=== PATIENT | female | born 1995 ===

== ENCOUNTER 2017-01-15 23:01 | Emergency (ER) | payer MEDICAID, OTHER ==
[2017-01-15 23:07] VITALS: BP 121/74; PULSE 88; RESP 18; TEMP 98; O2SAT 100
--- NOTE | 2017-01-15 23:45 | ED PDOC ---
HPI: Abdomen Time Seen by Provider: 01/15/17 23:14 Chief Complaint (Nursing): Abdominal Pain Chief Complaint (Provider): Abdominal Pain History Per: Patient History/Exam Limitations: no limitations Onset/Duration Of Symptoms: Days (4x), Worse Since (yesterday) Current Symptoms Are (Timing): Still Present Severity: Moderate Location Of Pain/Discomfort: Suprapubic Quality Of Discomfort: Cramping Associated Symptoms: denies: Fever, Nausea, Vomiting, Diarrhea Additional Complaint(s): 21 year old female with a pertinent medical history of sickle cell anemia presents to the ED with complaints of severe menstrual cramps that started 4x days ago but have worsened since yesterday. She reports that she has severe menstrual cramps on occasion and has taken 250mg ibuprofen today 6x hours prior to arrival (unclear dosage?). She denies having any associated symptoms including a fever, nausea, vomiting, or diarrhea. PMD: Patient does not recall. Abnormal Vaginal Bleeding: No Past Medical History Reviewed: Historical Data, Nursing Documentation Vital Signs: Last Vital Signs Temp 98 F 01/15/17 23:04 Pulse 88 01/15/17 23:04 Resp 18 01/15/17 23:04 BP 121/74 01/15/17 23:04 Pulse Ox 100 01/15/17 23:55 - Medical History PMH: Asthma, Sickle Cell Disease Denies: Anemia, Atrial Fibrillation, Bronchitis, CAD, Cardia Arrhythmia, CHF , COPD, Emphysema, HIV, HTN, Hypercholesterolemia, Mitral Valve Prolapse, Peripheral Edema, Pneumonia, Pulmonary Embolism, Chronic Kidney Disease, Sleep Apnea - Surgical History Surgical History: Cholecystectomy, Tonsillectomy Denies: Pacemaker - Family History Family History: States: Unknown Family Hx - Social History Alcohol: None Drugs: Denies - Home Medications Home Medications: Ambulatory Orders Medication Instructions Recorded Folic Acid 1 mg PO DAILY 04/25/16 Hydroxyurea [Hydrea] 1,500 mg PO DAILY 04/25/16 oxyCODONE/Acetaminophen [Percocet 1 tab PO Q4 PRN #0 tab 04/27/16 5/325 mg Tab] Ketorolac Tromethamine [Toradol] 10 mg PO Q6 #12 tab 01/15/17 - Allergies Allergies/Adverse Reactions: Allergies Allergy/AdvReac Type Severity Reaction Status Date / Time No Known Allergies Allergy Verified 04/24/16 23:11 Review of Systems ROS Statement: Except As Marked, All Systems Reviewed And Found Negative Constitutional: Negative for: Fever Gastrointestinal: Positive for: Abdominal Pain (suprapubic ). Negative for: Nausea, Vomiting, Diarrhea Genitourinary Female: Positive for: Vaginal Bleeding (consistent with menstrual cycle) Physical Exam - Reviewed Nursing Documentation Reviewed: Yes Vital Signs Reviewed: Yes - Physical Exam Appears: Positive for: Well, Non-toxic, No Acute Distress Head Exam: Positive for: ATRAUMATIC, NORMOCEPHALIC Skin: Positive for: Pallor (slight pale skin) Eye Exam: Positive for: Scleral icterus (slight) Neurologic/Psych: Positive for: Alert, Oriented (3x) - ECG O2 Sat by Pulse Oximetry: 100 (RA) Pulse Ox Interpretation: Normal Medical Decision Making Medical Decision Makin:14 Initial impression: 21 year old female with severe menstrual cramps. Initial plan: * upreg * udip * toradol 60mg IM * reevaluation 1145PM: Pt. reports complete resolution of pain after tordaol and wants to go home. Told to f/u w/ [employer] or return for worsening/concerning symptoms. Scribe Attestation: Documented by Garima Rothman, acting as a scribe for Vikram Song MD. Provider Scribe Attestation: All medical record entries made by the Scribe were at my direction and personally dictated by me. I have reviewed the chart and agree that the record accurately reflects my personal performance of the history, physical exam, medical decision making, and the department course for this patient. I have also personally directed, reviewed, and agree with the discharge instructions and disposition. Disposition - Clinical Impression Clinical Impression: Menstrual cramp - Disposition [facility] Disposition: Routine/Home Disposition Time: 23:45 Condition: STABLE Prescriptions: Ketorolac Tromethamine [Toradol] 10 mg PO Q6 #12 tab Instructions: Dysmenorrhea (ED) Print Language: URUGUAYAN
== END 2017-01-16 00:04 | disposition home or self-care (01) ==
LOC: H.ER 23:01
DX: N94.6 Dysmenorrhea, unspecified (principal)

== ENCOUNTER 2017-01-16 11:34 | Emergency (ER) | payer OTHER ==
[2017-01-16 11:39] VITALS: O2SAT 97
[2017-01-16 12:32] LABS: HEMATOCRIT 28.1 % (34.0-47.0); MEAN CELL VOLUME 102.9 fl (81.0-99.0); MEAN CORPUSCULAR HEMOGLOBIN 37.5 pg (27.0-31.0); MEAN CORPUSCULAR HGB CONC 36.4 g/dL (33.0-37.0); PLATELET COUNT 439 K/uL (130-400); RED CELL DISTRIBUTION WIDTH 23.4 % (11.5-14.5); WHITE BLOOD COUNT 17.4 K/uL (4.8-10.8)
[2017-01-16 12:51] LABS: ALB/GLOB RATIO 0.9 (1.0-2.1); ALKALINE PHOSPHATASE 152 U/L (38-126); ALT/SGPT 27 U/L (9-52); AST/SGOT 101 U/L (14-36); BILIRUBIN,TOTAL 6.8 mg/dl (0.2-1.3); BLOOD UREA NITROGEN 8 mg/dl (7-17); CALCIUM 9.6 mg/dL (8.4-10.2); CARBON DIOXIDE 21 mmol/L (22-30); CHLORIDE 104 mmol/L (98-107); GFR AFRICAN-AMERICAN > 60; GLUCOSE,RANDOM 100 mg/dL (65-105); SODIUM 140 mmol/l (132-148); TOTAL PROTEIN 9.6 G/DL (6.3-8.2)
[2017-01-16 12:53] LABS: POTASSIUM 5.4 MMOL/L (3.6-5.0)
[2017-01-16] MEDS ORDERED: Sodium Chloride 0.9% 1,000 ML IV STA (13:22)
[2017-01-16 13:23] LABS: NEUTROPHIL 76 % (42-75); NUCLEATED RED BLOOD CELL 1 % (0-0); TOTAL CELLS COUNTED 100
[2017-01-16 13:24] LABS: GIANT PLATELETS PRESENT; LARGE PLATELETS PRESENT
--- NOTE | 2017-01-16 14:34 | RAD ---
HISTORY: elevated wbc, back pain COMPARISON: 11/22/2016. TECHNIQUE: Chest PA and lateral FINDINGS: LUNGS: The lungs are well inflated and clear. PLEURA: No significant pleural effusion identified. No pneumothorax apparent. CARDIOVASCULAR: Normal. OSSEOUS STRUCTURES: No significant abnormalities. VISUALIZED UPPER ABDOMEN: Normal. OTHER FINDINGS: None. IMPRESSION: No active pulmonary disease.
[2017-01-16 14:41] LABS: RBC URINE 2 /hpf (0-3); URINE BACTERIA OCC (<OCC); URINE BILIRUBIN NEGATIVE (NEGATIVE); URINE BLOOD SMALL (NEGATIVE); URINE COLOR AMBER (YELLOW); URINE GLUCOSE (UA) NEG (Normal); URINE KETONE TRACE mg/dL (NEGATIVE); URINE LEUKOCYTE ESTERASE NEG Leu/uL (Negative); URINE PROTEIN 30 mg/dL (NEGATIVE); WBC URINE 11 /hpf (0-5)
[2017-01-16] MEDS ORDERED: cefTRIAXone (Rocephin) 1 gm Inj ONE (17:58)
--- NOTE | 2017-01-16 18:25 | ED PDOC ---
HPI: Back Time Seen by Provider: 01/16/17 11:39 Chief Complaint (Nursing): Back Pain Chief Complaint (Provider): Low Back Pain History Per: Patient History/Exam Limitations: no limitations Onset/Duration Of Symptoms: Hrs (since this morning) Current Symptoms Are (Timing): Still Present Quality Of Discomfort: Other (similar to previous sickle cell crisis) Severity: Moderate Associated Symptoms: Other (b/l leg pain) Additional Complaint(s): Patric Fernandez is a 21 year old female, with a past medical history inclusive of sickle cell anemia, who presents to the ED on 01/16/17 for the evaluation of moderate lower back and b/l leg pain that she has experienced since this morning ; further described as similar to that felt during previous sickle cell crises. Denies acute injury/trauma as well as numbness/tingling, URI symptoms, nausea, vomiting or diarrhea. Of note, patient had presented to the ED yesterday with complaints of menstrual cramps, for which she had been given Toradol prior to being discharged home. PMD: does not remember Past Medical History Reviewed: Historical Data, Nursing Documentation, Vital Signs Vital Signs: Last Vital Signs Temp 97 F L 01/16/17 11:35 Pulse 120 H 01/16/17 11:35 Resp 18 01/16/17 11:35 BP 101/52 L 01/16/17 11:35 Pulse Ox 97 01/16/17 11:35 - Medical History PMH: Asthma, Sickle Cell Disease Denies: Atrial Fibrillation, Bronchitis, CAD, Cardia Arrhythmia, CHF, COPD, Emphysema, HIV, HTN, Hypercholesterolemia, Mitral Valve Prolapse, Peripheral Edema, Pneumonia, Pulmonary Embolism, Chronic Kidney Disease, Sleep Apnea - Surgical History Surgical History: Cholecystectomy, Tonsillectomy Denies: Pacemaker - Family History Family History: States: Unknown Family Hx - Social History Current smoker - smoking cessation education provided: No Alcohol: None Drugs: Denies - Home Medications Home Medications: Ambulatory Orders Medication Instructions Recorded Folic Acid 1 mg PO DAILY 04/25/16 Hydroxyurea [Hydrea] 1,500 mg PO DAILY 04/25/16 oxyCODONE/Acetaminophen [Percocet 1 tab PO Q4 PRN #0 tab 04/27/16 5/325 mg Tab] Ketorolac Tromethamine [Toradol] 10 mg PO Q6 #12 tab 01/15/17 Cephalexin [Keflex] 500 mg PO TID #21 capsule 01/16/17 - Allergies Allergies/Adverse Reactions: Allergies Allergy/AdvReac Type Severity Reaction Status Date / Time No Known Allergies Allergy Verified 04/24/16 23:11 Review of Systems ROS Statement: Except As Marked, All Systems Reviewed And Found Negative ENT: Negative for: Nose Discharge, Throat Pain Cardiovascular: Negative for: Chest Pain Respiratory: Negative for: Cough, Shortness of Breath Gastrointestinal: Negative for: Nausea, Vomiting, Diarrhea Musculoskeletal: Positive for: Back Pain (low back), Leg Pain (b/l leg) Neurological: Negative for: Weakness, Numbness Physical Exam - Reviewed Nursing Documentation Reviewed: Yes Vital Signs Reviewed: Yes - Physical Exam Appears: Positive for: Non-toxic, No Acute Distress Head Exam: Positive for: ATRAUMATIC, NORMOCEPHALIC Skin: Positive for: Normal Color, Warm, Dry. Negative for: Pallor Eye Exam: Positive for: Normal appearance, PERRL ENT: Positive for: Normal ENT Inspection. Negative for: Pharyngeal Erythema, Tonsillar Exudate, Tonsillar Swelling Neck: Positive for: Normal, Painless ROM, Supple Cardiovascular/Chest: Positive for: Regular Rate, Rhythm. Negative for: Murmur Respiratory: Positive for: Normal Breath Sounds. Negative for: Respiratory Distress Gastrointestinal/Abdominal: Positive for: Normal Exam, Soft. Negative for: Tenderness Back: Positive for: Normal Inspection Extremity: Positive for: Normal ROM (moving all extremities well), Capillary Refill (<2 seconds) Neurologic/Psych: Positive for: Alert, Oriented. Negative for: Motor/Sensory Deficits - Laboratory Results Result Diagrams: 01/16/17 12:28 01/16/17 12:28 - ECG O2 Sat by Pulse Oximetry: 97 (RA) Pulse Ox Interpretation: Normal Medical Decision Making Medical Decision Makin:39 Initial Impression: back pain, leg pain in setting of known history of sickle cell crisis Initial Plan: * CXR * Labs * Reticulocyte Count * Upreg * Udip * IV NS 1000ml at 1000mls/hr * Toradol 30mg IV * Reevaluation 15:38 Patient is complaining of persistent pain despite administration of Toradol, will order Morphine 4mg IV. 16:37 Labs reviewed, hemoglobin/hematocrit and reticulocyte levels are at baseline as compared with previous records, however patient is demonstrating some notable leukocytosis (17.4). Urine dip is indicative of UTI, will order urinalysis and culture as well as administration of Rocephin IVPB. 18:09 Upon provider reevaluation patient reports improvement in pain s/p administration of Morphine. Scribe Attestation: Documented by Lindsey Ruelas, acting as a scribe for Flower Caballero PA-C. Provider Scribe Attestation: All medical record entries made by the Scribe were at my direction and personally dictated by me. I have reviewed the chart and agree that the record accurately reflects my personal performance of the history, physical exam, medical decision making, and the department course for this patient. I have also personally directed, reviewed, and agree with the discharge instructions and disposition. Disposition - Clinical Impression Clinical Impression: Sickle cell anemia, UTI (urinary tract infection) - Patient ED Disposition Is Patient to be Admitted: No Counseled Patient/Family Regarding: Diagnosis, Need For Followup, Rx Given - Disposition Referrals: [facility] [Outside] Disposition: Routine/Home Disposition Time: 18:43 Condition: GOOD Prescriptions: Cephalexin [Keflex] 500 mg PO TID #21 capsule Instructions: Urinary Tract Infection in Women (ED)
[2017-01-16 18:56] VITALS: BP 110/68; PULSE 89; RESP 19; TEMP 98.6
== END 2017-01-16 19:15 | disposition home or self-care (01) ==
LOC: H.ER 11:34
DX: N39.0 Urinary tract infection, site not specified (principal); D72.829 Elevated white blood cell count, unspecified; D57.219 Sickle-cell/Hb-C disease with crisis, unspecified; M79.606 Pain in leg, unspecified

== ENCOUNTER 2017-05-28 21:44 | Inpatient (IN) | payer MEDICAID, OTHER ==
[2017-05-28 22:06] VITALS: BMI 24.7
--- NOTE | 2017-05-28 22:15 | ED PDOC ---
HPI: Chest Pain Chief Complaint (Provider): Chest pain and left leg pain History Per: Patient History/Exam Limitations: no limitations Onset/Duration Of Symptoms: Hrs Current Symptoms Are (Timing): Still Present Severity: Severe Pain Scale Rating Of: 10 Front/Back of Body, Lg (Color): 1 - Pain 2 - Pain Modifying Factors: None <Flower Caballero - Last Filed: 05/28/17 23:24> <Carol Torres - Last Filed: 05/29/17 15:52> Time Seen by Provider: 05/28/17 21:51 Chief Complaint (Nursing): Chest Pain Additional Complaint(s): Pt with history of sickle cell anemia presents with central chest pain, non- radiating and left leg pain. Pt states leg left pain is common for her with the SSA however the chest pain is new. Pt reports no SOB or worsening pain with inspiration. Denies N/V/D. Pt reports taking her oxycodone today and states it did not help the pain. (Flower Caballero) Supervising Attending Note <Flower Caballero - Last Filed: 05/28/17 23:24> - Supervising Attending Note The Documented history was done by the: Physician Digital Operations Analyst The documented physical exam was done by the: Physician Digital Operations Analyst, Attending Physician - Attestation: I have personally seen and examined this patient.: Yes I have fully participated in the care of the patient.: Yes I have reviewed all pertinent clinical information: Yes <Carol Torres - Last Filed: 05/29/17 15:52> - Notes: Notes:: Pt's physician switched to Dr Hendrickson. (Carol Torres) Past Medical History Reviewed: Historical Data, Nursing Documentation, Vital Signs - Medical History PMH: Asthma, Sickle Cell Disease Denies: Anemia, Atrial Fibrillation, Bronchitis, CAD, Cardia Arrhythmia, CHF , COPD, Emphysema, HIV, HTN, Hypercholesterolemia, Mitral Valve Prolapse, Peripheral Edema, Pneumonia, Pulmonary Embolism, Chronic Kidney Disease, Sleep Apnea - Surgical History Surgical History: Cholecystectomy (At age 11), Tonsillectomy Denies: Pacemaker - Family History Family History: States: Unknown Family Hx - Living Arrangements Living Arrangements: With Family - Social History Current smoker - smoking cessation education provided: No Alcohol: None Drugs: Denies <Flower Caballero - Last Filed: 05/28/17 23:24> <BrianCarol J - Last Filed: 05/29/17 15:52> Vital Signs: Last Vital Signs Temp 98.8 F 05/29/17 12:28 Pulse 85 05/29/17 12:28 Resp 20 05/29/17 12:28 BP 110/62 05/29/17 12:28 Pulse Ox 95 05/29/17 12:28 - Home Medications Home Medications: Ambulatory Orders Medication Instructions Recorded Folic Acid 1 mg PO DAILY #30 01/18/17 Hydroxyurea [Hydrea] 1,500 mg PO DAILY #30 01/18/17 Ibuprofen [Motrin Tab] 400 mg PO Q6H PRN #30 tab 01/18/17 oxyCODONE/Acetaminophen [Percocet 1 ea PO Q6 PRN #10 tab 01/18/17 5/325 mg Tab] - Allergies Allergies/Adverse Reactions: Allergies Allergy/AdvReac Type Severity Reaction Status Date / Time No Known Allergies Allergy Verified 05/28/17 22:06 Review of Systems ROS Statement: Except As Marked, All Systems Reviewed And Found Negative Constitutional: Negative for: Fever, Chills Cardiovascular: Positive for: Chest Pain. Negative for: Palpitations Respiratory: Negative for: Cough, Shortness of Breath Musculoskeletal: Positive for: Leg Pain <Flower Caballero - Last Filed: 05/28/17 23:24> Physical Exam - Reviewed Nursing Documentation Reviewed: Yes Vital Signs Reviewed: Yes - Physical Exam Appears: Positive for: Well, Non-toxic, No Acute Distress Head Exam: Positive for: ATRAUMATIC, NORMAL INSPECTION, NORMOCEPHALIC Skin: Positive for: Normal Color, Warm, DRY Eye Exam: Positive for: Normal appearance ENT: Positive for: Normal ENT Inspection Neck: Positive for: Normal, Painless ROM Cardiovascular/Chest: Positive for: Regular Rate, Rhythm. Negative for: Chest Non Tender ((+) central chest tenderness to palpation ) Respiratory: Positive for: Normal Breath Sounds. Negative for: Respiratory Distress Gastrointestinal/Abdominal: Positive for: Normal Exam, Bowel Sounds, Soft Back: Positive for: Normal Inspection Extremity: Positive for: Normal ROM Neurologic/Psych: Positive for: Alert, Oriented <Flower Caballero - Last Filed: 05/28/17 23:24> - Laboratory Results Result Diagrams: 05/28/17 22:46 05/28/17 22:46 - ECG O2 Sat by Pulse Oximetry: 100 <Flower Caballero - Last Filed: 05/28/17 23:24> - Laboratory Results Result Diagrams: 05/29/17 06:00 05/29/17 06:00 <Carol Torres - Last Filed: 05/29/17 15:52> Medical Decision Making <Flower Caballero - Last Filed: 05/28/17 23:24> <Carol Torres - Last Filed: 05/29/17 15:52> Medical Decision Making: Previous labs reviewed. Patient Hb-SS which is consistent with SSD. Case discussed with Dr. Ortiz. (Flower Caballero) Disposition - Patient ED Disposition Is Patient to be Admitted: Yes - Disposition Disposition Time: 23:24 - Pt Status Changed To: Hospital Disposition Of: Observation - Admit Certification Admit to Inpatient:: Telemetry - POA Present On Arrival: None <Flower Caballero - Last Filed: 05/28/17 23:24> <Carol Torres - Last Filed: 05/29/17 15:52> - Clinical Impression Clinical Impression: Sickle cell crisis, Chest pain - Disposition Condition: STABLE
[2017-05-28 22:52] LABS: BASO # 0.1 K/uL (0.0-0.2); BASO % 0.9 % (0.0-2.0); EOS # 0.2 K/uL (0.0-0.7); HEMATOCRIT 26.4 % (34.0-47.0); LYMPH % 19.3 % (20.0-40.0); MEAN CELL VOLUME 110.3 fl (81.0-99.0); MEAN CORPUSCULAR HEMOGLOBIN 39.8 pg (27.0-31.0); MEAN CORPUSCULAR HGB CONC 36.1 g/dL (33.0-37.0); MEAN PLATELET VOLUME 8.5 fl (7.2-11.7); MONO # 1.5 K/uL (0.0-0.8); MONO % 9.8 % (0.0-10.0); NEUT # 10.9 K/uL (1.8-7.0); NRBC % 1.1 % (0.0-0.0); RED CELL DISTRIBUTION WIDTH 19.3 % (11.5-14.5); WHITE BLOOD COUNT 15.8 K/uL (4.8-10.8)
[2017-05-28 22:59] LABS: ALB/GLOB RATIO 1.2 (1.0-2.1); ALKALINE PHOSPHATASE 115 U/L (38-126); ALT/SGPT 57 U/L (9-52); AST/SGOT 105 U/L (14-36); BILIRUBIN,TOTAL 7.4 mg/dl (0.2-1.3); BLOOD UREA NITROGEN 10 mg/dl (7-17); CALCIUM 9.5 mg/dL (8.4-10.2); CARBON DIOXIDE 22 mmol/L (22-30); CHLORIDE 105 mmol/L (98-107); GFR AFRICAN-AMERICAN > 60; GLUCOSE,RANDOM 124 mg/dL (65-105); SODIUM 137 mmol/l (132-148); TOTAL PROTEIN 9.1 G/DL (6.3-8.2)
[2017-05-28 23:12] LABS: POTASSIUM 5.4 MMOL/L (3.6-5.0)
[2017-05-28] MEDS ORDERED: Sodium Chloride 0.9% 1,000 ML IV STA (23:25)
[2017-05-29] MEDS: Sodium Chloride 0.9% 1,000 ML IV SCH ×4 (00:05→19:03)
[2017-05-29] MEDS ORDERED: Pneumococcal 23-Valent Vaccine IM ONE (06:15)
[2017-05-29 08:21] LABS: HEMATOCRIT 24.9 % (34.0-47.0); MEAN CELL VOLUME 111.5 fl (81.0-99.0); MEAN CORPUSCULAR HGB CONC 35.9 g/dL (33.0-37.0); RED CELL DISTRIBUTION WIDTH 18.6 % (11.5-14.5); WHITE BLOOD COUNT 17.4 K/uL (4.8-10.8)
[2017-05-29 08:26] LABS: BLOOD UREA NITROGEN 5 mg/dl (7-17); CALCIUM 9.2 mg/dL (8.4-10.2); CARBON DIOXIDE 25 mmol/L (22-30); CHLORIDE 102 mmol/L (98-107); GFR AFRICAN-AMERICAN > 60; GLUCOSE,RANDOM 104 mg/dL (65-105); POTASSIUM 4.8 MMOL/L (3.6-5.0); SODIUM 136 mmol/l (132-148)
[2017-05-29] MEDS: Enoxaparin 40 mg Syringe SC SCH (09:32)
--- NOTE | 2017-05-29 10:06 | RAD ---
HISTORY: chest pain COMPARISON: Comparison made with prior study 01/17/2017 TECHNIQUE: Chest PA and lateral FINDINGS: LUNGS: No active pulmonary disease. PLEURA: No significant pleural effusion identified. No pneumothorax apparent. CARDIOVASCULAR: Normal. OSSEOUS STRUCTURES: No significant abnormalities. VISUALIZED UPPER ABDOMEN: Normal. Metallic surgical clips the right parasagittal mid abdomen OTHER FINDINGS: None. IMPRESSION: No active disease.
--- NOTE | 2017-05-29 11:28 | CARD ---
APPROVED REPORT EKG Measurement Heart [id number] ID [id number] <Conclusion> Normal sinus rhythm with sinus arrhythmia Normal ECG
--- NOTE | 2017-05-29 12:01 | CP.PCM.HP ---
History of Present Illness - History of Present Illness History of Present Illness: This is a 21 y/o female admitted for sickle cell crisis. She claims that she started having pain on the left knee and posterior fossa of the left knee and has recurrent chest pain. She follows up with a pillow agent in [place]. She claims that she has been compliant with her medications. Today patient complains of pruritus on all parts of her body. She received Morphine and dilaudid. She takes oxycodone at home for pain. Present on Admission - Present on Admission Any Indicators Present on Admission: No History of DVT/PE: No History of Uncontrolled Diabetes: No Urinary Catheter: No Decubitus Ulcer Present: No Review of Systems - Musculoskeletal Musculoskeletal: Arthralgias, Myalgias Past Patient History - Past Medical History & Family History Past Medical History?: Yes - Past Social History Smoking Status: Never Smoked - CARDIAC Hx Cardiac Disorders: No Hx Atrial Fibrillation: No Hx Cardia Arrhythmia: No Hx Congestive Heart Failure: No Hx Hypercholesterolemia: No Hx Hypertension: No Hx Mitral Valve Prolapse: No Hx Pacemaker: No Hx Peripheral Edema: No - PULMONARY Hx Asthma: Yes Hx Bronchitis: No Hx Chronic Obstructive Pulmonary Disease (COPD): No Hx Emphysema: No Hx Pneumonia: No Hx Pulmonary Embolism: No Hx Sleep Apnea: No - NEUROLOGICAL Hx Neurological Disorder: No - HEENT Hx HEENT Problems: No - RENAL Hx Chronic Kidney Disease: No - ENDOCRINE/METABOLIC Hx Endocrine Disorders: No - HEMATOLOGICAL/ONCOLOGICAL Hx AIDS: No Hx Anemia: No Hx Human Immunodeficiency Virus (HIV): No Hx Sickle Cell Disease: Yes - INTEGUMENTARY Hx Dermatological Problems: No - MUSCULOSKELETAL/RHEUMATOLOGICAL Hx Musculoskeletal Disorders: No Hx Falls: No - GASTROINTESTINAL Hx Gastrointestinal Disorders: No - GENITOURINARY/GYNECOLOGICAL Hx Genitourinary Disorders: No - PSYCHIATRIC Hx Psychophysiologic Disorder: No Hx Substance Use: No - SURGICAL HISTORY Hx Cholecystectomy: Yes (At age 11) Hx Tonsillectomy: Yes - ANESTHESIA Hx Anesthesia: Yes Hx Anesthesia Reactions: No Hx Malignant Hyperthermia: No Has any member of the family had a problem w/ anesthesia?: No Meds Allergies/Adverse Reactions: Allergies Allergy/AdvReac Type Severity Reaction Status Date / Time No Known Allergies Allergy Verified 05/28/17 22:06 Physical Exam - Head Exam Head Exam: NORMAL INSPECTION - Eye Exam Eye Exam: Normal appearance - ENT Exam ENT Exam: Mucous Membranes Moist - Respiratory Exam Respiratory Exam: Clear to Auscultation Bilateral - Cardiovascular Exam Cardiovascular Exam: REGULAR RHYTHM - GI/Abdominal Exam GI & Abdominal Exam: Normal Bowel Sounds - Extremities Exam Extremities exam: Positive for: joint swelling - Neurological Exam Neurological exam: CN II-XII Intact, Oriented x3 - Psychiatric Exam Psychiatric exam: Normal Mood Results - Vital Signs Recent Vital Signs: Last Vital Signs Temp 97.7 F 05/29/17 10:27 Pulse 78 05/29/17 10:27 Resp 18 05/29/17 10:27 BP 104/60 05/29/17 10:27 Pulse Ox 95 05/29/17 10:27 - Labs Result Diagrams: 05/29/17 06:00 05/29/17 06:00 Labs: Laboratory Results - last 24 hr 05/29/17 05/29/17 05/29/17 00:44 06:00 06:00 WBC 17.4 H RBC 2.23 L Hgb 8.9 L Hct 24.9 L MCV 111.5 H MCH 40.0 H MCHC 35.9 RDW 18.6 H Plt Count 308 Sodium 136 Potassium 4.8 Chloride 102 Carbon Dioxide 25 Anion Gap 14 BUN 5 L Creatinine 0.3 L Est GFR ( Amer) > 60 Est GFR (Non-Af Amer) > 60 Random Glucose 104 Calcium 9.2 Troponin I Free T4 1.16 05/29/17 06:00 WBC RBC Hgb Hct MCV MCH MCHC RDW Plt Count Sodium Potassium Chloride Carbon Dioxide Anion Gap BUN Creatinine Est GFR ( Amer) Est GFR (Non-Af Amer) Random Glucose Calcium Troponin I < 0.0120 Free T4 Assessment & Plan (1) Sickle cell crisis Status: Acute (2) Knee pain Status: Acute (3) Chest pain Status: Acute (4) Leucocytosis Status: Acute (5) Abnormal liver enzymes Status: Acute - Assessment and Plan (Free Text) Plan: start hydration pain meds solumedrol benadryl DC Dilaudid or morphine percocet for pain. cbc cmp in am.
[2017-05-29] MEDS ORDERED: Oxycodone/Acetaminophen 5/325 mg Tab PO PRN (12:17)
[2017-05-29] MEDS ORDERED: DiphenhydrAMINE 50 mg/ml Inj IVP ONE (12:30)
[2017-05-29] MEDS ORDERED: methylPREDNISolone 40 MG in Sodium Chloride 0.9% 50 ML IVPB ONE (13:00)
[2017-05-29] MEDS: Oxycodone/Acetaminophen 5/325 mg Tab PO PRN ×2 (16:30→23:57)
[2017-05-30] MEDS: Oxycodone/Acetaminophen 5/325 mg Tab PO PRN ×2 (04:11→08:11)
[2017-05-30] MEDS: Sodium Chloride 0.9% 1,000 ML IV SCH ×3 (04:12→16:24)
[2017-05-30 06:49] LABS: ALB/GLOB RATIO 1.1 (1.0-2.1); ALKALINE PHOSPHATASE 106 U/L (38-126); ALT/SGPT 59 U/L (9-52); AST/SGOT 69 U/L (14-36); BILIRUBIN,TOTAL 7.5 mg/dl (0.2-1.3); BLOOD UREA NITROGEN 7 mg/dl (7-17); CALCIUM 9.4 mg/dL (8.4-10.2); CARBON DIOXIDE 24 mmol/L (22-30); CHLORIDE 107 mmol/L (98-107); GFR AFRICAN-AMERICAN > 60; GLUCOSE,RANDOM 108 mg/dL (65-105); POTASSIUM 4.7 MMOL/L (3.6-5.0); SODIUM 141 mmol/l (132-148); TOTAL PROTEIN 8.3 G/DL (6.3-8.2)
[2017-05-30 06:55] LABS: MEAN CELL VOLUME 109.6 fl (81.0-99.0); MEAN CORPUSCULAR HEMOGLOBIN 41.5 pg (27.0-31.0); MEAN CORPUSCULAR HGB CONC 37.9 g/dL (33.0-37.0); RED CELL DISTRIBUTION WIDTH 20.3 % (11.5-14.5); WHITE BLOOD COUNT 13.3 K/uL (4.8-10.8)
[2017-05-30] MEDS: Enoxaparin 40 mg Syringe SC SCH (08:13)
--- NOTE | 2017-05-30 10:56 | CP.PCM.PN ---
Subjective - Date & Time of Evaluation Date of Evaluation: 05/30/17 Time of Evaluation: 10:53 - Subjective Subjective: Noted decrease in Hgb but improvement of liver enzymes. Still with a lot of pain on the left knee area. Not responding to 10 mg Percocet Has no fever Has no chest pain On IV an oral hydration. Objective - Vital Signs/Intake and Output Vital Signs (last 24 hours): Temp Pulse Resp BP Pulse Ox 98.4 F 74 18 120/75 95 05/30/17 08:57 05/30/17 08:57 05/30/17 08:57 05/30/17 08:57 05/30/17 08:57 Intake and Output: 05/30/17 05/30/17 06:59 18:59 Intake Total 1650 Balance 1650 - Medications Medications: Current Medications Acetaminophen (Tylenol 325mg Tab) 650 mg PO Q6 PRN PRN Reason: Fever >100.4 F Enoxaparin Sodium (Lovenox) 40 mg SC DAILY [facility] PRN Reason: Protocol Last Admin: 05/30/17 08:13 Dose: 40 mg Folic Acid (Folic Acid) 1 mg PO DAILY [facility] Last Admin: 05/30/17 08:13 Dose: 1 mg Hydroxyurea (Hydrea) 1,500 mg PO DAILY [facility] Last Admin: 05/30/17 08:13 Dose: 1,500 mg Sodium Chloride (Sodium Chloride 0.9%) 1,000 mls @ 150 mls/hr IV .Q6H40M [facility] Stop: 05/30/17 12:21 Last Admin: 05/30/17 08:18 Dose: 150 mls/hr Ibuprofen (Motrin Tab) 600 mg PO TID PRN PRN Reason: Pain, Mild (1-3) Last Admin: 05/29/17 16:00 Dose: 600 mg Oxycodone/Acetaminophen (Percocet 5/325 Mg Tab) 1 tab PO Q4 PRN PRN Reason: Pain, moderate (4-7) Stop: 06/01/17 12:18 Last Admin: 05/29/17 12:42 Dose: 1 tab Oxycodone/Acetaminophen (Percocet 5/325 Mg Tab) 2 tab PO Q4 PRN PRN Reason: Pain, severe (8-10) Stop: 06/01/17 16:23 Last Admin: 05/30/17 08:11 Dose: 2 tab - Labs Labs: 05/30/17 06:05 05/30/17 06:05 - Head Exam Head Exam: NORMAL INSPECTION - Eye Exam Eye Exam: Normal appearance - ENT Exam ENT Exam: Mucous Membranes Moist - Respiratory Exam Respiratory Exam: Clear to Ausculation Bilateral - Cardiovascular Exam Cardiovascular Exam: REGULAR RHYTHM - GI/Abdominal Exam GI & Abdominal Exam: Normal Bowel Sounds - Neurological Exam Neurological Exam: Awake, Oriented x3 - Psychiatric Exam Psychiatric exam: Normal Mood Assessment and Plan (1) Sickle cell crisis Status: Acute (2) Knee pain Status: Acute (3) Chest pain Status: Acute (4) Leucocytosis Status: Acute (5) Abnormal liver enzymes Status: Acute - Assessment and Plan (Free Text) Plan: Continue hydration IV fluids Dilaudid Hmatology eval repeat labs in am Pain mgt arterial venous US of the left lower ext/ knee.
--- NOTE | 2017-05-30 14:46 | RAD ---
PROCEDURE: Radiographs of the bilateral Tibiae and Fibulae. HISTORY: PAIN LEFT LEG COMPARISON: None available. TECHNIQUE: Frontal and lateral views of the right and left tibia/ fibula performed FINDINGS: BONES: RIGHT TIBIA: No fracture or destructive lesion. LEFT TIBIA: No fracture or destructive lesion. JOINT SPACES: RIGHT TIBIA: Normal. LEFT TIBIA: Normal. SOFT TISSUES: RIGHT TIBIA: Normal. LEFT TIBIA: Normal. OTHER FINDINGS: None. IMPRESSION: Unremarkable radiographs of the bilateral tibia and fibula.
--- NOTE | 2017-05-30 15:41 | US ---
HISTORY: LEFT LEG PAIN . PRIORS: None. FINDINGS: 2-D, color and duplex Doppler analysis of the lower extremity venous circulation using routine protocol from the femoral veins through the popliteal veins. Venous compressibility: Normal. Flow and augmentation patterns: Normal. Visualized veins upper third of calf: Normal. Hope cyst: None. IMPRESSION: No sonographic or Doppler evidence for DVT in left lower extremity.
[2017-05-31] MEDS: Sodium Chloride 0.9% 1,000 ML IV SCH ×3 (00:21→13:54)
[2017-05-31] MEDS: Enoxaparin 40 mg Syringe SC SCH (09:05)
--- NOTE | 2017-05-31 11:18 | CP.PCM.PN ---
Subjective - Date & Time of Evaluation Date of Evaluation: 05/31/17 Time of Evaluation: 09:15 - Subjective Subjective: Patient seen and examined with attending. Tmax 100.5, HR 90-100s Patient endorses better pain control with current medications, however still has chest and knee pain. She is sitting upright in bed, family is bedside. Awaiting recommendations from Heme/Onc. Objective - Vital Signs/Intake and Output Vital Signs (last 24 hours): Temp Pulse Resp BP Pulse Ox 99.1 F 96 H 18 132/85 95 05/31/17 08:01 05/31/17 08:01 05/31/17 08:01 05/31/17 08:01 05/31/17 08:01 Intake and Output: 05/31/17 05/31/17 06:59 18:59 Intake Total 1800 Balance 1800 - Medications Medications: Current Medications Acetaminophen (Tylenol 325mg Tab) 650 mg PO Q6 PRN PRN Reason: Fever >100.4 F Enoxaparin Sodium (Lovenox) 40 mg SC DAILY [facility] PRN Reason: Protocol Last Admin: 05/31/17 09:05 Dose: 40 mg Folic Acid (Folic Acid) 1 mg PO DAILY [facility] Last Admin: 05/31/17 09:03 Dose: 1 mg Hydromorphone HCl (Dilaudid) 2 mg IVP Q4 PRN PRN Reason: Pain, severe (8-10) Last Admin: 05/31/17 09:00 Dose: 2 mg Hydroxyurea (Hydrea) 1,500 mg PO DAILY [facility] Last Admin: 05/31/17 09:03 Dose: 1,500 mg Sodium Chloride (Sodium Chloride 0.9%) 1,000 mls @ 150 mls/hr IV .Q6H40M [facility] Stop: 05/31/17 16:17 Last Admin: 05/31/17 09:05 Dose: 150 mls/hr Ibuprofen (Motrin Tab) 600 mg PO TID PRN PRN Reason: Pain, Mild (1-3) Last Admin: 05/29/17 16:00 Dose: 600 mg Oxycodone/Acetaminophen (Percocet 5/325 Mg Tab) 1 tab PO Q4 PRN PRN Reason: Pain, moderate (4-7) Stop: 06/01/17 12:18 Last Admin: 05/29/17 12:42 Dose: 1 tab Oxycodone/Acetaminophen (Percocet 5/325 Mg Tab) 2 tab PO Q4 PRN PRN Reason: Pain, severe (8-10) Stop: 06/01/17 16:23 Last Admin: 05/30/17 08:11 Dose: 2 tab - Labs Labs: 05/30/17 06:05 05/30/17 06:05 - Constitutional Appears: Other (appears uncomfortable, not in distress) - Head Exam Head Exam: NORMAL INSPECTION - Eye Exam Eye Exam: Normal appearance - ENT Exam ENT Exam: Mucous Membranes Moist - Respiratory Exam Respiratory Exam: Clear to Ausculation Bilateral, NORMAL BREATHING PATTERN. absent: Rales, Wheezes, Respiratory Distress - Cardiovascular Exam Cardiovascular Exam: REGULAR RHYTHM, +S1, +S2. absent: Murmur - GI/Abdominal Exam GI & Abdominal Exam: Soft, Normal Bowel Sounds. absent: Distended, Tenderness - Neurological Exam Neurological Exam: Alert, Awake, CN II-XII Intact, Oriented x3 - Psychiatric Exam Psychiatric exam: Normal Affect, Normal Mood - Skin Skin Exam: Dry, Intact, Pallor, Warm Assessment and Plan (1) Sickle cell crisis Assessment & Plan: 21 year old female admitted for Sickle cell crisis, Tmax 100.5 this AM. HR: 90- 100s, leukocytosis trending down. anemia worsening likely secondary to IV hydration. Monitor for fever, tachycardia likely secondary to anemia and/or pain pain improved, c/w current pain control regimen heme/onc to evaluate patient IVF c/w hydroxyurea/folic acid Status: Acute (2) Chest pain Assessment & Plan: resolving Status: Acute (3) Knee pain Assessment & Plan: resolving Status: Acute (4) Leucocytosis Assessment & Plan: improving, trending down. tmax 100.5, monitor vs closely Status: Acute (5) DVT prophylaxis Assessment & Plan: lovenox Status: Acute (6) Abnormal liver enzymes Status: Acute
--- NOTE | 2017-05-31 12:37 | US ---
PROCEDURE: Duplex ultrasound of the left lower extremity arteries. HISTORY: PAIN COMPARISON: None available. TECHNIQUE: Grayscale and duplex Doppler evaluation of the left common femoral, superficial femoral, popliteal, posterior tibial and dorsalis pedis arteries was performed.. FINDINGS: COMMON FEMORAL ARTERY: Patent. Maximal flow velocity of 139 cm/s. No significant stenosis with triphasic spectral waveform evident. SUPERFICIAL FEMORAL ARTERY:Patent. Maximal flow velocity of 121 cm/s. No significant stenosis with triphasic spectral waveform evident. POPLITEAL ARTERY:Patent. Maximal flow velocity of 74 cm/s. No significant stenosis with triphasic spectral waveform evident. POSTERIOR TIBIAL ARTERY: Patent. Maximal flow velocity of 84 cm/s. No significant stenosis with triphasic spectral waveform evident. DORSALIS PEDIS ARTERY: Patent. Maximal flow velocity of 52 cm/s. No significant stenosis with triphasic spectral waveform evident. OTHER FINDINGS: None. IMPRESSION: Normal Duplex Doppler of the left lower extremity arteries.
--- NOTE | 2017-05-31 13:12 | CP.PCM.CON ---
History of Present Illness - History of Present Illness History of Present Illness: 21 year old female with a history of sickle cell anemia, admitted with sickle cell pain crisis. She reports to increasing pain involving her lower extremities and back despite oral pain medication. She feels stress and the weather exacerbated her sickle cell pain. She denies shortness of breath but does have pain around her ribs. She denies fevers and chills. Past medical history: Sickle cell anemia Past surgical history: Cholecystectomy Family history: Parents have the trait. Social history: Denies tobacco, alcohol, and illicit drug use. Allergies: NKA Review of systems: All remaining review of systems including HEENT, cardiovascular, respiratory, gastrointestinal, genitourinary, musculoskeletal, dermatologic, neurologic, and psychiatric are negative unless mentioned in the HPI. Past Patient History - Past Medical History & Family History Past Medical History?: Yes - Past Social History Smoking Status: Never Smoked - CARDIAC Hx Cardiac Disorders: No Hx Atrial Fibrillation: No Hx Cardia Arrhythmia: No Hx Congestive Heart Failure: No Hx Hypercholesterolemia: No Hx Hypertension: No Hx Mitral Valve Prolapse: No Hx Pacemaker: No Hx Peripheral Edema: No - PULMONARY Hx Asthma: Yes Hx Bronchitis: No Hx Chronic Obstructive Pulmonary Disease (COPD): No Hx Emphysema: No Hx Pneumonia: No Hx Pulmonary Embolism: No Hx Sleep Apnea: No - NEUROLOGICAL Hx Neurological Disorder: No - HEENT Hx HEENT Problems: No - RENAL Hx Chronic Kidney Disease: No - ENDOCRINE/METABOLIC Hx Endocrine Disorders: No - HEMATOLOGICAL/ONCOLOGICAL Hx AIDS: No Hx Anemia: No Hx Human Immunodeficiency Virus (HIV): No Hx Sickle Cell Disease: Yes - INTEGUMENTARY Hx Dermatological Problems: No - MUSCULOSKELETAL/RHEUMATOLOGICAL Hx Musculoskeletal Disorders: No Hx Falls: No - GASTROINTESTINAL Hx Gastrointestinal Disorders: No - GENITOURINARY/GYNECOLOGICAL Hx Genitourinary Disorders: No - PSYCHIATRIC Hx Psychophysiologic Disorder: No Hx Substance Use: No - SURGICAL HISTORY Hx Cholecystectomy: Yes (At age 11) Hx Tonsillectomy: Yes - ANESTHESIA Hx Anesthesia: Yes Hx Anesthesia Reactions: No Hx Malignant Hyperthermia: No Has any member of the family had a problem w/ anesthesia?: No Meds Allergies/Adverse Reactions: Allergies Allergy/AdvReac Type Severity Reaction Status Date / Time No Known Allergies Allergy Verified 05/28/17 22:06 - Medications Medications: Current Medications Acetaminophen (Tylenol 325mg Tab) 650 mg PO Q6 PRN PRN Reason: Fever >100.4 F Enoxaparin Sodium (Lovenox) 40 mg SC DAILY [facility] PRN Reason: Protocol Last Admin: 05/31/17 09:05 Dose: 40 mg Folic Acid (Folic Acid) 1 mg PO DAILY [facility] Last Admin: 05/31/17 09:03 Dose: 1 mg Hydromorphone HCl (Dilaudid) 2 mg IVP Q4 PRN PRN Reason: Pain, severe (8-10) Last Admin: 05/31/17 13:05 Dose: 2 mg Hydroxyurea (Hydrea) 1,500 mg PO DAILY [facility] Last Admin: 05/31/17 09:03 Dose: 1,500 mg Sodium Chloride (Sodium Chloride 0.9%) 1,000 mls @ 150 mls/hr IV .Q6H40M [facility] Stop: 05/31/17 16:17 Last Admin: 05/31/17 09:05 Dose: 150 mls/hr Ibuprofen (Motrin Tab) 600 mg PO TID PRN PRN Reason: Pain, Mild (1-3) Last Admin: 05/29/17 16:00 Dose: 600 mg Oxycodone/Acetaminophen (Percocet 5/325 Mg Tab) 1 tab PO Q4 PRN PRN Reason: Pain, moderate (4-7) Stop: 06/01/17 12:18 Last Admin: 05/29/17 12:42 Dose: 1 tab Oxycodone/Acetaminophen (Percocet 5/325 Mg Tab) 2 tab PO Q4 PRN PRN Reason: Pain, severe (8-10) Stop: 06/01/17 16:23 Last Admin: 05/30/17 08:11 Dose: 2 tab Physical Exam - Head Exam Head Exam: ATRAUMATIC - Eye Exam Eye Exam: Normal appearance - ENT Exam ENT Exam: Mucous Membranes Dry - Respiratory Exam Respiratory Exam: NORMAL BREATHING PATTERN - Cardiovascular Exam Cardiovascular Exam: +S1, +S2 - GI/Abdominal Exam GI & Abdominal Exam: Normal Bowel Sounds - Extremities Exam Extremities exam: Positive for: normal inspection - Neurological Exam Neurological exam: Oriented x3 - Psychiatric Exam Psychiatric exam: Normal Affect, Normal Mood - Skin Skin Exam: Warm Results - Vital Signs Recent Vital Signs: Last Vital Signs Temp 98.8 F 05/31/17 12:04 Pulse 112 H 05/31/17 12:04 Resp 18 05/31/17 12:04 BP 115/77 05/31/17 12:04 Pulse Ox 93 L 05/31/17 12:04 - Labs Result Diagrams: 05/30/17 06:05 05/30/17 06:05 Assessment & Plan (1) Sickle cell pain crisis Assessment and Plan: Iv fluids, pain meds, folic acid, 02 via NC Status: Acute (2) Sickle cell anemia Assessment and Plan: folic acid and hydroxyurea Thank you for this interesting consult. Status: Acute
[2017-06-01 09:08] LABS: HEMATOCRIT 21.8 % (34.0-47.0); MEAN CELL VOLUME 110.1 fl (81.0-99.0); MEAN CORPUSCULAR HEMOGLOBIN 40.6 pg (27.0-31.0); MEAN CORPUSCULAR HGB CONC 36.8 g/dL (33.0-37.0); RED CELL DISTRIBUTION WIDTH 20.9 % (11.5-14.5); WHITE BLOOD COUNT 15.1 K/uL (4.8-10.8)
[2017-06-01 09:12] LABS: ALKALINE PHOSPHATASE 117 U/L (38-126); ALT/SGPT 45 U/L (9-52); AST/SGOT 50 U/L (14-36); BILIRUBIN,TOTAL 5.7 mg/dl (0.2-1.3); BLOOD UREA NITROGEN 5 mg/dl (7-17); CALCIUM 9.1 mg/dL (8.4-10.2); CARBON DIOXIDE 26 mmol/L (22-30); CHLORIDE 102 mmol/L (98-107); GFR AFRICAN-AMERICAN > 60; GLUCOSE,RANDOM 116 mg/dL (65-105); POTASSIUM 3.9 MMOL/L (3.6-5.0); SODIUM 136 mmol/l (132-148); TOTAL PROTEIN 7.5 G/DL (6.3-8.2)
[2017-06-01] MEDS: Enoxaparin 40 mg Syringe SC SCH (09:45)
[2017-06-01] MEDS: Sodium Chloride 0.9% 1,000 ML IV SCH (09:46)
--- NOTE | 2017-06-01 10:27 | CP.PCM.PN ---
Subjective - Date & Time of Evaluation Date of Evaluation: 06/01/17 Time of Evaluation: 12:41 - Subjective Subjective: Patient seen and examined with attending. Patient remains tachycardic: HR 100-110s. Her Hg is 8.0,trending down likely dilution 2' to IVF. Will transfuse 2 units and continue with IV hydration. Her last transfusion was in October 2016, no issues at that time. Patients pain is mostly controlled. No other complaints offered. Objective - Vital Signs/Intake and Output Vital Signs (last 24 hours): Temp Pulse Resp BP Pulse Ox 98.8 F 109 H 20 123/80 99 06/01/17 08:38 06/01/17 09:00 06/01/17 08:38 06/01/17 08:38 06/01/17 08:38 - Medications Medications: Current Medications Acetaminophen (Tylenol 325mg Tab) 650 mg PO Q6 PRN PRN Reason: Fever >100.4 F Enoxaparin Sodium (Lovenox) 40 mg SC DAILY [facility] PRN Reason: Protocol Last Admin: 06/01/17 09:45 Dose: 40 mg Folic Acid (Folic Acid) 1 mg PO DAILY [facility] Last Admin: 06/01/17 09:43 Dose: 1 mg Hydromorphone HCl (Dilaudid) 2 mg IVP Q4 PRN PRN Reason: Pain, severe (8-10) Last Admin: 06/01/17 06:07 Dose: 2 mg Hydroxyurea (Hydrea) 1,500 mg PO DAILY [facility] Last Admin: 06/01/17 09:43 Dose: 1,500 mg Sodium Chloride (Sodium Chloride 0.9%) 1,000 mls @ 150 mls/hr IV .Q6H40M [facility] Stop: 06/02/17 05:44 Last Admin: 06/01/17 09:46 Dose: 150 mls/hr Ibuprofen (Motrin Tab) 600 mg PO TID PRN PRN Reason: Pain, Mild (1-3) Last Admin: 05/29/17 16:00 Dose: 600 mg Oxycodone/Acetaminophen (Percocet 5/325 Mg Tab) 1 tab PO Q4 PRN PRN Reason: Pain, moderate (4-7) Stop: 06/01/17 12:18 Last Admin: 05/29/17 12:42 Dose: 1 tab Oxycodone/Acetaminophen (Percocet 5/325 Mg Tab) 2 tab PO Q4 PRN PRN Reason: Pain, severe (8-10) Stop: 06/01/17 16:23 Last Admin: 05/30/17 08:11 Dose: 2 tab - Labs Labs: 06/01/17 08:45 06/01/17 08:45 - Constitutional Appears: Other (uncomfortable due to pain) - Head Exam Head Exam: ATRAUMATIC, NORMAL INSPECTION, NORMOCEPHALIC - Respiratory Exam Respiratory Exam: Clear to Ausculation Bilateral, NORMAL BREATHING PATTERN. absent: Rales, Wheezes - Cardiovascular Exam Cardiovascular Exam: Tachycardia, REGULAR RHYTHM, +S1, +S2. absent: Murmur - GI/Abdominal Exam GI & Abdominal Exam: Soft, Normal Bowel Sounds. absent: Tenderness - Extremities Exam Extremities Exam: absent: Pedal Edema - Neurological Exam Neurological Exam: Alert, Awake, CN II-XII Intact, Oriented x3 - Psychiatric Exam Psychiatric exam: Normal Affect, Normal Mood - Skin Skin Exam: Pallor Assessment and Plan (1) Sickle cell crisis Assessment & Plan: 21 year old female admitted for Sickle cell crisis, Tmax 100.5 this AM. HR: 90- 100s, leukocytosis persists,.hg trending down likely secondary to IV hydration, however patient is tachycardic. Tachycardia likely multifactorial, 2' to pain and anemia fobt pain improved, c/w current pain control regimen heme/onc recommendations appreciated. c/w IVF, hydroxyurea/folic acid Transfuse 2 units transaminitis resolving on lovenox for DVT ppx Status: Acute (2) Chest pain Status: Acute (3) Knee pain Status: Acute (4) Leucocytosis Status: Acute (5) DVT prophylaxis Status: Acute (6) Abnormal liver enzymes Status: Acute
[2017-06-01 19:07] VITALS: RESP 20
[2017-06-02] MEDS: Sodium Chloride 0.9% 1,000 ML IV SCH ×2 (01:46→01:47)
--- NOTE | 2017-06-02 02:50 | CP.PCM.PN ---
Subjective - Date & Time of Evaluation Date of Evaluation: 06/01/17 Time of Evaluation: 12:00 - Subjective Subjective: Has pain, improving. Objective - Vital Signs/Intake and Output Vital Signs (last 24 hours): Temp Pulse Resp BP Pulse Ox 98 F 83 20 117/75 94 L 06/02/17 00:00 06/02/17 00:00 06/02/17 00:00 06/02/17 00:00 06/02/17 00:00 Intake and Output: 06/01/17 06/02/17 18:59 06:59 Intake Total 1570 Balance 1570 - Medications Medications: Current Medications Acetaminophen (Tylenol 325mg Tab) 650 mg PO Q6 PRN PRN Reason: Fever >100.4 F Enoxaparin Sodium (Lovenox) 40 mg SC DAILY [facility] PRN Reason: Protocol Last Admin: 06/01/17 09:45 Dose: 40 mg Folic Acid (Folic Acid) 1 mg PO DAILY [facility] Last Admin: 06/01/17 09:43 Dose: 1 mg Hydromorphone HCl (Dilaudid) 2 mg IVP Q4 PRN PRN Reason: Pain, severe (8-10) Last Admin: 06/01/17 14:25 Dose: 2 mg Hydroxyurea (Hydrea) 1,500 mg PO DAILY [facility] Last Admin: 06/01/17 09:43 Dose: 1,500 mg Sodium Chloride (Sodium Chloride 0.9%) 1,000 mls @ 150 mls/hr IV .Q6H40M [facility] Stop: 06/02/17 05:44 Last Admin: 06/02/17 01:47 Dose: 150 mls/hr Ibuprofen (Motrin Tab) 600 mg PO TID PRN PRN Reason: Pain, Mild (1-3) Last Admin: 06/02/17 01:48 Dose: 600 mg - Labs Labs: 06/01/17 08:45 06/01/17 08:45 - Head Exam Head Exam: ATRAUMATIC - Eye Exam Eye Exam: Normal appearance - ENT Exam ENT Exam: Mucous Membranes Dry - Respiratory Exam Respiratory Exam: NORMAL BREATHING PATTERN - Cardiovascular Exam Cardiovascular Exam: +S1, +S2 - GI/Abdominal Exam GI & Abdominal Exam: Normal Bowel Sounds - Extremities Exam Extremities Exam: Normal Inspection Assessment and Plan (1) Sickle cell pain crisis Assessment & Plan: IV fluids, folic acid, pain meds, 02 via MD Status: Acute (2) Sickle cell anemia Assessment & Plan: folic acid and hydroxyurea Status: Acute
[2017-06-02 08:49] VITALS: O2SAT 97
[2017-06-02] MEDS ORDERED: Oxycodone/Acetaminophen 5/325 mg Tab PO PRN (09:03)
[2017-06-02] MEDS ORDERED: Sodium Chloride 0.9% 1,000 ML IV SCH (09:15)
[2017-06-02] MEDS: Enoxaparin 40 mg Syringe SC SCH (09:16)
[2017-06-02 09:45] LABS: HEMATOCRIT 30.1 % (34.0-47.0); MEAN CORPUSCULAR HEMOGLOBIN 36.4 pg (27.0-31.0); MEAN CORPUSCULAR HGB CONC 35.2 g/dL (33.0-37.0); RED CELL DISTRIBUTION WIDTH 25.5 % (11.5-14.5); WHITE BLOOD COUNT 9.7 K/uL (4.8-10.8)
--- NOTE | 2017-06-02 09:45 | CP.PCM.PN ---
Subjective - Date & Time of Evaluation Date of Evaluation: 06/02/17 Time of Evaluation: 09:30 - Subjective Subjective: Feeling better post transfusion Objective - Vital Signs/Intake and Output Vital Signs (last 24 hours): Temp Pulse Resp BP Pulse Ox 97.6 F 68 20 112/71 97 06/02/17 08:48 06/02/17 08:48 06/02/17 08:48 06/02/17 08:48 06/02/17 08:48 - Medications Medications: Current Medications Acetaminophen (Tylenol 325mg Tab) 650 mg PO Q6 PRN PRN Reason: Fever >100.4 F Docusate Sodium (Colace) 100 mg PO DAILY [facility] PRN Reason: constipation Enoxaparin Sodium (Lovenox) 40 mg SC DAILY [facility] PRN Reason: Protocol Last Admin: 06/02/17 09:16 Dose: 40 mg Folic Acid (Folic Acid) 1 mg PO DAILY [facility] Last Admin: 06/02/17 09:14 Dose: 1 mg Hydromorphone HCl (Dilaudid) 2 mg IVP Q4 PRN PRN Reason: Pain, severe (8-10) Last Admin: 06/01/17 14:25 Dose: 2 mg Hydroxyurea (Hydrea) 1,500 mg PO DAILY [facility] Last Admin: 06/02/17 09:14 Dose: 1,500 mg Sodium Chloride (Sodium Chloride 0.9%) 1,000 mls @ 150 mls/hr IV .Q6H40M [facility] Stop: 06/03/17 09:03 Ibuprofen (Motrin Tab) 600 mg PO TID PRN PRN Reason: Pain, Mild (1-3) Last Admin: 06/02/17 01:48 Dose: 600 mg Lactulose (Enulose) 10 gm PO DAILY PRN PRN Reason: Constipation Oxycodone/Acetaminophen (Percocet 5/325 Mg Tab) 1 tab PO Q4 PRN PRN Reason: Pain, moderate (4-7) Stop: 06/05/17 09:04 - Labs Labs: 06/01/17 08:45 06/01/17 08:45 - Head Exam Head Exam: ATRAUMATIC - Eye Exam Eye Exam: Normal appearance - ENT Exam ENT Exam: Mucous Membranes Dry - Respiratory Exam Respiratory Exam: NORMAL BREATHING PATTERN - Cardiovascular Exam Cardiovascular Exam: +S1, +S2 - GI/Abdominal Exam GI & Abdominal Exam: Normal Bowel Sounds - Extremities Exam Extremities Exam: Normal Inspection Assessment and Plan (1) Sickle cell pain crisis Assessment & Plan: IV fluids, pain meds, folic acid, 02 via NC s/p PRBC transfusion Status: Acute (2) Sickle cell anemia Assessment & Plan: folic acid and hydrea Status: Acute
[2017-06-02 09:50] LABS: ALKALINE PHOSPHATASE 136 U/L (38-126); ALT/SGPT 50 U/L (9-52); AST/SGOT 50 U/L (14-36); BILIRUBIN,TOTAL 5.8 mg/dl (0.2-1.3); BLOOD UREA NITROGEN 8 mg/dl (7-17); CALCIUM 9.2 mg/dL (8.4-10.2); CARBON DIOXIDE 25 mmol/L (22-30); CHLORIDE 107 mmol/L (98-107); GFR AFRICAN-AMERICAN > 60; GLUCOSE,RANDOM 95 mg/dL (65-105); POTASSIUM 4.4 MMOL/L (3.6-5.0); SODIUM 140 mmol/l (132-148)
--- NOTE | 2017-06-02 11:12 | CP.PCM.DIS ---
Provider - Provider Date of Admission: 05/29/17 12:20 Attending physician: Jaquan Hendrickson MD Consults: Dr. Lucas: hematology/oncology Dr. Israel : pain management Time Spent in preparation of Discharge (in minutes): 35 Diagnosis - Discharge Diagnosis (1) Sickle cell crisis Status: Acute Comment: s/p transfusion with 2 units PRBCs. hg now 10.6. continue with hydroxyurea and folic acid. pain control with percocet PRN. (2) Chest pain Status: Resolved (3) Knee pain Status: Resolved (4) Leucocytosis Status: Acute (5) Abnormal liver enzymes Status: Acute Comment: stable, improving Hospital Course - Lab Results Lab Results: Most Recent Lab Values WBC 15.1 K/uL (4.8-10.8) H 06/01/17 08:45 RBC 1.98 Mil/uL (3.80-5.20) L 06/01/17 08:45 Hgb 8.0 g/dL (12.0-16.0) L 06/01/17 08:45 Hct 21.8 % (34.0-47.0) L 06/01/17 08:45 MCV 110.1 fl (81.0-99.0) H 06/01/17 08:45 MCH 40.6 pg (27.0-31.0) H 06/01/17 08:45 MCHC 36.8 g/dL (33.0-37.0) 06/01/17 08:45 RDW 20.9 % (11.5-14.5) H 06/01/17 08:45 Plt Count 348 K/uL (130-400) 06/01/17 08:45 MPV 8.5 fl (7.2-11.7) 05/28/17 22:46 Neut % (Auto) 69.0 % (50.0-75.0) 05/28/17 22:46 Lymph % (Auto) 19.3 % (20.0-40.0) L 05/28/17 22:46 [place] % (Auto) 9.8 % (0.0-10.0) 05/28/17 22:46 Eos % (Auto) 1.0 % (0.0-4.0) 05/28/17 22:46 Baso % (Auto) 0.9 % (0.0-2.0) 05/28/17 22:46 Neut # 10.9 K/uL (1.8-7.0) H 05/28/17 22:46 Lymph # 3.0 K/uL (1.0-4.3) 05/28/17 22:46 [place] # 1.5 K/uL (0.0-0.8) H 05/28/17 22:46 Eos # 0.2 K/uL (0.0-0.7) 05/28/17 22:46 Baso # 0.1 K/uL (0.0-0.2) 05/28/17 22:46 Retic Count 7.3 % (0.5-1.5) H D 05/28/17 22:46 Sodium 140 mmol/l (132-148) 06/02/17 08:45 Potassium 4.4 MMOL/L (3.6-5.0) 06/02/17 08:45 Chloride 107 mmol/L (98-107) 06/02/17 08:45 Carbon Dioxide 25 mmol/L (22-30) 06/02/17 08:45 Anion Gap 13 (10-20) 06/02/17 08:45 BUN 8 mg/dl (7-17) 06/02/17 08:45 Creatinine 0.4 mg/dL (0.7-1.2) L 06/02/17 08:45 Est GFR ( Amer) > 60 06/02/17 08:45 Est GFR (Non-Af Amer) > 60 06/02/17 08:45 Random Glucose 95 mg/dL (65-105) 06/02/17 08:45 Calcium 9.2 mg/dL (8.4-10.2) 06/02/17 08:45 Total Bilirubin 5.8 mg/dl (0.2-1.3) H 06/02/17 08:45 AST 50 U/L (14-36) H 06/02/17 08:45 ALT 50 U/L (9-52) 06/02/17 08:45 Alkaline Phosphatase 136 U/L (38-126) H 06/02/17 08:45 Troponin I < 0.0120 ng/mL (0.00-0.120) 05/29/17 14:30 Total Protein 8.0 G/DL (6.3-8.2) 06/02/17 08:45 Albumin 4.0 g/dL (3.5-5.0) 06/02/17 08:45 Globulin 4.0 gm/dL (2.2-3.9) H 06/02/17 08:45 Albumin/Globulin Ratio 1.0 (1.0-2.1) 06/02/17 08:45 Free T4 1.16 ng/dL (0.78-2.19) 05/29/17 00:44 Blood Type O POSITIVE 06/01/17 12:00 Antibody Screen Negative 06/01/17 12:00 Crossmatch See Detail 06/01/17 12:00 BBK History Checked Patient has bt 06/01/17 12:00 - Hospital Course Hospital Course: 21 year old female with hx of sickle cell disease presented with chest and knee pain. She was admitted for acute management of sickle cell crisis.She is s/p transfusion 2 units PRBCs. No longer has pain and feels better. No longer tachycardic. She will continue with hydroxyurea and folic acid. - Date & Time of H&P Date of H&P: 05/29/17 Time of H&P: 11:58 Discharge Exam - Head Exam Head Exam: ATRAUMATIC - Eye Exam Eye Exam: EOMI, Normal appearance, PERRL - Respiratory Exam Respiratory Exam: Clear to PA & Lateral - Cardiovascular Exam Cardiovascular Exam: REGULAR RHYTHM, +S1, +S2 - GI/Abdominal Exam GI & Abdominal Exam: Normal Bowel Sounds, Soft, Unremarkable. absent: Distended , Guarding, Tenderness - Rectal Exam Rectal Exam: Deferred - Neurological Exam Neurological exam: Alert, CN II-XII Intact, Normal Gait, Oriented x3 - Psychiatric Exam Psychiatric exam: Normal Affect, Normal Mood - Skin Skin Exam: Dry, Intact Discharge Plan - Discharge Medications Prescriptions: oxyCODONE/Acetaminophen [Percocet 5/325 mg Tab] 1 ea PO Q6 PRN #10 tab PRN Reason: Pain, Severe (8-10) - Follow Up Plan Condition: STABLE Disposition: HOME/ ROUTINE Patient education suggested?: Yes Instructions: Sickle Cell Crisis (DC) Additional Instructions: patient cleared for discharge to home today by and cont. current meds pt. will f/u with and outpatient Referrals: Robert Lucas MD [Staff Provider] - Jaquan Hendrickson MD [Staff Provider] -
[2017-06-02 11:16] LABS: MEAN CELL VOLUME 103.4 fl (81.0-99.0)
[2017-06-02 12:23] VITALS: BP 113/73; PULSE 76; TEMP 98.2
== END 2017-06-02 14:42 | disposition home or self-care (01) | DRG 395 ==
LOC: H.ER 21:44 → H.ERHOLD 23:27 → H.TEL 05-29 00:47 → OBSVTOIN 05-29 12:20
PROVIDERS: ADMIT Family Medicine; ATTEND Family Medicine
PROC: 30233N1 Transfusion of Nonautologous Red Blood Cells into Peripheral Vein, Percutaneous Approach (ICD-10-PCS; principal; 2017-06-01)
DX: D57.00 Hb-SS disease with crisis, unspecified (principal); D72.829 Elevated white blood cell count, unspecified; J45.909 Unspecified asthma, uncomplicated; R94.5 Abnormal results of liver function studies; L29.9 Pruritus, unspecified; Z90.49 Acquired absence of other specified parts of digestive tract; M25.569 Pain in unspecified knee; M79.605 Pain in left leg; R07.9 Chest pain, unspecified; R74.8 Abnormal levels of other serum enzymes

== ENCOUNTER 2017-08-17 11:10 | Emergency (ER) | payer MEDICAID, OTHER ==
[2017-08-17 11:19] VITALS: BMI 25.7
[2017-08-17] MEDS ORDERED: Albuterol-Ipratrop 3 mg / 0.5 (3 ml) UD INH STA (11:41)
[2017-08-17] MEDS ORDERED: Sodium Chloride 0.9% 1,000 ML IV STA ×2 (12:03)
[2017-08-17] MEDS ORDERED: Morphine 4 MG/ML VIAL ONE (13:03)
[2017-08-17] MEDS ORDERED: Morphine 4 MG/ML VIAL IV STA (13:06)
--- NOTE | 2017-08-17 13:21 | ED PDOC ---
HPI: General Adult Time Seen by Provider: 08/17/17 11:38 Chief Complaint (Nursing): Abdominal Pain Chief Complaint (Provider): Back Pain/Weakness History Per: Patient History/Exam Limitations: no limitations Onset/Duration Of Symptoms: Days (x3) Current Symptoms Are (Timing): Still Present Additional Complaint(s): Patric Fernandez is a 22 year old female with a history of asthma and sickle cell disease that presents to the ED with a chief complaint of back pain and generalized weakness that she has been experiencing for the past 3 days. Patient reports the pain is similar to her previous sickle pain. She denies any fever, chills, or vomiting. Of Note: Old charts reviewed, patient found to have been admitted in May 2017, required transfusion. Against Medical Advice - AMA Patient Left Against Medical Advice: The patient declines admission to the hospital and wishes to leave the Emergency Department. This action is against my medical advice. This decision was made with informed refusal. The patient was told that admission to the hospital is necessary. Explanation of the reasons why were discussed. The risks of leaving were explained to the patient and include, but are not limited to, worsening of known or currently unknown conditions, permanent disability and from undiagnosed or untreated conditions. The patient has the capacity to make this informed decision and understands my explanation of the current medical problem and risks of leaving. The patient voluntarily accepts these risks and signed an AMA form documenting our conversation. The patient was given the opportunity to ask questions and reconsider. The patient was encouraged to return to the Emergency Department at any time for further care. Past Medical History Reviewed: Historical Data, Nursing Documentation, Vital Signs Vital Signs: Last Vital Signs Temp 98.7 F 08/17/17 18:09 Pulse 108 H 08/17/17 18:09 Resp 18 08/17/17 18:09 BP 112/70 08/17/17 18:09 Pulse Ox 96 08/17/17 18:09 - Medical History PMH: Asthma, Sickle Cell Disease Denies: Anemia, Atrial Fibrillation, Bronchitis, CAD, Cardia Arrhythmia, CHF , COPD, Emphysema, HIV, HTN, Hypercholesterolemia, Mitral Valve Prolapse, Peripheral Edema, Pneumonia, Pulmonary Embolism, Chronic Kidney Disease, Sleep Apnea - Surgical History Surgical History: Cholecystectomy (At age 11), Tonsillectomy Denies: Pacemaker - Family History Family History: States: Unknown Family Hx - Home Medications Home Medications: Ambulatory Orders Medication Instructions Recorded Folic Acid 1 mg PO DAILY #30 01/18/17 Hydroxyurea [Hydrea] 1,500 mg PO DAILY #30 01/18/17 Ibuprofen [Motrin Tab] 400 mg PO Q6H PRN #30 tab 01/18/17 oxyCODONE/Acetaminophen [Percocet 1 ea PO BID #10 tab 06/02/17 5/325 mg Tab] oxyCODONE/Acetaminophen [Percocet 1 ea PO QID PRN #10 tab 08/17/17 5/325 mg Tab] - Allergies Allergies/Adverse Reactions: Allergies Allergy/AdvReac Type Severity Reaction Status Date / Time No Known Allergies Allergy Verified 05/28/17 22:06 Review of Systems Constitutional: Positive for: Weakness Musculoskeletal: Positive for: Back Pain Physical Exam - Reviewed Nursing Documentation Reviewed: Yes Vital Signs Reviewed: Yes - Physical Exam Appears: Positive for: Non-toxic, No Acute Distress Head Exam: Positive for: ATRAUMATIC, NORMOCEPHALIC Skin: Positive for: Normal Color, Warm Eye Exam: Positive for: EOMI, PERRL, Scleral icterus. Negative for: Normal appearance Cardiovascular/Chest: Positive for: Regular Rate, Rhythm. Negative for: Murmur Respiratory: Positive for: Normal Breath Sounds. Negative for: Wheezing Gastrointestinal/Abdominal: Positive for: Normal Exam, Soft. Negative for: Tenderness Back: Positive for: Other (lumbar TTP). Negative for: Normal Inspection Extremity: Positive for: Normal ROM. Negative for: Deformity, Swelling Neurologic/Psych: Positive for: Alert, Oriented. Negative for: Motor/Sensory Deficits - Laboratory Results Result Diagrams: 08/17/17 14:13 08/17/17 14:13 - ECG O2 Sat by Pulse Oximetry: 96 (RA) Pulse Ox Interpretation: Normal Medical Decision Making Medical Decision Making: Impression: Sickle Cell Disease Plan: * Chest X-Ray * EKG * CMP * CBC * Type and Screen * Troponin I * Reticulocyte Count * Urinalysis * Toradol 15 mg IV * Morphine 2 mg IV * NaCl 1000 mLs at 1000 mLs/hr * Reevaluation labs reviewed Hgb improved since prior visit but retic count was elevated Patient recd 2L NS and analgesia w improvement Given elev retic count, concern for acute sickle crisis Admission for further IVF and r/o infection was recommended but patient refused , said she wanted to go home. Explained risks and benefits, was AAOx3 and signed AMA. Scribe Attestation: Documented by Pat Freitas, acting as a scribe for Bear Nicolas III, DO. Provider Scribe Attestation: All medical record entries made by the Scribe were at my direction and personally dictated by me. I have reviewed the chart and agree that the record accurately reflects my personal performance of the history, physical exam, medical decision making, and the department course for this patient. I have also personally directed, reviewed, and agree with the discharge instructions and disposition Disposition - Clinical Impression Clinical Impression: Sickle cell crisis - Patient ED Disposition Is Patient to be Admitted: No Counseled Patient/Family Regarding: Studies Performed, Diagnosis, Need For Followup, Rx Given - Disposition Referrals: Alethea Gallagher MD [Staff Provider] - Disposition: Against Medical Advice Disposition Time: 17:30 Condition: STABLE Additional Instructions: Return to ER for any worsening symptoms. You left hospital against medical advice, please return at any time for completion of treatment. Prescriptions: oxyCODONE/Acetaminophen [Percocet 5/325 mg Tab] 1 ea PO QID PRN #10 tab PRN Reason: Pain, Severe (8-10) Instructions: Sickle Cell Crisis (ED), Against Medical Advice (ED) Forms: [employer] (Yoruba)
[2017-08-17 14:30] LABS: RBC URINE 1 /hpf (0-3); URINE BACTERIA RARE (<OCC); URINE BILIRUBIN NEGATIVE (NEGATIVE); URINE BLOOD NEGATIVE (NEGATIVE); URINE COLOR YELLOW (YELLOW); URINE GLUCOSE (UA) NEG (Normal); URINE KETONE NEGATIVE (NEGATIVE); URINE LEUKOCYTE ESTERASE NEG Leu/uL (Negative); URINE PROTEIN NEGATIVE (NEGATIVE); WBC URINE 1 /hpf (0-5)
[2017-08-17 14:33] LABS: BASO # 0.1 K/uL (0.0-0.2); BASO % 1.3 % (0.0-2.0); EOS # 0.1 K/uL (0.0-0.7); HEMATOCRIT 27.2 % (34.0-47.0); LYMPH # 2.8 K/uL (1.0-4.3); LYMPH % 25.9 % (20.0-40.0); MEAN CORPUSCULAR HEMOGLOBIN 38.8 pg (27.0-31.0); MEAN CORPUSCULAR HGB CONC 36.6 g/dL (33.0-37.0); MEAN PLATELET VOLUME 8.3 fl (7.2-11.7); MONO # 1.2 K/uL (0.0-0.8); MONO % 10.9 % (0.0-10.0); NEUT # 6.6 K/uL (1.8-7.0); NEUT % 60.9 % (50.0-75.0); NRBC % 6.7 % (0.0-0.0); RED CELL DISTRIBUTION WIDTH 26.7 % (11.5-14.5); WHITE BLOOD COUNT 10.8 K/uL (4.8-10.8)
[2017-08-17 14:43] LABS: ALKALINE PHOSPHATASE 105 U/L (38-126); ALT/SGPT 59 U/L (9-52); AST/SGOT 61 U/L (14-36); BILIRUBIN,TOTAL 5.2 mg/dl (0.2-1.3); BLOOD UREA NITROGEN 8 mg/dl (7-17); CALCIUM 9.3 mg/dL (8.4-10.2); CARBON DIOXIDE 25 mmol/L (22-30); CHLORIDE 106 mmol/L (98-107); GFR AFRICAN-AMERICAN > 60; GLUCOSE,RANDOM 87 mg/dL (65-105); POTASSIUM 4.2 MMOL/L (3.6-5.0); SODIUM 141 mmol/l (132-148); TOTAL PROTEIN 8.5 G/DL (6.3-8.2)
[2017-08-17 14:52] LABS: ALB/GLOB RATIO 1.1 (1.0-2.1)
[2017-08-17 15:07] VITALS: RESP 18
[2017-08-17 18:10] VITALS: BP 112/70; PULSE 108; TEMP 98.7; O2SAT 96
--- NOTE | 2017-08-18 11:01 | CARD ---
APPROVED REPORT EKG Measurement Heart [id number] <Conclusion> Normal sinus rhythm Voltage criteria for left ventricular hypertrophy Abnormal ECG
== END 2017-08-17 18:14 | disposition left against medical advice (07) ==
LOC: H.ER 11:10
DX: D57.219 Sickle-cell/Hb-C disease with crisis, unspecified (principal); J45.909 Unspecified asthma, uncomplicated
CPT/HCPCS: 80053; 81003; 81025; 84484; 85025; 85044; 93005; 96374; 99284; J1885; J2270; J7040

== ENCOUNTER 2017-08-21 16:37 | Inpatient (IN) | payer SELFPAY ==
[2017-08-21 16:37] VITALS: BMI 25.7
[2017-08-21] MEDS ORDERED: Sodium Chloride 0.9% 1,000 ML IV STA ×2 (17:45→19:25)
[2017-08-21] MEDS ORDERED: Iohexol 240 (50 ml) PO ONE (17:45)
[2017-08-21] MEDS ORDERED: Morphine 4 MG/ML VIAL IVP STA (17:45)
[2017-08-21 18:39] LABS: VENOUS BLOOD GAS BASE EXCESS 2.2 mmol/L (0.0-2.0); VENOUS BLOOD GAS PCO2 43 mmHg (40-60); VENOUS BLOOD PH 7.41 (7.32-7.43)
[2017-08-21] MEDS ORDERED: Morphine 4 MG/ML VIAL ONE (18:39)
[2017-08-21] MEDS ORDERED: Iohexol 240 (50 ml) ONE (18:39)
[2017-08-21 18:52] LABS: BASO # 0.1 K/uL (0.0-0.2); EOS # 0.1 K/uL (0.0-0.7); EOS % 0.8 % (0.0-4.0); HEMATOCRIT 25.7 % (34.0-47.0); LYMPH % 31.2 % (20.0-40.0); MEAN CELL VOLUME 106.4 fl (81.0-99.0); MEAN CORPUSCULAR HEMOGLOBIN 38.9 pg (27.0-31.0); MEAN CORPUSCULAR HGB CONC 36.6 g/dL (33.0-37.0); MEAN PLATELET VOLUME 7.9 fl (7.2-11.7); MONO # 1.5 K/uL (0.0-0.8); MONO % 11.4 % (0.0-10.0); NEUT # 7.1 K/uL (1.8-7.0); NEUT % 55.6 % (50.0-75.0); NRBC % 0.7 % (0.0-0.0); PLATELET COUNT 536 K/uL (130-400); RED CELL DISTRIBUTION WIDTH 23.6 % (11.5-14.5); WHITE BLOOD COUNT 12.8 K/uL (4.8-10.8)
--- NOTE | 2017-08-21 18:55 | ED PDOC ---
HPI: General Adult Time Seen by Provider: 08/21/17 16:53 Chief Complaint (Nursing): Shortness Of Breath History Per: Patient Additional Complaint(s): Pt. states for the past 2 days she's had LUQ abdominal pain which is non- radiating. States today she developed fever. Of note, pt. was seen in ED on Tuesday as she was having back pain and was told she required admission as she was going through a sickle cell crisis but pt. signed out AMA. States that pain resolved. Denies chest pain, cough, congestion, N/V/D, sore throat, trauma , hematuria, dysuria. Past Medical History Reviewed: Historical Data, Nursing Documentation, Vital Signs Vital Signs: Last Vital Signs Temp 99.3 F 08/21/17 20:10 Pulse 120 H 08/21/17 16:48 Resp 16 08/21/17 17:00 BP 135/72 08/21/17 16:48 Pulse Ox 99 08/21/17 19:01 - Medical History PMH: Asthma, Sickle Cell Disease Denies: Anemia, Atrial Fibrillation, Bronchitis, CAD, Cardia Arrhythmia, CHF , COPD, Emphysema, HIV, HTN, Hypercholesterolemia, Mitral Valve Prolapse, Peripheral Edema, Pneumonia, Pulmonary Embolism, Chronic Kidney Disease, Sleep Apnea - Surgical History Surgical History: Cholecystectomy (At age 11), Tonsillectomy Denies: Pacemaker - Family History Family History: States: Unknown Family Hx - Home Medications Home Medications: Ambulatory Orders Medication Instructions Recorded Folic Acid 1 mg PO DAILY #30 01/18/17 Hydroxyurea [Hydrea] 1,500 mg PO DAILY #30 01/18/17 Ibuprofen [Motrin Tab] 400 mg PO Q6H PRN #30 tab 01/18/17 oxyCODONE/Acetaminophen [Percocet 1 ea PO BID #10 tab 06/02/17 5/325 mg Tab] oxyCODONE/Acetaminophen [Percocet 1 ea PO QID PRN #10 tab 08/17/17 5/325 mg Tab] - Allergies Allergies/Adverse Reactions: Allergies Allergy/AdvReac Type Severity Reaction Status Date / Time No Known Allergies Allergy Verified 05/28/17 22:06 Review of Systems ROS Statement: Except As Marked, All Systems Reviewed And Found Negative Constitutional: Positive for: Fever Gastrointestinal: Positive for: Abdominal Pain Physical Exam - Reviewed Nursing Documentation Reviewed: Yes Vital Signs Reviewed: Yes - Physical Exam Appears: Positive for: Well, Non-toxic, No Acute Distress Head Exam: Positive for: ATRAUMATIC, NORMAL INSPECTION, NORMOCEPHALIC Skin: Positive for: Normal Color, Warm. Negative for: Rash Eye Exam: Positive for: EOMI, Normal appearance, PERRL ENT: Positive for: Normal ENT Inspection Neck: Positive for: Normal, Painless ROM Cardiovascular/Chest: Positive for: Regular Rate, Rhythm Respiratory: Positive for: CNT, Normal Breath Sounds Gastrointestinal/Abdominal: Positive for: Normal Exam, Bowel Sounds, Soft. Negative for: Tenderness, Organomegaly Back: Positive for: Normal Inspection Extremity: Positive for: Normal ROM Neurologic/Psych: Positive for: Alert, Oriented. Negative for: Aphasia, Facial Droop - Laboratory Results Result Diagrams: 08/21/17 18:40 08/21/17 18:40 - ECG O2 Sat by Pulse Oximetry: 99 - Progress ED Course And Treament: Labs ordered. CT abd/pelvis w/ PO and IV contrast ordered. Morphine 4mg IV, zofran 4mg IV ordered. IV NS bolus x 1 ordered. Disposition - Clinical Impression Clinical Impression: Fever, Sickle cell anemia with pain, Abdominal pain - Patient ED Disposition Is Patient to be Admitted: Transfer of Care (Signed out to Huan COX pending final disposition and CT results.) - Disposition Disposition Time: 20:00 Condition: STABLE Forms: [employer] (Latvian)
[2017-08-21 19:01] LABS: PARTIAL THROMBOPLASTIN TIME 29.7 Seconds (25.6-37.1); SODIUM 140 mmol/l (132-148)
[2017-08-21 19:02] LABS: RBC URINE 2 /hpf (0-3); URINE BACTERIA FEW (<OCC); URINE BILIRUBIN NEGATIVE (NEGATIVE); URINE BLOOD NEGATIVE (NEGATIVE); URINE COLOR YELLOW (YELLOW); URINE GLUCOSE (UA) NEG (Normal); URINE KETONE NEGATIVE (NEGATIVE); URINE LEUKOCYTE ESTERASE NEG Leu/uL (Negative); URINE PROTEIN 100 mg/dL (NEGATIVE); WBC URINE 3 /hpf (0-5)
[2017-08-21 19:02] LABS: ALKALINE PHOSPHATASE 167 U/L (38-126); ALT/SGPT 93 U/L (9-52); AST/SGOT 90 U/L (14-36); BILIRUBIN,TOTAL 4.9 mg/dl (0.2-1.3); BLOOD UREA NITROGEN 6 mg/dl (7-17); CALCIUM 9.5 mg/dL (8.4-10.2); CARBON DIOXIDE 27 mmol/L (22-30); CHLORIDE 102 mmol/L (98-107); GFR AFRICAN-AMERICAN > 60; GLUCOSE,RANDOM 103 mg/dL (65-105); TOTAL PROTEIN 9.3 G/DL (6.3-8.2)
[2017-08-21 19:05] LABS: POTASSIUM 4.6 MMOL/L (3.6-5.0)
[2017-08-21 19:50] LABS: EOSINOPHIL 2 % (0-7); NEUTROPHIL 52 % (42-75); NUCLEATED RED BLOOD CELL 1 % (0-0); TOTAL CELLS COUNTED 100
[2017-08-21 20:03] LABS: GIANT PLATELETS PRESENT; LARGE PLATELETS PRESENT; SPHEROCYTES SLIGHT
--- NOTE | 2017-08-21 21:05 | ED PDOC ---
- Laboratory Results Result Diagrams: 08/21/17 18:40 08/21/17 18:40 - ECG O2 Sat by Pulse Oximetry: 99 Medical Decision Making Medical Decision Making: Case endorsed to caption writer from KENNY Lees [place] [address] scan review and re-eval WBC 12.4 Hgb 9.4 Retic 9.1 Lactate 0[address] IMPRESSION: 1. Mild bibasilar peripheral airspace disease. DDX: Atelectasis/scarring, pneumonia, or infarcts. 2. Incidental/non-acute findings are described above. Case discussed with hospitalist, Dr. Ortiz, who presented to see and evaluate Pt at bedside. Arrangements made for admission Disposition - Clinical Impression Clinical Impression: Fever, Sickle cell anemia with pain, Abdominal pain - POA Present On Arrival: None - Disposition Disposition: Admitted as In-Patient Disposition Time: 00:18 Condition: STABLE Forms: [employer] (S[place])
[2017-08-21] MEDS ORDERED: Iohexol 300 100 ML IJ ONE (21:29)
[2017-08-21] MEDS ORDERED: Sodium Chloride 0.9% 50 ML IV ONE (21:29)
--- NOTE | 2017-08-21 22:28 | CT ---
EXAM: CT Abdomen and Pelvis With Intravenous Contrast CLINICAL HISTORY: 22 years old, female; Pain; Abdominal pain; Localized; Left; Prior surgery; Surgery type: Cholecystectomy around 12 yrs in [place]; Patient HX: HX pneumonia; Additional info: Luq pain, fever, HX of sickle cell TECHNIQUE: Axial computed tomography images of the abdomen and pelvis with intravenous contrast. All CT scans at this facility use one or more dose reduction techniques, viz.: automated exposure control; ma/kV adjustment per patient size (including targeted exams where dose is matched to indication; i.e. head); or iterative reconstruction technique. Coronal and sagittal reformatted images were created and reviewed. CONTRAST: 80 mL of OMNIPAQUE administered intravenously. COMPARISON: No relevant prior studies available. FINDINGS: Lower thorax: Mild cardiomegaly. Trace LEFT pleural effusion. Mild patchy peripheral airspace disease within lung bases. ABDOMEN: Liver: Unremarkable. No mass. Gallbladder and bile ducts: Cholecystectomy. No ductal dilation. Pancreas: No ductal dilation. No mass. Spleen: Diminutive, calcified spleen. Adrenals: No mass. Kidneys and ureters: No mass. No hydronephrosis. Stomach and bowel: No definite mural thickening. No obstruction. Appendix: No definite findings to suggest acute appendicitis. PELVIS: Bladder: Unremarkable. Reproductive: Unremarkable as visualized. ABDOMEN and PELVIS: Intraperitoneal space: No significant fluid collection. No free air. Bones/joints: Mild patchy sclerosis of lumbar vertebral bodies. No acute fracture. Soft tissues: Unremarkable. Vasculature: Unremarkable. No aneurysm. Lymph nodes: No pathologically enlarged lymph nodes. IMPRESSION: 1. Mild bibasilar peripheral airspace disease. DDX: Atelectasis/scarring, pneumonia, or infarcts. 2. Incidental/non-acute findings are described above.
[2017-08-22] MEDS ORDERED: Morphine 4 MG/ML VIAL IVP PRN (00:20)
[2017-08-22] MEDS ORDERED: Azithromycin 500 MG in Sodium Chloride 0.9% 250 ML IVPB STA (00:22)
[2017-08-22] MEDS ORDERED: Albuterol-Ipratrop 3 mg / 0.5 (3 ml) UD INH PRN (00:23)
[2017-08-22] MEDS ORDERED: cefTRIAXone IV 1 gm in Dextros 50 ML IVPB ONE (00:48)
[2017-08-22] MEDS ORDERED: Morphine 4 MG/ML VIAL ONE (00:56)
[2017-08-22] MEDS ORDERED: cefTRIAXone IV 1 gm in Dextros 50 ML IVPB STA (01:00)
[2017-08-22] MEDS: Sodium Chloride 0.9% 1,000 ML IV SCH ×2 (01:06→10:35)
--- NOTE | 2017-08-22 01:09 | CP.PCM.HP ---
History of Present Illness - History of Present Illness History of Present Illness: CC: SS crisis HPI: This is a 22 y/o female with SSA who has worsening LUQ abd, L rib pain for the past two days. She also developed a fever > 100. She was here with back pain Tuesday and was to be admitted, but left AMA. The back pain has since resolved, now it is only the LUQ and L rib pain. Denies cough, n/v/d. No other complaints as of now. Nothing makes her current symptoms better or worse. ROS: 14 systems reviewed, negative other than HPI MHx: SSA SHx: GB Allergies: NKDA Medications: As per med rec Family Hx: DM2 runs in family, no other relevant findings Social Hx: Lives with family, no tobacco, no EtOH Present on Admission - Present on Admission Any Indicators Present on Admission: No Past Patient History - Past Medical History & Family History Past Medical History?: Yes - Past Social History Smoking Status: Never Smoked - CARDIAC Hx Atrial Fibrillation: No Hx Cardia Arrhythmia: No Hx Congestive Heart Failure: No Hx Hypercholesterolemia: No Hx Hypertension: No Hx Mitral Valve Prolapse: No Hx Pacemaker: No Hx Peripheral Edema: No - PULMONARY Hx Asthma: Yes Hx Bronchitis: No Hx Chronic Obstructive Pulmonary Disease (COPD): No Hx Emphysema: No Hx Pneumonia: No Hx Pulmonary Embolism: No Hx Sleep Apnea: No - NEUROLOGICAL Hx Neurological Disorder: No - HEENT Hx HEENT Problems: No - RENAL Hx Chronic Kidney Disease: No - ENDOCRINE/METABOLIC Hx Endocrine Disorders: No - HEMATOLOGICAL/ONCOLOGICAL Hx Anemia: No Hx Human Immunodeficiency Virus (HIV): No Hx Sickle Cell Disease: Yes - INTEGUMENTARY Hx Dermatological Problems: No - MUSCULOSKELETAL/RHEUMATOLOGICAL Hx Musculoskeletal Disorders: No Hx Falls: No - GASTROINTESTINAL Hx Gastrointestinal Disorders: No - GENITOURINARY/GYNECOLOGICAL Hx Genitourinary Disorders: No - PSYCHIATRIC Hx Psychophysiologic Disorder: No Hx Substance Use: No - SURGICAL HISTORY Hx Cholecystectomy: Yes (At age 11) Hx Tonsillectomy: Yes - ANESTHESIA Hx Anesthesia: Yes Hx Anesthesia Reactions: No Hx Malignant Hyperthermia: No Meds Allergies/Adverse Reactions: Allergies Allergy/AdvReac Type Severity Reaction Status Date / Time No Known Allergies Allergy Verified 05/28/17 22:06 Physical Exam - Constitutional Appears: No Acute Distress - Head Exam Head Exam: ATRAUMATIC, NORMOCEPHALIC - Eye Exam Eye Exam: EOMI, PERRL - ENT Exam ENT Exam: Mucous Membranes Moist - Neck Exam Neck exam: Positive for: Full Rom - Respiratory Exam Respiratory Exam: Clear to Auscultation Bilateral, NORMAL BREATHING PATTERN - Cardiovascular Exam Cardiovascular Exam: REGULAR RHYTHM, +S1, +S2 - GI/Abdominal Exam GI & Abdominal Exam: Normal Bowel Sounds, Soft - Neurological Exam Neurological exam: Alert, CN II-XII Intact, Oriented x3 - Psychiatric Exam Psychiatric exam: Normal Affect, Normal Mood - Skin Skin Exam: Dry, Warm Results - Vital Signs Recent Vital Signs: Last Vital Signs Temp 98.3 F 08/22/17 00:52 Pulse 95 H 08/22/17 00:52 Resp 16 08/22/17 00:52 BP 100/53 L 08/22/17 00:52 Pulse Ox 94 L 08/22/17 00:52 - Labs Result Diagrams: 08/21/17 18:40 08/21/17 18:40 Labs: Laboratory Results - last 24 hr 08/21/17 08/21/17 08/21/17 18:34 18:40 18:40 WBC 12.8 H RBC 2.41 L Hgb 9.4 L Hct 25.7 L MCV 106.4 H MCH 38.9 H MCHC 36.6 RDW 23.6 H Plt Count 536 H MPV 7.9 Neut % (Auto) 55.6 Lymph % (Auto) 31.2 [place] % (Auto) 11.4 H Eos % (Auto) 0.8 Baso % (Auto) 1.0 Neut # 7.1 H Lymph # 4.0 [place] # 1.5 H Eos # 0.1 Baso # 0.1 Neutrophils % (Manual) 52 Band Neutrophils % 1 Lymphocytes % (Manual) 42 Monocytes % (Manual) 3 Eosinophils % (Manual) 2 Nucleated RBC % 1 H Platelet Estimate Slightly increased H Large Platelets Present Giant Platelets Present Hypochromasia (manual) Slight Poikilocytosis (manual Moderate Anisocytosis (manual) Moderate Microcytosis (manual) Slight Macrocytosis (manual) Slight Spherocytes Slight Sickle Cells Slight Target Cells Slight Ovalocytes Moderate Retic Count PT INR APTT pO2 44 VBG pH 7.41 VBG pCO2 43 VBG HCO3 26.2 VBG Total CO2 28.6 H VBG O2 Sat (Calc) 77.6 H VBG Base Excess 2.2 H VBG Potassium 4.8 Sodium 137.0 140 Chloride 104.0 102 Glucose 102 Lactate 0.9 FiO2 21.0 Potassium 4.6 Carbon Dioxide 27 Anion Gap 16 BUN 6 L Creatinine 0.4 L Est GFR ( Amer) > 60 Est GFR (Non-Af Amer) > 60 Random Glucose 103 Calcium 9.5 Total Bilirubin 4.9 H AST 90 H D ALT 93 H D Alkaline Phosphatase 167 H D Total Protein 9.3 H Albumin 4.8 Globulin 4.6 H Albumin/Globulin Ratio 1.0 Venous Blood Potassium 4.8 Urine Color Urine Clarity Urine pH Ur Specific [place] Urine Protein Urine Glucose (UA) Urine Ketones Urine Blood Urine Nitrate Urine Bilirubin Urine Urobilinogen Ur Leukocyte Esterase Urine RBC (Auto) Urine Microscopic WBC Ur Squamous Epith Cells Urine Bacteria 08/21/17 08/21/17 08/21/17 18:40 18:44 19:00 WBC RBC Hgb Hct MCV MCH MCHC RDW Plt Count MPV Neut % (Auto) Lymph % (Auto) [place] % (Auto) Eos % (Auto) Baso % (Auto) Neut # Lymph # [place] # Eos # Baso # Neutrophils % (Manual) Band Neutrophils % Lymphocytes % (Manual) Monocytes % (Manual) Eosinophils % (Manual) Nucleated RBC % Platelet Estimate Large Platelets Giant Platelets Hypochromasia (manual) Poikilocytosis (manual Anisocytosis (manual) Microcytosis (manual) Macrocytosis (manual) Spherocytes Sickle Cells Target Cells Ovalocytes Retic Count 9.1 H PT 13.6 H INR 1.2 APTT 29.7 pO2 VBG pH VBG pCO2 VBG HCO3 VBG Total CO2 VBG O2 Sat (Calc) VBG Base Excess VBG Potassium Sodium Chloride Glucose Lactate FiO2 Potassium Carbon Dioxide Anion Gap BUN Creatinine Est GFR ( Amer) Est GFR (Non-Af Amer) Random Glucose Calcium Total Bilirubin AST ALT Alkaline Phosphatase Total Protein Albumin Globulin Albumin/Globulin Ratio Venous Blood Potassium Urine Color Yellow Urine Clarity Slighty-cloudy Urine pH 7.0 Ur Specific [place] 1.012 Urine Protein 100 Urine Glucose (UA) Neg Urine Ketones Negative Urine Blood Negative Urine Nitrate Negative Urine Bilirubin Negative Urine Urobilinogen 4.0 H Ur Leukocyte Esterase Neg Urine RBC (Auto) 2 Urine Microscopic WBC 3 Ur Squamous Epith Cells 6 H Urine Bacteria Few H - Imaging and Cardiology CT scan - abdomen Status: Image reviewed by me (CT IMPRESSION:), Report reviewed by me Assessment & Plan (1) Sickle cell crisis Assessment and Plan: 22 y/o female with SSC also with fever and ? of airspace disease. -Admit to med surg -Pain control with morphine as per scale -NS 150 cc/hr -Will start coverage with Ceft/Azith IV for ?airspace disease to avoid progression to acute chest -Tylenol for fever -SQ Lovenox for DVT PPx Status: Acute (2) CAP (community acquired pneumonia) Status: Acute (3) Fever Status: Acute (4) DVT prophylaxis Status: Acute
[2017-08-22 06:41] LABS: HEMATOCRIT 23.1 % (34.0-47.0); MEAN CELL VOLUME 109.6 fl (81.0-99.0); MEAN CORPUSCULAR HEMOGLOBIN 38.5 pg (27.0-31.0); MEAN CORPUSCULAR HGB CONC 35.1 g/dL (33.0-37.0); MEAN PLATELET VOLUME 7.7 fl (7.2-11.7); RED CELL DISTRIBUTION WIDTH 23.2 % (11.5-14.5); WHITE BLOOD COUNT 11.3 K/uL (4.8-10.8)
--- NOTE | 2017-08-22 07:06 | CARD ---
APPROVED REPORT EKG Measurement Heart [id number] <Conclusion> Sinus tachycardia Possible Left atrial enlargement Borderline ECG
[2017-08-22 07:29] LABS: BLOOD UREA NITROGEN 4 mg/dl (7-17); CARBON DIOXIDE 24 mmol/L (22-30); CHLORIDE 108 mmol/L (98-107); GFR AFRICAN-AMERICAN > 60; GLUCOSE,RANDOM 100 mg/dL (65-105); POTASSIUM 4.4 MMOL/L (3.6-5.0); SODIUM 140 mmol/l (132-148)
[2017-08-22] MEDS ORDERED: Influenza Vaccine 18yr & older 0.5 ML/45 MCG SYR IM ONE (09:00)
[2017-08-22] MEDS: Enoxaparin 40 mg Syringe SC SCH (10:28)
[2017-08-22] MEDS: Azithromycin 500 MG in Sodium Chloride 0.9% 250 ML IVPB SCH (11:51)
[2017-08-23 00:28] VITALS: RESP 20
[2017-08-23 06:28] LABS: MEAN CORPUSCULAR HEMOGLOBIN 39.3 pg (27.0-31.0); MEAN CORPUSCULAR HGB CONC 36.1 g/dL (33.0-37.0); RED CELL DISTRIBUTION WIDTH 24.9 % (11.5-14.5); WHITE BLOOD COUNT 10.1 K/uL (4.8-10.8)
[2017-08-23 06:45] LABS: BLOOD UREA NITROGEN 6 mg/dl (7-17); CALCIUM 8.9 mg/dL (8.4-10.2); CARBON DIOXIDE 27 mmol/L (22-30); CHLORIDE 105 mmol/L (98-107); GFR AFRICAN-AMERICAN > 60; GLUCOSE,RANDOM 104 mg/dL (65-105); POTASSIUM 4.3 MMOL/L (3.6-5.0); SODIUM 139 mmol/l (132-148)
[2017-08-23 08:02] VITALS: BP 94/56; PULSE 69; TEMP 98.1; O2SAT 97
[2017-08-23] MEDS: Azithromycin 500 MG in Sodium Chloride 0.9% 250 ML IVPB SCH (09:57)
[2017-08-23] MEDS: Enoxaparin 40 mg Syringe SC SCH (09:57)
--- NOTE | 2017-08-23 11:52 | CP.PCM.DIS ---
Provider - Provider Date of Admission: 08/22/17 00:25 Attending physician: Timur Ortiz MD Primary care physician: None Time Spent in preparation of Discharge (in minutes): 15 Hospital Course - Lab Results Lab Results: Micro Results 08/21/17 18:50 Blood-Venous Blood Culture - Preliminary NO GROWTH AFTER 24 HOURS 08/21/17 18:52 Blood-Venous Blood Culture - Preliminary NO GROWTH AFTER 24 HOURS Most Recent Lab Values WBC 10.1 K/uL (4.8-10.8) 08/23/17 05:55 RBC 2.11 Mil/uL (3.80-5.20) L 08/23/17 05:55 Hgb 8.3 g/dL (12.0-16.0) L 08/23/17 05:55 Hct 23.0 % (34.0-47.0) L 08/23/17 05:55 MCV 109.0 fl (81.0-99.0) H 08/23/17 05:55 MCH 39.3 pg (27.0-31.0) H 08/23/17 05:55 MCHC 36.1 g/dL (33.0-37.0) 08/23/17 05:55 RDW 24.9 % (11.5-14.5) H 08/23/17 05:55 Plt Count 490 K/uL (130-400) H 08/23/17 05:55 MPV 7.7 fl (7.2-11.7) 08/22/17 06:05 Neut % (Auto) 55.6 % (50.0-75.0) 08/21/17 18:40 Lymph % (Auto) 31.2 % (20.0-40.0) 08/21/17 18:40 [place] % (Auto) 11.4 % (0.0-10.0) H 08/21/17 18:40 Eos % (Auto) 0.8 % (0.0-4.0) 08/21/17 18:40 Baso % (Auto) 1.0 % (0.0-2.0) 08/21/17 18:40 Neut # 7.1 K/uL (1.8-7.0) H 08/21/17 18:40 Lymph # 4.0 K/uL (1.0-4.3) 08/21/17 18:40 [place] # 1.5 K/uL (0.0-0.8) H 08/21/17 18:40 Eos # 0.1 K/uL (0.0-0.7) 08/21/17 18:40 Baso # 0.1 K/uL (0.0-0.2) 08/21/17 18:40 Neutrophils % (Manual) 52 % (42-75) 08/21/17 18:40 Band Neutrophils % 1 % (0-2) 08/21/17 18:40 Lymphocytes % (Manual) 42 % (20-50) 08/21/17 18:40 Monocytes % (Manual) 3 % (0-10) 08/21/17 18:40 Eosinophils % (Manual) 2 % (0-7) 08/21/17 18:40 Nucleated RBC % 1 % (0-0) H 08/21/17 18:40 Platelet Estimate Slightly increased (NORMAL) H 08/21/17 18:40 Large Platelets Present 08/21/17 18:40 Giant Platelets Present 08/21/17 18:40 Hypochromasia (manual) Slight 08/21/17 18:40 Poikilocytosis (manual Moderate 08/21/17 18:40 Anisocytosis (manual) Moderate 08/21/17 18:40 Microcytosis (manual) Slight 08/21/17 18:40 Macrocytosis (manual) Slight 08/21/17 18:40 Spherocytes Slight 08/21/17 18:40 Sickle Cells Slight 08/21/17 18:40 Target Cells Slight 08/21/17 18:40 Ovalocytes Moderate 08/21/17 18:40 Retic Count 9.1 % (0.5-1.5) H 08/21/17 19:00 PT 13.6 Seconds (9.8-13.1) H 08/21/17 18:40 INR 1.2 (0.9-1.2) 08/21/17 18:40 APTT 29.7 Seconds (25.6-37.1) 08/21/17 18:40 pO2 44 mm/Hg (30-55) 08/21/17 18:34 VBG pH 7.41 (7.32-7.43) 08/21/17 18:34 VBG pCO2 43 mmHg (40-60) 08/21/17 18:34 VBG HCO3 26.2 mmol/L 08/21/17 18:34 VBG Total CO2 28.6 mmol/L (22-28) H 08/21/17 18:34 VBG O2 Sat (Calc) 77.6 % (40-65) H 08/21/17 18:34 VBG Base Excess 2.2 mmol/L (0.0-2.0) H 08/21/17 18:34 VBG Potassium 4.8 mmol/L (3.6-5.2) 08/21/17 18:34 Sodium 137.0 mmol/L (132-148) 08/21/17 18:34 Chloride 104.0 mmol/L (98-107) 08/21/17 18:34 Glucose 102 mg/dL (65-105) 08/21/17 18:34 Lactate 0.9 mmol/L (0.7-2.1) 08/21/17 18:34 FiO2 21.0 % 08/21/17 18:34 Sodium 139 mmol/l (132-148) 08/23/17 05:55 Potassium 4.3 MMOL/L (3.6-5.0) 08/23/17 05:55 Chloride 105 mmol/L (98-107) 08/23/17 05:55 Carbon Dioxide 27 mmol/L (22-30) 08/23/17 05:55 Anion Gap 11 (10-20) 08/23/17 05:55 BUN 6 mg/dl (7-17) L 08/23/17 05:55 Creatinine 0.4 mg/dl (0.7-1.2) L 08/23/17 05:55 Est GFR ( Amer) > 60 08/23/17 05:55 Est GFR (Non-Af Amer) > 60 08/23/17 05:55 Random Glucose 104 mg/dL (65-105) 08/23/17 05:55 Calcium 8.9 mg/dL (8.4-10.2) 08/23/17 05:55 Total Bilirubin 4.9 mg/dl (0.2-1.3) H 08/21/17 18:40 AST 90 U/L (14-36) H D 08/21/17 18:40 ALT 93 U/L (9-52) H D 08/21/17 18:40 Alkaline Phosphatase 167 U/L (38-126) H D 08/21/17 18:40 Total Protein 9.3 G/DL (6.3-8.2) H 08/21/17 18:40 Albumin 4.8 g/dL (3.5-5.0) 08/21/17 18:40 Globulin 4.6 gm/dL (2.2-3.9) H 08/21/17 18:40 Albumin/Globulin Ratio 1.0 (1.0-2.1) 08/21/17 18:40 Venous Blood Potassium 4.8 mmol/L (3.6-5.2) 08/21/17 18:34 Urine Color Yellow (YELLOW) 08/21/17 18:44 Urine Clarity Slighty-cloudy (Clear) 08/21/17 18:44 Urine pH 7.0 (5.0-8.0) 08/21/17 18:44 Ur Specific [place] 1.012 (1.003-1.030) 08/21/17 18:44 Urine Protein 100 mg/dL (NEGATIVE) 08/21/17 18:44 Urine Glucose (UA) Neg mg/dL (Normal) 08/21/17 18:44 Urine Ketones Negative mg/dL (NEGATIVE) 08/21/17 18:44 Urine Blood Negative (NEGATIVE) 08/21/17 18:44 Urine Nitrate Negative (NEGATIVE) 08/21/17 18:44 Urine Bilirubin Negative (NEGATIVE) 08/21/17 18:44 Urine Urobilinogen 4.0 mg/dL (0.2-1.0) H 08/21/17 18:44 Ur Leukocyte Esterase Neg [place]/uL (Negative) 08/21/17 18:44 Urine RBC (Auto) 2 /hpf (0-3) 08/21/17 18:44 Urine Microscopic WBC 3 /hpf (0-5) 08/21/17 18:44 Ur Squamous Epith Cells 6 /hpf (0-5) H 08/21/17 18:44 Urine Bacteria Few (<OCC) H 08/21/17 18:44 - Hospital Course Hospital Course: 22 y/o female with SSA presented with worsening LUQ abd, L rib pain for the past two days. She also developed a fever 101 WBc was 12 K . She was here with back pain Tuesday and was to be admitted, but left AMA. The back pain has since resolved, now it is only the LUQ and L rib pain. Denies cough, n/v/d. No other complaints as of now. Nothing makes her current symptoms better or worse. Ct chest showed bilateral atelectasis vs infiltrate. 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 absent: Rales, Rhonchi, Wheezes, Respiratory Distress - Cardiovascular Exam Cardiovascular Exam: REGULAR RHYTHM, RRR, +S1, +S2. absent: JVD - GI/Abdominal Exam GI & Abdominal Exam: Normal Bowel Sounds, Soft. absent: Distended, Guarding, Rebound, Tenderness - Rectal Exam Rectal Exam: Deferred - Extremities Exam Extremities exam: normal capillary refill, normal inspection, pedal pulses present - Back Exam Back exam: NORMAL INSPECTION - Neurological Exam Neurological exam: Alert, CN II-XII Intact, Oriented x3, Reflexes Normal - Psychiatric Exam Psychiatric exam: Normal Affect, Normal Mood - Skin Skin Exam: Dry, Intact, Normal Color, Warm Discharge Plan - Discharge Medications Prescriptions: Levofloxacin [Levaquin] 500 mg PO DAILY #7 tablet oxyCODONE/Acetaminophen [Percocet 5/325 mg Tab] 1 tab PO Q6 PRN #20 tab PRN Reason: Pain, Severe (8-10) - Follow Up Plan Condition: STABLE Disposition: HOME/ ROUTINE Patient education suggested?: Yes Instructions: Sickle Cell Crisis (DC), Community Acquired Pneumonia (DC) Additional Instructions: [facility] [place] el 29 august a las 1:00pm llegar 20 minutos temprano y llevar los papeles de [facility] care con usted. Referrals: [facility] [place] [Outside]
== END 2017-08-23 13:24 | disposition home or self-care (01) | DRG 574 ==
LOC: H.ER 16:37 → H.ERHOLD 08-22 00:25 → H.MEDSURG1 08-22 02:19
PROVIDERS: ADMIT Internal Medicine; ATTEND Internal Medicine
DX: D57.00 Hb-SS disease with crisis, unspecified (principal); J18.9 Pneumonia, unspecified organism; J45.909 Unspecified asthma, uncomplicated; R50.81 Fever presenting with conditions classified elsewhere; Z83.3 Family history of diabetes mellitus; Z90.49 Acquired absence of other specified parts of digestive tract; M54.9 Dorsalgia, unspecified

== ENCOUNTER 2017-11-26 02:25 | Inpatient (IN) | payer MEDICAID ==
[2017-11-26 02:46] VITALS: BMI 25.6
[2017-11-26] MEDS ORDERED: Sodium Chloride 0.9% 1,000 ML IV STA (02:46)
[2017-11-26 03:33] LABS: CALCIUM 9.2 mg/dL (8.4-10.2); GFR AFRICAN-AMERICAN > 60; GFR NON-AFRICAN AMERICAN > 60
--- NOTE | 2017-11-26 03:34 | ED PDOC ---
HPI: SOB/CHF/COPD Time Seen by Provider: 11/26/17 02:39 Chief Complaint (Nursing): Shortness Of Breath Chief Complaint (Provider): Shortness Of Breath History Per: Patient History/Exam Limitations: no limitations Onset/Duration Of Symptoms: Hrs (x3 hours) Additional Complaint(s): 22 y/o female with past medical history of sickle cell and asthma presents to the ED with lower back pain that began around 11pm, 11/25/17. Patient reports that it is typical for her to get pain in lower back and shortness of breath when she has sickle cell crisis. Reports that she is unresponsive to Motrin and Oxycodone. Denies chest pain, fever, cough or any further medical complaints. Past Medical History Reviewed: Historical Data, Nursing Documentation, Vital Signs Vital Signs: Last Vital Signs Temp 98.9 F 11/26/17 02:45 Pulse 83 11/26/17 02:45 Resp 18 11/26/17 03:00 BP 115/62 11/26/17 02:45 Pulse Ox 96 11/26/17 03:39 - Medical History PMH: Asthma, Sickle Cell Disease Denies: Anemia, Atrial Fibrillation, Bronchitis, CAD, Cardia Arrhythmia, CHF , COPD, Emphysema, HIV, HTN, Hypercholesterolemia, Mitral Valve Prolapse, Peripheral Edema, Pneumonia, Pulmonary Embolism, Chronic Kidney Disease, Sleep Apnea - Surgical History Surgical History: Cholecystectomy (At age 11), Tonsillectomy Denies: Pacemaker - Family History Family History: States: Unknown Family Hx - Social History Current smoker - smoking cessation education provided: No Alcohol: None Drugs: Denies - Home Medications Home Medications: Ambulatory Orders Medication Instructions Recorded RX: Folic Acid 1 mg PO DAILY #30 01/18/17 RX: Hydroxyurea [Hydrea] 1,500 mg PO DAILY #30 01/18/17 RX: Ibuprofen [Motrin Tab] 400 mg PO Q6H PRN #30 tab 01/18/17 Levofloxacin [Levaquin] 500 mg PO DAILY #7 tablet 08/23/17 oxyCODONE/Acetaminophen [Percocet 1 tab PO Q6 PRN #20 tab 08/23/17 5/325 mg Tab] - Allergies Allergies/Adverse Reactions: Allergies Allergy/AdvReac Type Severity Reaction Status Date / Time No Known Allergies Allergy Verified 05/28/17 22:06 Review of Systems ROS Statement: Except As Marked, All Systems Reviewed And Found Negative (As per HPI, otherwise negative) Constitutional: Negative for: Fever Cardiovascular: Negative for: Chest Pain Respiratory: Positive for: Shortness of Breath. Negative for: Cough Musculoskeletal: Positive for: Back Pain (Lower back pain) Physical Exam - Reviewed Nursing Documentation Reviewed: Yes Vital Signs Reviewed: Yes - Physical Exam Appears: Positive for: Uncomfortable Head Exam: Positive for: ATRAUMATIC, NORMAL INSPECTION, NORMOCEPHALIC Skin: Positive for: Normal Color, Warm, Dry Eye Exam: Positive for: EOMI, PERRL, Scleral icterus ENT: Positive for: Normal ENT Inspection Neck: Positive for: Normal, Painless ROM, Supple Cardiovascular/Chest: Positive for: Regular Rate, Rhythm. Negative for: Murmur Respiratory: Positive for: Normal Breath Sounds. Negative for: Accessory Muscle Use Gastrointestinal/Abdominal: Positive for: Normal Exam, Bowel Sounds, Soft Back: Positive for: Vertebral Tenderness (Paravertebral tenderness), Other ( Midline tenderness) Extremity: Positive for: Normal ROM. Negative for: Deformity Neurologic/Psych: Positive for: Alert, Oriented (x3) - Laboratory Results Result Diagrams: 11/26/17 03:17 11/26/17 03:17 - ECG O2 Sat by Pulse Oximetry: 96 (RA) Pulse Ox Interpretation: Normal Medical Decision Making Medical Decision Making: Time: 02:46 Initial Impression: Sickle cell pain crisis Plan: BMP CBC w/ differntial Reticulocyte count Toradol 15mg IVP Morphine 2mg IVP Sodium chloride 1L IVP O2 via nasal cannula Reevaluation 530 Patient is starting to improve, however patient has significant leukocytosis and reticulocyte count. Pt. afebrile without cough/fevers, not suspicious for acute chest syndrome at this time. CXR read as negative for consolidation. Will place in OBS given retic/leukocytosis for repeat lab draw and monitoring. Will do ABG to assess for lactic acidosis. Case discussed with FP resident carton catcher. Scribe Attestation: Documented by John Dimas acting as a scribe for Vikram Song MD. Scribe Attestation: All medical record entries made by the Scribe were at my direction and personally dictated by me. I have reviewed the chart and agree that the record accurately reflects my personal performance of the history, physical exam, medical decision making, and the department course for this patient. I have also personally directed, reviewed, and agree with the discharge instructions and disposition. Disposition - Clinical Impression Clinical Impression: Sickle cell crisis - Patient ED Disposition Is Patient to be Admitted: Yes - Disposition Disposition Time: 05:52 Condition: IMPROVED Forms: [facility] (Gambian)
[2017-11-26 03:46] LABS: BLOOD UREA NITROGEN 13 mg/dl (7-17)
[2017-11-26 03:49] LABS: BASO # 0.1 K/uL (0.0-0.2); BASO % 0.7 % (0.0-2.0); EOS # 0.2 K/uL (0.0-0.7); EOS % 1.4 % (0.0-4.0); HEMOGLOBIN 9.2 g/dL (12.0-16.0); LYMPH % 23.9 % (20.0-40.0); MEAN CELL VOLUME 104.2 fl (81.0-99.0); MEAN CORPUSCULAR HEMOGLOBIN 37.6 pg (27.0-31.0); MEAN CORPUSCULAR HGB CONC 36.1 g/dL (33.0-37.0); MEAN PLATELET VOLUME 8.2 fl (7.2-11.7); MONO # 1.3 K/uL (0.0-0.8); MONO % 7.8 % (0.0-10.0); NEUT % 66.2 % (50.0-75.0); NRBC % 2.3 % (0.0-0.0); RBC 2.43 Mil/uL (3.80-5.20); RED CELL DISTRIBUTION WIDTH 20.4 % (11.5-14.5); WHITE BLOOD COUNT 16.6 K/uL (4.8-10.8)
--- NOTE | 2017-11-26 05:26 | RAD ---
EXAM: XR Chest, 1 View CLINICAL HISTORY: 22 years old, female; Signs and symptoms; Other: Sickle cell; Additional info: HX of sickle cell, SOB TECHNIQUE: Frontal view of the chest. COMPARISON: CR - CHEST TWO VIEWS (PA/LAT) 2017-05-28 22:13 FINDINGS: Limitations: Radiographic technique - mild. Lungs: No consolidation. Increased density lung bases, likely related to overlying soft tissues. Pleural space: No pleural effusion. No pneumothorax. Heart: Mild cardiomegaly. Mediastinum: Unremarkable. Bones/joints: No acute fracture. IMPRESSION: 1. Mild cardiomegaly. 2. Incidental/non-acute findings are described above.
[2017-11-26 06:32] LABS: ABG ALLEN TEST YES; ARTERIAL BLOOD GAS HCO3 24.3 mmol/L (21-28); ARTERIAL BLOOD GAS O2 SAT 99.3 % (95-98); ARTERIAL BLOOD GAS PCO2 37 mm/Hg (35-45); ARTERIAL BLOOD GAS PH 7.41 (7.35-7.45); ARTERIAL BLOOD GAS PO2 120 mm/Hg (80-100); ARTERIAL BLOOD GAS TCO2 24.6 mmol/L (22-28)
[2017-11-26] MEDS ORDERED: Oxycodone/Acetaminophen 5/325 mg Tab PO PRN (07:44)
[2017-11-26] MEDS: Sodium Chloride 0.9% 1,000 ML IV SCH ×3 (08:21→22:23)
--- NOTE | 2017-11-26 08:48 | CP.PCM.HP ---
History of Present Illness - History of Present Illness History of Present Illness: CC: Chest Pain with known Sickle Cell Disease 22F p/w acute onset of chest pain 9/10 that she is unable to qualify "just feels like last time" that started lastnight and began developing worsening shortness of breath. Currently she her pain is 0/10 and she denies SOB. This even was preceded by poor PO intake, medication lapse for 3 weeks, but importantly she denies any prodrome of infection to include ear/throat pain/ sinus congestion/cough/sick contacts, N/V, diarrhea, dysuria, fevers, chills, or pain at any other site to include abdomen/joints/visual changes/headaches. PMH: Sickle Cell Disease PSH: Cholecystectomy SHx: Denies smoking, alcohol, or drugs ALL: NKDA LMP: 11/01/2017 ED COURSE CBC, Retic Count, BMP, ABG, Troponin CXR, EKG Pain Meds, Oxygen, 1L bolus NS Present on Admission - Present on Admission Any Indicators Present on Admission: No Review of Systems - Cardiovascular Cardiovascular: Chest Pain Past Patient History - Past Medical History & Family History Past Medical History?: Yes - Past Social History Alcohol: None Drugs: Denies - CARDIAC Hx Atrial Fibrillation: No Hx Cardia Arrhythmia: No Hx Congestive Heart Failure: No Hx Hypercholesterolemia: No Hx Hypertension: No Hx Mitral Valve Prolapse: No Hx Pacemaker: No Hx Peripheral Edema: No - PULMONARY Hx Respiratory Disorders: Yes (asthma) - NEUROLOGICAL Hx Neurological Disorder: No - HEENT Hx HEENT Problems: No - RENAL Hx Chronic Kidney Disease: No - ENDOCRINE/METABOLIC Hx Endocrine Disorders: No - HEMATOLOGICAL/ONCOLOGICAL Hx Blood Disorders: Yes (sickle cell) - INTEGUMENTARY Hx Dermatological Problems: No - MUSCULOSKELETAL/RHEUMATOLOGICAL Hx Falls: No - GASTROINTESTINAL Hx Gastrointestinal Disorders: No - GENITOURINARY/GYNECOLOGICAL Hx Genitourinary Disorders: No - PSYCHIATRIC Hx Psychophysiologic Disorder: No Hx Substance Use: No - SURGICAL HISTORY Hx Cholecystectomy: Yes (At age 11) Hx Tonsillectomy: Yes - ANESTHESIA Hx Anesthesia: Yes Hx Anesthesia Reactions: No Hx Malignant Hyperthermia: No Meds Allergies/Adverse Reactions: Allergies Allergy/AdvReac Type Severity Reaction Status Date / Time No Known Allergies Allergy Verified 05/28/17 22:06 Physical Exam - Constitutional Appears: Non-toxic, No Acute Distress - Head Exam Head Exam: ATRAUMATIC, NORMAL INSPECTION - Eye Exam Eye Exam: EOMI, PERRL, Scleral icterus - ENT Exam ENT Exam: Mucous Membranes Dry - Neck Exam Neck exam: Positive for: Full Rom, Normal Inspection - Respiratory Exam Respiratory Exam: Clear to Auscultation Bilateral, NORMAL BREATHING PATTERN ( BUT SpO2: 92-93% on RA) - Cardiovascular Exam Cardiovascular Exam: REGULAR RHYTHM, +S1, +S2 - GI/Abdominal Exam GI & Abdominal Exam: Normal Bowel Sounds, Soft (non-tender) - Extremities Exam Extremities exam: Positive for: full ROM, normal inspection, pedal pulses present - Neurological Exam Neurological exam: Oriented x3 - Psychiatric Exam Psychiatric exam: Normal Affect, Normal Mood - Skin Skin Exam: Dry, Normal Color (could not appreciate jaundice), Warm Results - Vital Signs Recent Vital Signs: Last Vital Signs Temp 36.5 C 11/26/17 08:22 Pulse 81 11/26/17 08:22 Resp 16 11/26/17 08:22 BP 110/63 11/26/17 08:22 Pulse Ox 100 11/26/17 06:12 - Labs Result Diagrams: 11/26/17 12:04 11/26/17 12:04 Labs: Laboratory Results - last 24 hr 11/26/17 11/26/17 11/26/17 03:17 03:17 03:17 WBC 16.6 H D RBC 2.43 L Hgb 9.2 L Hct 25.3 L MCV 104.2 H D MCH 37.6 H MCHC 36.1 RDW 20.4 H Plt Count 389 D MPV 8.2 Neut % (Auto) 66.2 Lymph % (Auto) 23.9 [place] % (Auto) 7.8 Eos % (Auto) 1.4 Baso % (Auto) 0.7 Neut # (Auto) 11.0 H Lymph # (Auto) 4.0 [place] # (Auto) 1.3 H Eos # (Auto) 0.2 Baso # (Auto) 0.1 Retic Count 15.6 H D pCO2 pO2 HCO3 ABG pH ABG Total CO2 ABG O2 Saturation ABG Base Excess Giacomo Test ABG Potassium A-a O2 Difference Glucose Lactate Vent Mode FiO2 Sodium 140 Potassium 3.8 Chloride 105 Carbon Dioxide 19 L Anion Gap 20 BUN 13 Creatinine 0.4 L Est GFR ( Amer) > 60 Est GFR (Non-Af Amer) > 60 Random Glucose 138 H Calcium 9.2 Arterial Blood Potassium 11/26/17 06:25 WBC RBC Hgb Hct MCV MCH MCHC RDW Plt Count MPV Neut % (Auto) Lymph % (Auto) [place] % (Auto) Eos % (Auto) Baso % (Auto) Neut # (Auto) Lymph # (Auto) [place] # (Auto) Eos # (Auto) Baso # (Auto) Retic Count pCO2 37 pO2 120 H HCO3 24.3 ABG pH 7.41 ABG Total CO2 24.6 ABG O2 Saturation 99.3 H ABG Base Excess -0.8 Giacomo Test Yes ABG Potassium 4.1 A-a O2 Difference 33.0 Glucose 113 H Lactate 0.7 Vent Mode 2lnc FiO2 28.0 Sodium 137.0 Potassium Chloride 112.0 H Carbon Dioxide Anion Gap BUN Creatinine Est GFR ( Amer) Est GFR (Non-Af Amer) Random Glucose Calcium Arterial Blood Potassium 4.1 Assessment & Plan - Assessment and Plan (Free Text) Assessment: 22F p/w acute Sickle Cell crisis with acute chest syndrome. At time of evaluation no transfusion or antibiotics needed. Leukocytosis thought to be secondary to hemoconcentration (hgb 9.5). Plan: - Influenza, UA, UCx, CBC w/ smear, CMP, haptoglobin - IVF @ 150cc/hr - Pain regimen (min, mod, severe) - DVT prophyalxis, 40mg Lovenox - Folic Acid, Hydroxyurea - 2LNC - Heme/Onc Consult (Dr Lucas)
[2017-11-26 08:50] VITALS: RESP 18
[2017-11-26 09:03] LABS: SQUAMOUS EPITHIAL 2 /hpf (0-5); URINE BACTERIA RARE (<OCC); URINE BILIRUBIN NEGATIVE (NEGATIVE); URINE BLOOD NEGATIVE (NEGATIVE); URINE CLARITY CLEAR (Clear); URINE COLOR YELLOW (YELLOW); URINE GLUCOSE (UA) NEG (Normal); URINE LEUKOCYTE ESTERASE NEG Leu/uL (Negative); URINE NITRATE NEGATIVE (NEGATIVE); URINE PROTEIN NEGATIVE (NEGATIVE)
[2017-11-26 12:29] LABS: BASO # 0.1 K/uL (0.0-0.2); BASO % 0.9 % (0.0-2.0); EOS # 0.1 K/uL (0.0-0.7); EOS % 0.8 % (0.0-4.0); HEMOGLOBIN 8.6 g/dL (12.0-16.0); LYMPH # 4.5 K/uL (1.0-4.3); LYMPH % 29.6 % (20.0-40.0); MEAN CELL VOLUME 103.4 fl (81.0-99.0); MEAN CORPUSCULAR HEMOGLOBIN 36.7 pg (27.0-31.0); MEAN CORPUSCULAR HGB CONC 35.5 g/dL (33.0-37.0); MEAN PLATELET VOLUME 8.3 fl (7.2-11.7); MONO # 1.7 K/uL (0.0-0.8); MONO % 11.3 % (0.0-10.0); NEUT # 8.8 K/uL (1.8-7.0); NEUT % 57.4 % (50.0-75.0); NRBC % 2.2 % (0.0-0.0); PLATELET COUNT 414 K/uL (130-400); RBC 2.35 Mil/uL (3.80-5.20); RED CELL DISTRIBUTION WIDTH 20.1 % (11.5-14.5); WHITE BLOOD COUNT 15.4 K/uL (4.8-10.8)
[2017-11-26 12:58] LABS: ALBUMIN 4.2 g/dL (3.5-5.0); ALT/SGPT 76 U/L (9-52); AST/SGOT 77 U/L (14-36); BLOOD UREA NITROGEN 7 mg/dl (7-17); CALCIUM 9.2 mg/dL (8.4-10.2); GFR AFRICAN-AMERICAN > 60; GFR NON-AFRICAN AMERICAN > 60
[2017-11-26 15:03] LABS: BANDS 1 % (0-2); EOSINOPHIL 3 % (0-7); LYMPHOCYTE 34 % (20-50); MONOCYTE 12 % (0-10); NEUTROPHIL 50 % (42-75); NUCLEATED RED BLOOD CELL 2 % (0-0); TOTAL CELLS COUNTED 100
[2017-11-26 15:04] LABS: ANISOCYTOSIS MODERATE; PLATELET ESTIMATE SLIGHTLY INCREASED (NORMAL)
[2017-11-26 15:05] LABS: HYPOCHROMIC MODERATE; OVALOCYTES SLIGHT; POIKILOCYTOSIS MODERATE; POLYCHROMIC SLIGHT; TARGET CELLS SLIGHT
[2017-11-26 15:06] LABS: SCHISTOCYTES SLIGHT; SICKLE CELLS MODERATE; TEARDROP CELLS SLIGHT
--- NOTE | 2017-11-26 19:00 | CP.PCM.CON ---
History of Present Illness - History of Present Illness History of Present Illness: 22 year old female with a history of sickle cell anemia, admitted with sickle cell pain crisis. She reports to increasing pain involving her lower extremities and back despite oral pain medication. She feels stress and the weather exacerbated her sickle cell pain. She denies shortness of breath but does have pain around her ribs. She denies fevers and chills. Past medical history: Sickle cell anemia Past surgical history: Cholecystectomy Family history: Parents have the trait. Social history: Denies tobacco, alcohol, and illicit drug use. Allergies: NKA Review of systems: All remaining review of systems including HEENT, cardiovascular, respiratory, gastrointestinal, genitourinary, musculoskeletal, dermatologic, neurologic, and psychiatric are negative unless mentioned in the HPI. Past Patient History - Past Medical History & Family History Past Medical History?: Yes - Past Social History Smoking Status: Never Smoked - CARDIAC Hx Cardiac Disorders: No Hx Atrial Fibrillation: No Hx Cardia Arrhythmia: No Hx Congestive Heart Failure: No Hx Hypercholesterolemia: No Hx Hypertension: No Hx Mitral Valve Prolapse: No Hx Pacemaker: No Hx Peripheral Edema: No - PULMONARY Hx Respiratory Disorders: Yes Hx Asthma: Yes - NEUROLOGICAL Hx Neurological Disorder: No - HEENT Hx HEENT Problems: No - RENAL Hx Chronic Kidney Disease: No - ENDOCRINE/METABOLIC Hx Endocrine Disorders: No - HEMATOLOGICAL/ONCOLOGICAL Hx Blood Disorders: Yes Hx Sickle Cell Disease: Yes - INTEGUMENTARY Hx Dermatological Problems: No - MUSCULOSKELETAL/RHEUMATOLOGICAL Hx Falls: No - GASTROINTESTINAL Hx Gastrointestinal Disorders: No - GENITOURINARY/GYNECOLOGICAL Hx Genitourinary Disorders: No - PSYCHIATRIC Hx Substance Use: No - SURGICAL HISTORY Hx Surgeries: Yes Hx Cholecystectomy: Yes (At age 11) Hx Tonsillectomy: Yes - ANESTHESIA Hx Anesthesia: Yes Hx Anesthesia Reactions: No Hx Malignant Hyperthermia: No Meds Allergies/Adverse Reactions: Allergies Allergy/AdvReac Type Severity Reaction Status Date / Time No Known Allergies Allergy Verified 05/28/17 22:06 - Medications Medications: Current Medications Acetaminophen (Tylenol 325mg Tab) 650 mg PO Q6 [facility] Last Admin: 11/26/17 16:17 Dose: Not Given Enoxaparin Sodium (Lovenox) 40 mg SC HS [facility] PRN Reason: Protocol Folic Acid (Folic Acid) 1 mg PO DAILY [facility] Last Admin: 11/26/17 09:45 Dose: 1 mg Hydromorphone HCl (Dilaudid) 0.5 mg IVP Q6 PRN PRN Reason: Pain, severe (8-10) Hydroxyurea (Hydrea) 1,500 mg PO DAILY [facility] Last Admin: 11/26/17 16:17 Dose: 1,500 mg Sodium Chloride (Sodium Chloride 0.9%) 1,000 mls @ 150 mls/hr IV .Q6H40M [facility] Last Admin: 11/26/17 15:10 Dose: 150 mls/hr Oxycodone/Acetaminophen (Percocet 5/325 Mg Tab) 1 tab PO Q4 PRN PRN Reason: Pain, moderate (4-7) Stop: 11/29/17 07:45 Last Admin: 11/26/17 12:22 Dose: 1 tab Physical Exam - Head Exam Head Exam: ATRAUMATIC - Eye Exam Eye Exam: Normal appearance - ENT Exam ENT Exam: Mucous Membranes Dry - Respiratory Exam Respiratory Exam: NORMAL BREATHING PATTERN - Cardiovascular Exam Cardiovascular Exam: +S1, +S2 - GI/Abdominal Exam GI & Abdominal Exam: Normal Bowel Sounds - Extremities Exam Extremities exam: Positive for: normal inspection - Neurological Exam Neurological exam: Oriented x3 - Psychiatric Exam Psychiatric exam: Normal Affect, Normal Mood - Skin Skin Exam: Warm Results - Vital Signs Recent Vital Signs: Last Vital Signs Temp 98.1 F 11/26/17 15:59 Pulse 82 11/26/17 15:59 Resp 18 11/26/17 15:59 BP 90/53 L 11/26/17 15:59 Pulse Ox 98 11/26/17 15:59 - Labs Result Diagrams: 11/26/17 12:04 11/26/17 12:04 Labs: Laboratory Results - last 24 hr 11/26/17 11/26/17 11/26/17 03:17 03:17 03:17 WBC 16.6 H D RBC 2.43 L Hgb 9.2 L Hct 25.3 L MCV 104.2 H D MCH 37.6 H MCHC 36.1 RDW 20.4 H Plt Count 389 D MPV 8.2 Neut % (Auto) 66.2 Lymph % (Auto) 23.9 Long % (Auto) 7.8 Eos % (Auto) 1.4 Baso % (Auto) 0.7 Neut # (Auto) 11.0 H Lymph # (Auto) 4.0 Long # (Auto) 1.3 H Eos # (Auto) 0.2 Baso # (Auto) 0.1 Neutrophils % (Manual) Band Neutrophils % Lymphocytes % (Manual) Monocytes % (Manual) Eosinophils % (Manual) Nucleated RBC % Platelet Estimate Polychromasia Hypochromasia (manual) Poikilocytosis (manual Basophilic Stippling Anisocytosis (manual) Macrocytosis (manual) Sickle Cells Target Cells Tear Drop Cells Ovalocytes Schistocytes Retic Count 15.6 H D pCO2 pO2 HCO3 ABG pH ABG Total CO2 ABG O2 Saturation ABG Base Excess Giacomo Test ABG Potassium A-a O2 Difference Glucose Lactate Vent Mode FiO2 Sodium 140 Potassium 3.8 Chloride 105 Carbon Dioxide 19 L Anion Gap 20 BUN 13 Creatinine 0.4 L Est GFR ( Amer) > 60 Est GFR (Non-Af Amer) > 60 Random Glucose 138 H Calcium 9.2 Total Bilirubin AST ALT Alkaline Phosphatase Total Protein Albumin Globulin Albumin/Globulin Ratio Arterial Blood Potassium Urine Color Urine Clarity Urine pH Ur Specific [place] Urine Protein Urine Glucose (UA) Urine Ketones Urine Blood Urine Nitrate Urine Bilirubin Urine Urobilinogen Ur Leukocyte Esterase Urine RBC (Auto) Urine Microscopic WBC Ur Squamous Epith Cells Urine Bacteria Influenza Typ A,B (EIA) 11/26/17 11/26/17 11/26/17 06:25 08:30 08:30 WBC RBC Hgb Hct MCV MCH MCHC RDW Plt Count MPV Neut % (Auto) Lymph % (Auto) Long % (Auto) Eos % (Auto) Baso % (Auto) Neut # (Auto) Lymph # (Auto) Long # (Auto) Eos # (Auto) Baso # (Auto) Neutrophils % (Manual) Band Neutrophils % Lymphocytes % (Manual) Monocytes % (Manual) Eosinophils % (Manual) Nucleated RBC % Platelet Estimate Polychromasia Hypochromasia (manual) Poikilocytosis (manual Basophilic Stippling Anisocytosis (manual) Macrocytosis (manual) Sickle Cells Target Cells Tear Drop Cells Ovalocytes Schistocytes Retic Count pCO2 37 pO2 120 H HCO3 24.3 ABG pH 7.41 ABG Total CO2 24.6 ABG O2 Saturation 99.3 H ABG Base Excess -0.8 Giacomo Test Yes ABG Potassium 4.1 A-a O2 Difference 33.0 Glucose 113 H Lactate 0.7 Vent Mode 2lnc FiO2 28.0 Sodium 137.0 Potassium Chloride 112.0 H Carbon Dioxide Anion Gap BUN Creatinine Est GFR ( Amer) Est GFR (Non-Af Amer) Random Glucose Calcium Total Bilirubin AST ALT Alkaline Phosphatase Total Protein Albumin Globulin Albumin/Globulin Ratio Arterial Blood Potassium 4.1 Urine Color Yellow Urine Clarity Clear Urine pH 6.0 Ur Specific [place] 1.009 Urine Protein Negative Urine Glucose (UA) Neg Urine Ketones Negative Urine Blood Negative Urine Nitrate Negative Urine Bilirubin Negative Urine Urobilinogen 2.0 H Ur Leukocyte Esterase Neg Urine RBC (Auto) 1 Urine Microscopic WBC 2 Ur Squamous Epith Cells 2 Urine Bacteria Rare Influenza Typ A,B (EIA) Negative for flu a/b 11/26/17 11/26/17 12:04 12:04 WBC 15.4 H RBC 2.35 L Hgb 8.6 L Hct 24.3 L MCV 103.4 H MCH 36.7 H MCHC 35.5 RDW 20.1 H Plt Count 414 H MPV 8.3 Neut % (Auto) 57.4 Lymph % (Auto) 29.6 Long % (Auto) 11.3 H Eos % (Auto) 0.8 Baso % (Auto) 0.9 Neut # (Auto) 8.8 H Lymph # (Auto) 4.5 H Long # (Auto) 1.7 H Eos # (Auto) 0.1 Baso # (Auto) 0.1 Neutrophils % (Manual) 50 Band Neutrophils % 1 Lymphocytes % (Manual) 34 Monocytes % (Manual) 12 H Eosinophils % (Manual) 3 Nucleated RBC % 2 H Platelet Estimate Slightly increased H Polychromasia Slight Hypochromasia (manual) Moderate Poikilocytosis (manual Moderate Basophilic Stippling Slight Anisocytosis (manual) Moderate Macrocytosis (manual) Moderate Sickle Cells Moderate Target Cells Slight Tear Drop Cells Slight Ovalocytes Slight Schistocytes Slight Retic Count pCO2 pO2 HCO3 ABG pH ABG Total CO2 ABG O2 Saturation ABG Base Excess Giacomo Test ABG Potassium A-a O2 Difference Glucose Lactate Vent Mode FiO2 Sodium 143 Potassium 4.3 Chloride 108 H Carbon Dioxide 21 L Anion Gap 18 BUN 7 Creatinine 0.3 L Est GFR ( Amer) > 60 Est GFR (Non-Af Amer) > 60 Random Glucose 101 Calcium 9.2 Total Bilirubin 5.5 H AST 77 H ALT 76 H Alkaline Phosphatase 97 Total Protein 8.3 H Albumin 4.2 Globulin 4.1 H Albumin/Globulin Ratio 1.0 Arterial Blood Potassium Urine Color Urine Clarity Urine pH Ur Specific [place] Urine Protein Urine Glucose (UA) Urine Ketones Urine Blood Urine Nitrate Urine Bilirubin Urine Urobilinogen Ur Leukocyte Esterase Urine RBC (Auto) Urine Microscopic WBC Ur Squamous Epith Cells Urine Bacteria Influenza Typ A,B (EIA) Assessment & Plan (1) Sickle cell pain crisis Assessment and Plan: IV fluids, pain meds, folic acid, 02 via NC no current indication for transfusion support Status: Acute (2) Leucocytosis Assessment and Plan: likely reactive to sickle cell Status: Acute (3) Sickle cell anemia Assessment and Plan: folic acid and hydrea Thank you for this interesting consult. Status: Acute
[2017-11-26] MEDS ORDERED: Enoxaparin 40 mg Syringe SC SCH (22:00)
[2017-11-27] MEDS: Sodium Chloride 0.9% 1,000 ML IV SCH ×3 (06:52→11:42)
[2017-11-27 08:13] VITALS: O2SAT 94
[2017-11-27 08:42] LABS: BASO # 0.2 K/uL (0.0-0.2); BASO % 1.6 % (0.0-2.0); EOS # 0.3 K/uL (0.0-0.7); EOS % 3.3 % (0.0-4.0); HEMOGLOBIN 8.9 g/dL (12.0-16.0); LYMPH # 4.4 K/uL (1.0-4.3); LYMPH % 46.2 % (20.0-40.0); MEAN CELL VOLUME 102.2 fl (81.0-99.0); MEAN CORPUSCULAR HEMOGLOBIN 38.7 pg (27.0-31.0); MEAN CORPUSCULAR HGB CONC 37.8 g/dL (33.0-37.0); MEAN PLATELET VOLUME 8.4 fl (7.2-11.7); MONO % 10.9 % (0.0-10.0); NEUT # 3.6 K/uL (1.8-7.0); NRBC % 4.5 % (0.0-0.0); RBC 2.3 Mil/uL (3.80-5.20); RED CELL DISTRIBUTION WIDTH 21.2 % (11.5-14.5); WHITE BLOOD COUNT 9.5 K/uL (4.8-10.8)
--- NOTE | 2017-11-27 09:21 | CP.PCM.PN ---
Subjective - Date & Time of Evaluation Date of Evaluation: 11/27/17 Time of Evaluation: 07:15 - Subjective Subjective: 22F Objective - Vital Signs/Intake and Output Vital Signs (last 24 hours): Temp Pulse Resp BP Pulse Ox 36.6 C 81 18 103/62 94 L 11/27/17 08:12 11/27/17 08:12 11/27/17 08:12 11/27/17 08:12 11/27/17 08:12 - Medications Medications: Current Medications Acetaminophen (Tylenol 325mg Tab) 650 mg PO Q6 [facility] Last Admin: 11/27/17 04:00 Dose: Not Given Enoxaparin Sodium (Lovenox) 40 mg SC HS [facility] PRN Reason: Protocol Last Admin: 11/26/17 23:05 Dose: 40 mg Folic Acid (Folic Acid) 1 mg PO DAILY [facility] Last Admin: 11/27/17 08:38 Dose: 1 mg Hydromorphone HCl (Dilaudid) 0.5 mg IVP Q6 PRN PRN Reason: Pain, severe (8-10) Hydroxyurea (Hydrea) 1,500 mg PO DAILY [facility] Last Admin: 11/27/17 08:38 Dose: 1,500 mg Sodium Chloride (Sodium Chloride 0.9%) 1,000 mls @ 150 mls/hr IV .Q6H40M [facility] Last Admin: 11/27/17 06:52 Dose: 150 mls/hr Oxycodone/Acetaminophen (Percocet 5/325 Mg Tab) 1 tab PO Q4 PRN PRN Reason: Pain, moderate (4-7) Stop: 11/29/17 07:45 Last Admin: 11/26/17 12:22 Dose: 1 tab - Labs Labs: 11/27/17 07:58 11/26/17 12:04
[2017-11-27 09:34] LABS: ALT/SGPT 58 U/L (9-52); AST/SGOT 63 U/L (14-36); BLOOD UREA NITROGEN 6 mg/dl (7-17); GFR AFRICAN-AMERICAN > 60; GFR NON-AFRICAN AMERICAN > 60
--- NOTE | 2017-11-27 14:47 | CP.PCM.DIS ---
Provider - Provider Date of Admission: 11/27/17 09:19 Attending physician: Cally Mcclain MD Time Spent in preparation of Discharge (in minutes): 45 Diagnosis - Discharge Diagnosis (1) Sickle-cell crisis with associated acute chest syndrome Status: Acute Comment: Acute crisis multifactorial to include no medication, poor hydration, and stress. All labs improving, patient is pain free. Dr Lucas agree with current treatment. Patient requires application to apply for financial assistance from [employer]. ?Doesn't qualify for Medicaid? Hospital Course - Lab Results Lab Results: Micro Results 11/26/17 08:30 Urine Urine Culture - Final No Growth (<1,000 CFU/ML) Most Recent Lab Values WBC 9.5 K/uL (4.8-10.8) 11/27/17 07:58 RBC 2.30 Mil/uL (3.80-5.20) L 11/27/17 07:58 Hgb 8.9 g/dL (12.0-16.0) L 11/27/17 07:58 Hct 23.5 % (34.0-47.0) L 11/27/17 07:58 MCV 102.2 fl (81.0-99.0) H 11/27/17 07:58 MCH 38.7 pg (27.0-31.0) H 11/27/17 07:58 MCHC 37.8 g/dL (33.0-37.0) H 11/27/17 07:58 RDW 21.2 % (11.5-14.5) H 11/27/17 07:58 Plt Count 434 K/uL (130-400) H 11/27/17 07:58 MPV 8.4 fl (7.2-11.7) 11/27/17 07:58 Neut % (Auto) 38.0 % (50.0-75.0) L 11/27/17 07:58 Lymph % (Auto) 46.2 % (20.0-40.0) H 11/27/17 07:58 [place] % (Auto) 10.9 % (0.0-10.0) H 11/27/17 07:58 Eos % (Auto) 3.3 % (0.0-4.0) 11/27/17 07:58 Baso % (Auto) 1.6 % (0.0-2.0) 11/27/17 07:58 Neut # (Auto) 3.6 K/uL (1.8-7.0) 11/27/17 07:58 Lymph # (Auto) 4.4 K/uL (1.0-4.3) H 11/27/17 07:58 [place] # (Auto) 1.0 K/uL (0.0-0.8) H 11/27/17 07:58 Eos # (Auto) 0.3 K/uL (0.0-0.7) 11/27/17 07:58 Baso # (Auto) 0.2 K/uL (0.0-0.2) 11/27/17 07:58 Neutrophils % (Manual) 50 % (42-75) 11/26/17 12:04 Band Neutrophils % 1 % (0-2) 11/26/17 12:04 Lymphocytes % (Manual) 34 % (20-50) 11/26/17 12:04 Monocytes % (Manual) 12 % (0-10) H 11/26/17 12:04 Eosinophils % (Manual) 3 % (0-7) 11/26/17 12:04 Nucleated RBC % 2 % (0-0) H 11/26/17 12:04 Platelet Estimate Slightly increased (NORMAL) H 11/26/17 12:04 Polychromasia Slight 11/26/17 12:04 Hypochromasia (manual) Moderate 11/26/17 12:04 Poikilocytosis (manual Moderate 11/26/17 12:04 Basophilic Stippling Slight 11/26/17 12:04 Anisocytosis (manual) Moderate 11/26/17 12:04 Macrocytosis (manual) Moderate 11/26/17 12:04 Sickle Cells Moderate 11/26/17 12:04 Target Cells Slight 11/26/17 12:04 Tear Drop Cells Slight 11/26/17 12:04 Ovalocytes Slight 11/26/17 12:04 Schistocytes Slight 11/26/17 12:04 Retic Count 14.1 % (0.5-1.5) H 11/27/17 07:58 pCO2 37 mm/Hg (35-45) 11/26/17 06:25 pO2 120 mm/Hg (80-100) H 11/26/17 06:25 HCO3 24.3 mmol/L (21-28) 11/26/17 06:25 ABG pH 7.41 (7.35-7.45) 11/26/17 06:25 ABG Total CO2 24.6 mmol/L (22-28) 11/26/17 06:25 ABG O2 Saturation 99.3 % (95-98) H 11/26/17 06:25 ABG Base Excess -0.8 mmol/L (-2.0-3.0) 11/26/17 06:25 Giacomo Test Yes 11/26/17 06:25 ABG Potassium 4.1 mmol/L (3.6-5.2) 11/26/17 06:25 A-a O2 Difference 33.0 mm/Hg 11/26/17 06:25 Sodium 137.0 mmol/L (132-148) 11/26/17 06:25 Chloride 112.0 mmol/L (98-107) H 11/26/17 06:25 Glucose 113 mg/dL (65-105) H 11/26/17 06:25 Lactate 0.7 mmol/L (0.7-2.1) 11/26/17 06:25 Vent Mode 2lnc 11/26/17 06:25 FiO2 28.0 % 11/26/17 06:25 Sodium 143 mmol/l (132-148) 11/27/17 07:58 Potassium 4.7 MMOL/L (3.6-5.0) 11/27/17 07:58 Chloride 109 mmol/L (98-107) H 11/27/17 07:58 Carbon Dioxide 21 mmol/L (22-30) L 11/27/17 07:58 Anion Gap 18 (10-20) 11/27/17 07:58 BUN 6 mg/dl (7-17) L 11/27/17 07:58 Creatinine 0.4 mg/dl (0.7-1.2) L 11/27/17 07:58 Est GFR ( Amer) > 60 11/27/17 07:58 Est GFR (Non-Af Amer) > 60 11/27/17 07:58 Random Glucose 110 mg/dL (65-105) H 11/27/17 07:58 Calcium 9.0 mg/dL (8.4-10.2) 11/27/17 07:58 Total Bilirubin 5.0 mg/dl (0.2-1.3) H 11/27/17 07:58 AST 63 U/L (14-36) H 11/27/17 07:58 ALT 58 U/L (9-52) H D 11/27/17 07:58 Alkaline Phosphatase 92 U/L (38-126) 11/27/17 07:58 Total Protein 7.9 G/DL (6.3-8.2) 11/27/17 07:58 Albumin 4.0 g/dL (3.5-5.0) 11/27/17 07:58 Globulin 3.9 gm/dL (2.2-3.9) 11/27/17 07:58 Albumin/Globulin Ratio 1.0 (1.0-2.1) 11/27/17 07:58 Arterial Blood Potassium 4.1 mmol/L (3.6-5.2) 11/26/17 06:25 Urine Color Yellow (YELLOW) 11/26/17 08:30 Urine Clarity Clear (Clear) 11/26/17 08:30 Urine pH 6.0 (5.0-8.0) 11/26/17 08:30 Ur Specific [place] 1.009 (1.003-1.030) 11/26/17 08:30 Urine Protein Negative mg/dL (NEGATIVE) 11/26/17 08:30 Urine Glucose (UA) Neg mg/dL (Normal) 11/26/17 08:30 Urine Ketones Negative mg/dL (NEGATIVE) 11/26/17 08:30 Urine Blood Negative (NEGATIVE) 11/26/17 08:30 Urine Nitrate Negative (NEGATIVE) 11/26/17 08:30 Urine Bilirubin Negative (NEGATIVE) 11/26/17 08:30 Urine Urobilinogen 2.0 mg/dL (0.2-1.0) H 11/26/17 08:30 Ur Leukocyte Esterase Neg [place]/uL (Negative) 11/26/17 08:30 Urine RBC (Auto) 1 /hpf (0-3) 11/26/17 08:30 Urine Microscopic WBC 2 /hpf (0-5) 11/26/17 08:30 Ur Squamous Epith Cells 2 /hpf (0-5) 11/26/17 08:30 Urine Bacteria Rare (<OCC) 11/26/17 08:30 Influenza Typ A,B (EIA) Negative for flu a/b (NEGATIVE) 11/26/17 08:30 - Hospital Course Hospital Course: Patient seen and examined at bedside with attending. Pt denies any pain and is tolerating PO. All labs improving, reports having medication at home, SW provided Medicaid applications. She is stable for discharge to home with close follow up. Consultants Dr Lucas No medications changed as pt has medications at home new scripts were not provided. Discharge Exam - Head Exam Head Exam: ATRAUMATIC, NORMAL INSPECTION - Eye Exam Eye Exam: EOMI, PERRL, Scleral icterus - Neck Exam Neck exam: Normal Inspection - Respiratory Exam Respiratory Exam: Clear to PA & Lateral, NORMAL BREATHING PATTERN, UNREMARKABLE - Cardiovascular Exam Cardiovascular Exam: REGULAR RHYTHM, +S1, +S2 - GI/Abdominal Exam GI & Abdominal Exam: Normal Bowel Sounds, Soft - Extremities Exam Extremities exam: normal capillary refill, normal inspection, pedal pulses present - Neurological Exam Neurological exam: Alert, Normal Gait, Oriented x3 - Psychiatric Exam Psychiatric exam: Normal Affect, Normal Mood - Skin Skin Exam: Dry, Warm Discharge Plan - Discharge Medications Prescriptions: Folic Acid 1 mg PO DAILY #30 tab Hydroxyurea [Hydrea] 1,500 mg PO DAILY 30 Days cap - Follow Up Plan Condition: IMPROVED Disposition: HOME/ ROUTINE Instructions: Sickle Cell Disease (DC) Referrals: [facility] [Outside] - 1 Week (Central Scheduling will call with appointment.) Robert Lucas MD [Staff Provider] - 4 Weeks
[2017-11-27 16:00] VITALS: BP 106/69; PULSE 69; TEMP 98.3
--- NOTE | 2017-11-28 12:22 | CARD ---
APPROVED REPORT EKG Measurement Heart [id number] <Conclusion> Normal sinus rhythm Moderate voltage criteria for LVH, may be normal variant Junctional ST depression, probably normal Borderline ECG
== END 2017-11-27 17:30 | disposition home or self-care (01) | DRG 812 ==
LOC: H.ER 02:25 → H.ERHOLD 05:47 → H.MEDSURG1 08:44 → OBSVTOIN 11-27 09:19
PROVIDERS: ADMIT Family Medicine; ATTEND Family Medicine
DX: D57.01 Hb-SS disease with acute chest syndrome (principal); D72.828 Other elevated white blood cell count; Z90.49 Acquired absence of other specified parts of digestive tract

== ENCOUNTER 2018-01-06 04:43 | Observation (INO) | payer MEDICAID, OTHER ==
[2018-01-06 04:43] VITALS: BMI 25.6
[2018-01-06] MEDS ORDERED: Sodium Chloride 0.9% 1,000 ML IV STA ×2 (05:00→08:02)
--- NOTE | 2018-01-06 05:13 | ED PDOC ---
HPI: General Adult Time Seen by Provider: 01/06/18 04:54 Chief Complaint (Nursing): Pain, Chronic History Per: Patient History/Exam Limitations: no limitations Onset/Duration Of Symptoms: Hrs Current Symptoms Are (Timing): Still Present Additional Complaint(s): Hx of Sickle cell disease p/w pain crisis, state she woke up at 3AM with back pain and bilateral leg pain, which is her typical pain from sickle cell. Denies chest pain, fever, cough or any other symptoms. States she has been taking her hydroxyurea, folic acid, and took 400mg of motrin at 4AM without relief. Past Medical History Reviewed: Historical Data, Nursing Documentation, Vital Signs Vital Signs: Last Vital Signs Temp 97.6 F 01/06/18 04:57 Pulse 84 01/06/18 04:57 Resp 18 01/06/18 04:57 BP 109/63 01/06/18 04:57 Pulse Ox 98 01/06/18 05:13 - Medical History PMH: Asthma, Sickle Cell Disease Denies: Anemia, Atrial Fibrillation, Bronchitis, CAD, Cardia Arrhythmia, CHF , COPD, Emphysema, HIV, HTN, Hypercholesterolemia, Mitral Valve Prolapse, Peripheral Edema, Pneumonia, Pulmonary Embolism, Chronic Kidney Disease, Sleep Apnea - Surgical History Surgical History: Cholecystectomy (At age 11), Tonsillectomy Denies: Pacemaker - Family History Family History: States: Unknown Family Hx - Home Medications Home Medications: Ambulatory Orders Medication Instructions Recorded Folic Acid 1 mg PO DAILY #30 tab 11/27/17 Hydroxyurea [Hydrea] 1,500 mg PO DAILY 30 Days cap 11/27/17 - Allergies Allergies/Adverse Reactions: Allergies Allergy/AdvReac Type Severity Reaction Status Date / Time No Known Allergies Allergy Verified 05/28/17 22:06 Review of Systems ROS Statement: Except As Marked, All Systems Reviewed And Found Negative Musculoskeletal: Positive for: Back Pain, Leg Pain Physical Exam - Reviewed Nursing Documentation Reviewed: Yes Vital Signs Reviewed: Yes - Physical Exam Appears: Positive for: In Acute Distress Head Exam: Positive for: ATRAUMATIC, NORMAL INSPECTION, NORMOCEPHALIC Skin: Positive for: Normal Color, Warm, DRY Eye Exam: Positive for: EOMI, PERRL, Scleral icterus ENT: Positive for: Normal ENT Inspection Neck: Positive for: Normal, Painless ROM Cardiovascular/Chest: Positive for: Regular Rate, Rhythm Respiratory: Positive for: CNT, Normal Breath Sounds Gastrointestinal/Abdominal: Positive for: Normal Exam, Soft Back: Positive for: Normal Inspection. Negative for: L CVA Tenderness, R CVA Tenderness, Vertebral Tenderness, Decreased ROM, Muscle Spasm Extremity: Positive for: Normal ROM. Negative for: Tenderness, Pedal Edema, Calf Tenderness Neurologic/Psych: Positive for: Alert, former hand II-XII, Oriented. Negative for: Motor/Sensory Deficits - Laboratory Results Result Diagrams: 01/06/18 05:30 01/06/18 05:30 - ECG O2 Sat by Pulse Oximetry: 98 Pulse Ox Interpretation: Normal Medical Decision Making Medical Decision MakinAM A/P: Hx of sickle cell disease p/w back pain -patient uncomfortable appearing, appears in acute distress from pain -patient suffering from pain crisis -not concerned for acute chest, infectious etiology at this time -will treat with fluids and morphine 2mg -will check labs 0655 Patient feeling better, sleeping Case discussed with FP resident Dr. Neal, advised that patient may be admitted if still in pain after re-eval Will endorse to Dr. Titus pending re-eval for admission or discharge Disposition - Clinical Impression Clinical Impression: Sickle cell crisis - Patient ED Disposition Is Patient to be Admitted: Transfer of Care - Disposition Disposition: Transfer of Care Disposition Time: 07:00 Condition: STABLE Forms: [facility] (Polish) Patient Signed Over To: Cely Titus Handoff Comments: pending re-eval
[2018-01-06 06:20] LABS: BASO # 0.1 K/uL (0.0-0.2); BASO % 1.1 % (0.0-2.0); EOS # 0.1 K/uL (0.0-0.7); EOS % 0.5 % (0.0-4.0); HEMOGLOBIN 8.6 g/dL (12.0-16.0); LYMPH # 3.1 K/uL (1.0-4.3); LYMPH % 24.2 % (20.0-40.0); MEAN CELL VOLUME 114.4 fl (81.0-99.0); MEAN CORPUSCULAR HEMOGLOBIN 40.9 pg (27.0-31.0); MEAN CORPUSCULAR HGB CONC 35.7 g/dL (33.0-37.0); MEAN PLATELET VOLUME 8.4 fl (7.2-11.7); MONO # 1.3 K/uL (0.0-0.8); MONO % 10.6 % (0.0-10.0); NEUT % 63.6 % (50.0-75.0); NRBC % 3.9 % (0.0-0.0); RED CELL DISTRIBUTION WIDTH 22.1 % (11.5-14.5); WHITE BLOOD COUNT 12.6 K/uL (4.8-10.8)
[2018-01-06 06:50] LABS: BLOOD UREA NITROGEN 10 mg/dl (7-17); CALCIUM 9.1 mg/dL (8.4-10.2); GFR AFRICAN-AMERICAN > 60; GFR NON-AFRICAN AMERICAN > 60
--- NOTE | 2018-01-06 07:35 | ED PDOC ---
- Laboratory Results Result Diagrams: 01/06/18 05:30 01/06/18 05:30 - ECG O2 Sat by Pulse Oximetry: 98 Medical Decision Making Medical Decision Making: Received patient from Dr. Song. Patient is pending re-evaluation of pain. Patient has h/o sickle disease. If patient still has pain will need to be admitted to FP service. patient woke up earlier after the morphine. had recurrence of back pain. Also developed chest pain. EKG is normal. Chest x-ray looks normal. Will admit for observation. patient and family in agreement. Disposition Doctor Will See Patient In The: Hospital - Clinical Impression Clinical Impression: Sickle cell crisis, Back pain - POA Present On Arrival: None - Disposition Disposition: Transfer of Care Disposition Time: 09:00 Condition: FAIR Forms: [facility] (Swazi)
[2018-01-06 08:44] LABS: SQUAMOUS EPITHIAL 2 /hpf (0-5); URINE BACTERIA RARE (<OCC); URINE BILIRUBIN NEGATIVE (NEGATIVE); URINE BLOOD NEGATIVE (NEGATIVE); URINE CLARITY CLEAR (Clear); URINE COLOR YELLOW (YELLOW); URINE GLUCOSE (UA) NEG (Normal); URINE LEUKOCYTE ESTERASE MOD Leu/uL (Negative); URINE PROTEIN NEGATIVE (NEGATIVE); URINE UROBILINOGEN 0.2-1.0 mg/dL (0.2-1.0)
--- NOTE | 2018-01-06 10:32 | RAD ---
HISTORY: chest pain, h/o sickle cell COMPARISON: 11/26/2017 FINDINGS: LUNGS: No active pulmonary disease. PLEURA: No significant pleural effusion identified, no pneumothorax apparent. CARDIOVASCULAR: Normal. OSSEOUS STRUCTURES: No significant abnormalities. VISUALIZED UPPER ABDOMEN: Normal. OTHER FINDINGS: None. IMPRESSION: No active disease.
[2018-01-06 10:47] LABS: RBC 2.11 Mil/uL (3.80-5.20)
--- NOTE | 2018-01-06 11:15 | CARD ---
APPROVED REPORT EKG Measurement Heart [id number] <Conclusion> Normal sinus rhythm with sinus arrhythmia Normal ECG
--- NOTE | 2018-01-06 12:06 | CP.PCM.HP ---
History of Present Illness - History of Present Illness History of Present Illness: 22 yo F p/w PMH of sickle cell disease state she woke up at 3AM with back pain and bilateral leg pain, which is her typical pain from sickle cell. Denies chest pain, fever, cough or any other symptoms. States she has been taking her hydroxyurea, folic acid, and took 400mg of motrin at 4AM without relief. She denies any prodrome of infection to include ear/throat pain/sinus congestion /cough/sick contacts, N/V, diarrhea, dysuria, fevers, chills. Also she denies chest or abdominal pain, sob, palpitations. No urinary symptoms. PMH: Sickle Cell Disease, Asthma (last crisis when child) Meds: Hydroxyurea 500 mg Q8, Folic acid 1 mg daily PSH: Cholecystectomy, adenoidectomy and tonsilectomy when child SHx: Denies smoking, alcohol, or drugs ALL: NKDA ED COURSE VS: T 97.6, HR 84, RR 18, BP 109/63, Ox 98 RA. CBC, Retic Count, BMP, ABG, Troponin CXR, EKG Morphine 2 mg, 1L bolus NS EKG wnl CXR: negative for acute disease. Present on Admission - Present on Admission Any Indicators Present on Admission: No Review of Systems - Review of Systems All systems: reviewed and no additional remarkable complaints except (HPI) Past Patient History - Past Medical History & Family History Past Medical History?: Yes - Past Social History Smoking Status: Never Smoked - CARDIAC Hx Atrial Fibrillation: No Hx Cardia Arrhythmia: No Hx Congestive Heart Failure: No Hx Hypercholesterolemia: No Hx Hypertension: No Hx Mitral Valve Prolapse: No Hx Pacemaker: No Hx Peripheral Edema: No - PULMONARY Hx Asthma: Yes Hx Bronchitis: No Hx Chronic Obstructive Pulmonary Disease (COPD): No Hx Emphysema: No Hx Pneumonia: No Hx Pulmonary Embolism: No Hx Sleep Apnea: No - NEUROLOGICAL Hx Neurological Disorder: No - HEENT Hx HEENT Problems: No - RENAL Hx Chronic Kidney Disease: No - ENDOCRINE/METABOLIC Hx Endocrine Disorders: No - HEMATOLOGICAL/ONCOLOGICAL Hx Anemia: No Hx Human Immunodeficiency Virus (HIV): No Hx Sickle Cell Disease: Yes - INTEGUMENTARY Hx Dermatological Problems: No - MUSCULOSKELETAL/RHEUMATOLOGICAL Hx Falls: No - GASTROINTESTINAL Hx Gastrointestinal Disorders: No - GENITOURINARY/GYNECOLOGICAL Hx Genitourinary Disorders: No - PSYCHIATRIC Hx Psychophysiologic Disorder: No Hx Substance Use: No - SURGICAL HISTORY Hx Cholecystectomy: Yes (At age 11) Hx Tonsillectomy: Yes - ANESTHESIA Hx Anesthesia: Yes Hx Anesthesia Reactions: No Hx Malignant Hyperthermia: No Meds Allergies/Adverse Reactions: Allergies Allergy/AdvReac Type Severity Reaction Status Date / Time No Known Allergies Allergy Verified 05/28/17 22:06 Physical Exam - Constitutional Appears: No Acute Distress - Head Exam Head Exam: NORMAL INSPECTION - Eye Exam Eye Exam: EOMI, PERRL, Scleral icterus - ENT Exam ENT Exam: Mucous Membranes Moist - Respiratory Exam Respiratory Exam: Clear to Auscultation Bilateral, NORMAL BREATHING PATTERN. absent: Chest Wall Tenderness, Rales, Rhonchi, Wheezes - Cardiovascular Exam Cardiovascular Exam: REGULAR RHYTHM, +S1, +S2. absent: Tachycardia - GI/Abdominal Exam GI & Abdominal Exam: Normal Bowel Sounds, Soft. absent: Distended, Tenderness - Extremities Exam Extremities exam: Negative for: calf tenderness - Neurological Exam Neurological exam: Alert, CN II-XII Intact, Oriented x3 - Skin Skin Exam: Dry, Warm Results - Vital Signs Recent Vital Signs: Last Vital Signs Temp 97.6 F 01/06/18 04:57 Pulse 65 01/06/18 11:13 Resp 17 01/06/18 11:13 BP 104/67 01/06/18 11:13 Pulse Ox 99 01/06/18 11:13 - Labs Result Diagrams: 01/06/18 05:30 01/06/18 05:30 Labs: Laboratory Results - last 24 hr 01/06/18 01/06/18 01/06/18 05:30 05:30 05:30 WBC 12.6 H RBC 2.11 L Hgb 8.6 L Hct 24.2 L MCV 114.4 H D MCH 40.9 H MCHC 35.7 RDW 22.1 H Plt Count 352 MPV 8.4 Neut % (Auto) 63.6 Lymph % (Auto) 24.2 [place] % (Auto) 10.6 H Eos % (Auto) 0.5 Baso % (Auto) 1.1 Neut # (Auto) 8.0 H Lymph # (Auto) 3.1 [place] # (Auto) 1.3 H Eos # (Auto) 0.1 Baso # (Auto) 0.1 Retic Count 9.0 H D Sodium 143 Potassium 4.3 Chloride 106 Carbon Dioxide 23 Anion Gap 18 BUN 10 Creatinine 0.3 L Est GFR ( Amer) > 60 Est GFR (Non-Af Amer) > 60 Random Glucose 101 Calcium 9.1 Urine Color Urine Clarity Urine pH Ur Specific [place] Urine Protein Urine Glucose (UA) Urine Ketones Urine Blood Urine Nitrate Urine Bilirubin Urine Urobilinogen Ur Leukocyte Esterase Urine RBC (Auto) Urine Microscopic WBC Ur Squamous Epith Cells Urine Bacteria 01/06/18 08:37 WBC RBC Hgb Hct MCV MCH MCHC RDW Plt Count MPV Neut % (Auto) Lymph % (Auto) [place] % (Auto) Eos % (Auto) Baso % (Auto) Neut # (Auto) Lymph # (Auto) [place] # (Auto) Eos # (Auto) Baso # (Auto) Retic Count Sodium Potassium Chloride Carbon Dioxide Anion Gap BUN Creatinine Est GFR ( Amer) Est GFR (Non-Af Amer) Random Glucose Calcium Urine Color Yellow Urine Clarity Clear Urine pH 7.0 Ur Specific [place] 1.009 Urine Protein Negative Urine Glucose (UA) Neg Urine Ketones Negative Urine Blood Negative Urine Nitrate Negative Urine Bilirubin Negative Urine Urobilinogen 0.2-1.0 Ur Leukocyte Esterase Mod Urine RBC (Auto) 3 Urine Microscopic WBC 3 Ur Squamous Epith Cells 2 Urine Bacteria Rare Assessment & Plan - Assessment and Plan (Free Text) Assessment: 22 yo Female with PMH of Sickle Cell disease admitted due to sickle pain crisis . At time of evaluation no transfusion or antibiotics needed. Plan: 1- Sickle pain crisis: - Admit to Med/ surg - Regular diet - IVF @ 150cc/hr - Morphine 4 mg PRN for pain - c/w Folic Acid 1 mg daily - Hydroxyurea 1500 mg daily - Heme/Onc Consult placed: Dr Lucas - H/H 8.6/24.2; RC 9.0 2- DVT prophyalxis - Heparin 5000 units SC BID
[2018-01-06] MEDS: Sodium Chloride 0.9% 1,000 ML IV SCH ×4 (12:54→23:29)
[2018-01-07 00:44] VITALS: O2SAT 97
[2018-01-07 08:31] LABS: ALBUMIN 3.8 g/dL (3.5-5.0); ALT/SGPT 50 U/L (9-52); AST/SGOT 76 U/L (14-36); BLOOD UREA NITROGEN 7 mg/dl (7-17); CALCIUM 8.7 mg/dL (8.4-10.2); GFR AFRICAN-AMERICAN > 60; GFR NON-AFRICAN AMERICAN > 60
[2018-01-07 08:41] VITALS: BP 94/57; PULSE 80; RESP 20; TEMP 97.8
[2018-01-07 09:09] LABS: BASO # 0.1 K/uL (0.0-0.2); BASO % 0.9 % (0.0-2.0); EOS # 0.2 K/uL (0.0-0.7); EOS % 2.2 % (0.0-4.0); HEMOGLOBIN 8.4 g/dL (12.0-16.0); LYMPH # 4.3 K/uL (1.0-4.3); MEAN CORPUSCULAR HGB CONC 36.8 g/dL (33.0-37.0); MEAN PLATELET VOLUME 8.5 fl (7.2-11.7); MONO # 1.1 K/uL (0.0-0.8); MONO % 13.9 % (0.0-10.0); NEUT # 2.5 K/uL (1.8-7.0); NRBC % 9.2 % (0.0-0.0); WHITE BLOOD COUNT 8.2 K/uL (4.8-10.8)
[2018-01-07] MEDS: Sodium Chloride 0.9% 1,000 ML IV SCH ×3 (09:26→11:12)
--- NOTE | 2018-01-07 11:57 | CP.PCM.DIS ---
Provider - Provider Date of Admission: 01/06/18 09:28 Attending physician: Rosalind Davis MD Time Spent in preparation of Discharge (in minutes): 30 Diagnosis - Discharge Diagnosis (1) Back pain Status: Resolved Hospital Course - Lab Results Lab Results: Most Recent Lab Values WBC 8.2 K/uL (4.8-10.8) 01/07/18 06:00 RBC 2.00 Mil/uL (3.80-5.20) L 01/07/18 06:00 Hgb 8.4 g/dL (12.0-16.0) L 01/07/18 06:00 Hct 22.8 % (34.0-47.0) L 01/07/18 06:00 MCV 114.0 fl (81.0-99.0) H 01/07/18 06:00 MCH 42.0 pg (27.0-31.0) H 01/07/18 06:00 MCHC 36.8 g/dL (33.0-37.0) 01/07/18 06:00 RDW 21.0 % (11.5-14.5) H 01/07/18 06:00 Plt Count 283 K/uL (130-400) 01/07/18 06:00 MPV 8.5 fl (7.2-11.7) 01/07/18 06:00 Neut % (Auto) 31.0 % (50.0-75.0) L 01/07/18 06:00 Lymph % (Auto) 52.0 % (20.0-40.0) H 01/07/18 06:00 [place] % (Auto) 13.9 % (0.0-10.0) H 01/07/18 06:00 Eos % (Auto) 2.2 % (0.0-4.0) 01/07/18 06:00 Baso % (Auto) 0.9 % (0.0-2.0) 01/07/18 06:00 Neut # (Auto) 2.5 K/uL (1.8-7.0) 01/07/18 06:00 Lymph # (Auto) 4.3 K/uL (1.0-4.3) 01/07/18 06:00 [place] # (Auto) 1.1 K/uL (0.0-0.8) H 01/07/18 06:00 Eos # (Auto) 0.2 K/uL (0.0-0.7) 01/07/18 06:00 Baso # (Auto) 0.1 K/uL (0.0-0.2) 01/07/18 06:00 Retic Count 9.0 % (0.5-1.5) H D 01/06/18 05:30 Sodium 143 mmol/l (132-148) 01/07/18 06:00 Potassium 4.4 MMOL/L (3.6-5.0) 01/07/18 06:00 Chloride 106 mmol/L (98-107) 01/07/18 06:00 Carbon Dioxide 24 mmol/L (22-30) 01/07/18 06:00 Anion Gap 17 (10-20) 01/07/18 06:00 BUN 7 mg/dl (7-17) 01/07/18 06:00 Creatinine 0.4 mg/dl (0.7-1.2) L 01/07/18 06:00 Est GFR ( Amer) > 60 01/07/18 06:00 Est GFR (Non-Af Amer) > 60 01/07/18 06:00 Random Glucose 92 mg/dL (65-105) 01/07/18 06:00 Calcium 8.7 mg/dL (8.4-10.2) 01/07/18 06:00 Total Bilirubin 4.5 mg/dl (0.2-1.3) H 01/07/18 06:00 AST 76 U/L (14-36) H D 01/07/18 06:00 ALT 50 U/L (9-52) 01/07/18 06:00 Alkaline Phosphatase 94 U/L (38-126) 01/07/18 06:00 Total Protein 7.7 G/DL (6.3-8.2) 01/07/18 06:00 Albumin 3.8 g/dL (3.5-5.0) 01/07/18 06:00 Globulin 3.9 gm/dL (2.2-3.9) 01/07/18 06:00 Albumin/Globulin Ratio 1.0 (1.0-2.1) 01/07/18 06:00 Urine Color Yellow (YELLOW) 01/06/18 08:37 Urine Clarity Clear (Clear) 01/06/18 08:37 Urine pH 7.0 (5.0-8.0) 01/06/18 08:37 Ur Specific [place] 1.009 (1.003-1.030) 01/06/18 08:37 Urine Protein Negative mg/dL (NEGATIVE) 01/06/18 08:37 Urine Glucose (UA) Neg mg/dL (Normal) 01/06/18 08:37 Urine Ketones Negative mg/dL (NEGATIVE) 01/06/18 08:37 Urine Blood Negative (NEGATIVE) 01/06/18 08:37 Urine Nitrate Negative (NEGATIVE) 01/06/18 08:37 Urine Bilirubin Negative (NEGATIVE) 01/06/18 08:37 Urine Urobilinogen 0.2-1.0 mg/dL (0.2-1.0) 01/06/18 08:37 Ur Leukocyte Esterase Mod [place]/uL (Negative) 01/06/18 08:37 Urine RBC (Auto) 3 /hpf (0-3) 01/06/18 08:37 Urine Microscopic WBC 3 /hpf (0-5) 01/06/18 08:37 Ur Squamous Epith Cells 2 /hpf (0-5) 01/06/18 08:37 Urine Bacteria Rare (<OCC) 01/06/18 08:37 - Hospital Course Hospital Course: 22 yo F with PMH of sickle cell disease admitted yesterday due to back pain and bilateral leg pain which she states is her typical pain from sickle cell. Patient had previous hospitalizations for similar episodes. She received pain management, IV fluids. Hemoglobin stable 8.4. Retic count 9.0. Patient condition improved and was discharged home safely. Patient to call next week for f/u appt at [facility], advised f/u with Dr Lucas. Patient c/w home medications, scripts provided. Discharge Exam - Head Exam Head Exam: NORMAL INSPECTION - Eye Exam Eye Exam: EOMI, PERRL, Scleral icterus - ENT Exam ENT Exam: Mucous Membranes Moist - Respiratory Exam Respiratory Exam: Clear to PA & Lateral, NORMAL BREATHING PATTERN. absent: Rales, Wheezes - Cardiovascular Exam Cardiovascular Exam: REGULAR RHYTHM, +S1, +S2. absent: Tachycardia - GI/Abdominal Exam GI & Abdominal Exam: Normal Bowel Sounds, Soft. absent: Distended, Tenderness - Neurological Exam Neurological exam: Alert, CN II-XII Intact, Oriented x3 - Skin Skin Exam: Dry, Intact, Warm Discharge Plan - Discharge Medications Prescriptions: Folic Acid 1 mg PO DAILY 30 Days #30 tab Hydroxyurea [Hydrea] 500 mg PO Q8 30 Days #90 cap - Follow Up Plan Condition: FAIR Disposition: HOME/ ROUTINE Instructions: Sickle Cell Disease (DC), Back Pain (GEN) Additional Instructions: Please call to confirm f/u appt at [facility] in next week. f/u with Dr Lucas advised c/w folic acid 1 mg daily c/w hydroxyurea 1500 mg daily. Referrals: [facility] [place] [Outside] Robert Lucas MD [Staff Provider] -
== END 2018-01-07 13:22 | disposition home or self-care (01) ==
LOC: H.ER 04:43 → H.ERHOLD 09:28 → H.MEDSURG1 15:48
PROVIDERS: ADMIT Family Medicine Geriatric Medicine; ATTEND Family Medicine Geriatric Medicine
DX: D57.00 Hb-SS disease with crisis, unspecified (principal); J45.909 Unspecified asthma, uncomplicated; Z90.49 Acquired absence of other specified parts of digestive tract
CPT/HCPCS: 36415; 71045; 80048; 80053; 81003; 81025; 85025; 85044; 93005; 96361; 96372; 96374; 96376; 99285; G0378; J1644; J2270; J7040

== ENCOUNTER 2018-05-18 18:07 | Inpatient (IN) | payer SELFPAY ==
[2018-05-18 18:07] VITALS: BMI 25.6
[2018-05-18] MEDS ORDERED: Sodium Chloride 0.9% 1,000 ML IV STA ×2 (18:28→20:40)
--- NOTE | 2018-05-18 18:38 | ED PDOC ---
HPI: Back Time Seen by Provider: 05/18/18 18:19 Chief Complaint (Nursing): Back Pain Chief Complaint (Provider): Back Pain History Per: Patient History/Exam Limitations: no limitations Onset/Duration Of Symptoms: Days (x1), Gradual Current Symptoms Are (Timing): Still Present Quality Of Discomfort: "Pain" Severity: Severe Previous Symptoms: Other (Sickle Cell Crisis) Additional Complaint(s): 22 y/o female with a PMHx of asthma and sickle cell disease presents to the ED complaining of severe back pain that radiates down to both legs, gradually worsening since onset. Patient states pain is similar to previous of sickle cell crisis that have been triggered by menses in the past. Patient began her menses 2 days ago. Patient reports she is complaint with medications for sickle cell disease. Denies fever, chest pain, nausea, vomiting and abdominal pain. PMD: [facility] Past Medical History Reviewed: Historical Data, Nursing Documentation, Vital Signs Vital Signs: Last Vital Signs Temp 98.0 F 05/18/18 18:12 Pulse 87 05/18/18 18:12 Resp 18 05/18/18 18:12 BP 114/77 05/18/18 18:12 Pulse Ox 97 05/18/18 18:12 - Medical History PMH: Asthma, Sickle Cell Disease Denies: Anemia, Atrial Fibrillation, Bronchitis, CAD, Cardia Arrhythmia, CHF , COPD, Emphysema, HIV, HTN, Hypercholesterolemia, Mitral Valve Prolapse, Peripheral Edema, Pneumonia, Pulmonary Embolism, Chronic Kidney Disease, Sleep Apnea - Surgical History Surgical History: Cholecystectomy (At age 11), Tonsillectomy Denies: Pacemaker Other surgeries: Adenoidectomy - Family History Family History: States: Other Other Family History: Sickle Cell Disease - Social History Current smoker - smoking cessation education provided: No Alcohol: None Drugs: Denies - Home Medications Home Medications: Ambulatory Orders Medication Instructions Recorded Hydroxyurea [Hydrea] 1,500 mg PO DAILY 30 Days cap 11/27/17 Folic Acid 1 mg PO DAILY 30 Days #30 tab 01/07/18 - Allergies Allergies/Adverse Reactions: Allergies Allergy/AdvReac Type Severity Reaction Status Date / Time No Known Allergies Allergy Unverified 04/15/15 18:22 Review of Systems ROS Statement: Except As Marked, All Systems Reviewed And Found Negative (as per HPI) Constitutional: Negative for: Fever Cardiovascular: Negative for: Chest Pain Gastrointestinal: Negative for: Nausea, Vomiting, Abdominal Pain Musculoskeletal: Positive for: Back Pain, Leg Pain (bilateral ) Physical Exam - Reviewed Nursing Documentation Reviewed: Yes Vital Signs Reviewed: Yes - Physical Exam Appears: Positive for: Uncomfortable, In Acute Distress (PAINFUL) Skin: Positive for: Warm, Dry, Pallor (Mild ) Eye Exam: Positive for: PERRL, Scleral icterus ENT: Negative for: Pharyngeal Erythema, Tonsillar Exudate Neck: Positive for: Painless ROM, Supple Cardiovascular/Chest: Positive for: Regular Rate, Rhythm. Negative for: Murmur Respiratory: Positive for: Normal Breath Sounds. Negative for: Respiratory Distress Gastrointestinal/Abdominal: Positive for: Bowel Sounds, Soft. Negative for: Tenderness, Mass, Distended, Guarding Back: Positive for: Normal Inspection. Negative for: Vertebral Tenderness Extremity: Positive for: Normal ROM (Full ROM in the bilateral lower extremities ), Other (Negative Straight Leg Raise testing. 5/5 strength in the bilateral lower extremities) Lymphatic: Negative for: Adenopathy Neurologic/Psych: Positive for: Alert. Negative for: Motor/Sensory Deficits - Laboratory Results Result Diagrams: 05/18/18 18:39 05/18/18 18:39 - ECG O2 Sat by Pulse Oximetry: 97 (RA) Pulse Ox Interpretation: Normal Medical Decision Making Medical Decision Making: Time: 1832 Impression: Sickle Cell Crisis Plan: -- Type and Screen -- CMP -- ED Urine -- ED Urine Dipstick -- CBC with Differentials -- Reticulocyte Count -- Morphine 4 mg IVP -- Sodium Chloride IV 1000 mls/hr -- Toradol 30 mg IV -- IV Insertion Time: 1929 -- Patient reports she is currently feeling better and rates the pain at a 3/ 10. However, patient continues to appear uncomfortable. Patient is eager to go home but was advised to stay for observation in the ER for possible reoccurrence of the pain. Time: 2099 -- Patient has persistent pain despite morphine and fluids. Patient will need hospitalization for sickle cell crisis. -- Discussed with Dr. Webster, family practice resident, for hospitalization. Scribe Attestation: Documented by Silver York acting as a scribe for Dr. Carol Torres MD. Provider Scribe Attestation: All medical record entries made by the Scribe were at my direction and personally dictated by me. I have reviewed the chart and agree that the record accurately reflects my personal performance of the history, physical exam, medical decision making, and the department course for this patient. I have also personally directed, reviewed, and agree with the discharge instructions and disposition. Disposition - Clinical Impression Clinical Impression: Sickle cell crisis, Intractable pain Counseled Patient/Family Regarding: Studies Performed, Diagnosis - Disposition Disposition Time: 21:20 Condition: FAIR - Pt Status Changed To: Hospital Disposition Of: Observation - POA Present On Arrival: None
[2018-05-18] MEDS ORDERED: Morphine 4 MG/ML VIAL ONE ×2 (18:43→20:42)
[2018-05-18 18:49] LABS: BASO # 0.1 K/uL (0.0-0.2); BASO % 0.7 % (0.0-2.0); EOS # 0.1 K/uL (0.0-0.7); EOS % 0.8 % (0.0-4.0); HEMOGLOBIN 9.2 g/dL (12.0-16.0); LYMPH # 4.2 K/uL (1.0-4.3); MEAN CELL VOLUME 115.9 fl (81.0-99.0); MEAN CORPUSCULAR HEMOGLOBIN 41.7 pg (27.0-31.0); MONO # 1.2 K/uL (0.0-0.8); MONO % 7.7 % (0.0-10.0); NEUT # 10.4 K/uL (1.8-7.0); NEUT % 64.8 % (50.0-75.0); NRBC % 4.7 % (0.0-0.0); RBC 2.2 Mil/uL (3.80-5.20); RED CELL DISTRIBUTION WIDTH 19.4 % (11.5-14.5)
[2018-05-18 18:56] LABS: ALB/GLOB RATIO 1.1 (1.0-2.1); ALBUMIN 4.4 g/dL (3.5-5.0); ALT/SGPT 62 U/L (9-52); AST/SGOT 68 U/L (14-36); BLOOD UREA NITROGEN 11 mg/dl (7-17); CALCIUM 9.3 mg/dL (8.4-10.2); GFR NON-AFRICAN AMERICAN > 60
--- NOTE | 2018-05-18 22:18 | CP.PCM.HP ---
History of Present Illness - History of Present Illness History of Present Illness: 22 yo ,f, PMhx/o sickle cell disease, Asthma presents to ED c/o back pain started today in the afternoon 2 pm while walking at work, sudden, constant, 10/ 10 intensity, radiated down to both legs, not associated symptoms. Patient report to be on her menses started 2 days ago, no heavy bleeding, no usual back pain during menses but states she had sickle cell crisis in the past triggered by menses. She denies fever, n,v,abd pain, dysuria, urgency, chest pain, SOB, headache, dizziness, focal motor weakness. Patient reports has not had f/u hem-on after last hospital discharge. On evaluation patient with mother in ED, reports pain partially alleviated with morphine but it persists. Vital normal O2 sat 96 ( while on pain). No respiratory distress PMD: [facility] last visit 08/[address] Val Hyde. Missed apt. will have apt PMH: Sickle Cell Disease, Asthma (last crisis when child) Meds: Hydroxyurea 500 mg Q8, Folic acid 1 mg daily PSH: Cholecystectomy, adenoidectomy and tonsilectomy when child SHx: Denies smoking, alcohol, or drugs ALL: NKDA LMP: Code status: full code Next of kin: Tomas very ED course VS: normal PE: Low back pain. No Lumbar spine TD. No CVAT. Murmur SS 2/6 left sternal border not radiated . Labs: CBC: 16.0>9.2<275 ret count: 9.2 total kristi: 4.9 AST/ALT:68/62 urine dip : nl except blood.(menses) Urine preg neg. Imaging: CXR: no infiltrates as interpretated for me. Meds: Morphine 4 mg IVP -- Sodium Chloride IV 1000 mls/hr -- Toradol 30 mg IV Present on Admission - Present on Admission Any Indicators Present on Admission: No History of DVT/PE: No History of Uncontrolled Diabetes: No Urinary Catheter: No Decubitus Ulcer Present: No Review of Systems - Review of Systems All systems: reviewed and no additional remarkable complaints except - Musculoskeletal Musculoskeletal: Back Pain Past Patient History - Past Medical History & Family History Past Medical History?: Yes - Past Social History Alcohol: None Drugs: Denies - CARDIAC Hx Atrial Fibrillation: No Hx Cardia Arrhythmia: No Hx Congestive Heart Failure: No Hx Hypercholesterolemia: No Hx Hypertension: No Hx Mitral Valve Prolapse: No Hx Pacemaker: No Hx Peripheral Edema: No - PULMONARY Hx Asthma: Yes Hx Bronchitis: No Hx Chronic Obstructive Pulmonary Disease (COPD): No Hx Emphysema: No Hx Pneumonia: No Hx Pulmonary Embolism: No Hx Sleep Apnea: No - NEUROLOGICAL Hx Neurological Disorder: No - HEENT Hx HEENT Problems: No - RENAL Hx Chronic Kidney Disease: No - ENDOCRINE/METABOLIC Hx Endocrine Disorders: No - HEMATOLOGICAL/ONCOLOGICAL Hx Anemia: No Hx Human Immunodeficiency Virus (HIV): No Hx Sickle Cell Disease: Yes - INTEGUMENTARY Hx Dermatological Problems: No - MUSCULOSKELETAL/RHEUMATOLOGICAL Hx Falls: No - GASTROINTESTINAL Hx Gastrointestinal Disorders: No - GENITOURINARY/GYNECOLOGICAL Hx Genitourinary Disorders: No - PSYCHIATRIC Hx Psychophysiologic Disorder: No Hx Substance Use: No - SURGICAL HISTORY Hx Cholecystectomy: Yes (At age 11) Hx Tonsillectomy: Yes - ANESTHESIA Hx Anesthesia: Yes Hx Anesthesia Reactions: No Hx Malignant Hyperthermia: No Meds Allergies/Adverse Reactions: Allergies Allergy/AdvReac Type Severity Reaction Status Date / Time No Known Allergies Allergy Unverified 04/15/15 18:22 Physical Exam - Constitutional Appears: Non-toxic, No Acute Distress - Head Exam Head Exam: ATRAUMATIC, NORMOCEPHALIC - Eye Exam Eye Exam: EOMI, Normal appearance, Scleral icterus (mild) - ENT Exam ENT Exam: Mucous Membranes Moist - Neck Exam Neck exam: Positive for: Normal Inspection - Respiratory Exam Respiratory Exam: Clear to Auscultation Bilateral. absent: Rales, Rhonchi, Wheezes - Cardiovascular Exam Cardiovascular Exam: REGULAR RHYTHM, +S1, +S2, Systolic Murmur Additional comments: 2/6 left sternal border not radiated - GI/Abdominal Exam GI & Abdominal Exam: Normal Bowel Sounds, Soft. absent: Guarding, Tenderness - Extremities Exam Extremities exam: Positive for: normal inspection. Negative for: pedal edema, tenderness - Back Exam Back exam: NORMAL INSPECTION, tenderness (minimal Td on palpation sacral region) . absent: CVA tenderness (L), CVA tenderness (R), muscle spasm, paraspinal tenderness - Neurological Exam Neurological exam: Alert, Oriented x3 - Psychiatric Exam Psychiatric exam: Normal Affect, Normal Mood - Skin Skin Exam: Pallor Results - Vital Signs Recent Vital Signs: Last Vital Signs Temp 98.0 F 05/18/18 18:12 Pulse 87 05/18/18 18:12 Resp 18 05/18/18 18:12 BP 114/77 05/18/18 18:12 Pulse Ox 97 05/18/18 21:52 - Labs Result Diagrams: 05/18/18 18:39 05/18/18 18:39 Labs: Laboratory Results - last 24 hr 05/18/18 05/18/18 05/18/18 18:39 18:39 18:39 WBC 16.0 H D RBC 2.20 L Hgb 9.2 L Hct 25.5 L MCV 115.9 H MCH 41.7 H MCHC 36.0 RDW 19.4 H Plt Count 275 MPV 8.0 Neut % (Auto) 64.8 Lymph % (Auto) 26.0 [place] % (Auto) 7.7 Eos % (Auto) 0.8 Baso % (Auto) 0.7 Neut # (Auto) 10.4 H Lymph # (Auto) 4.2 [place] # (Auto) 1.2 H Eos # (Auto) 0.1 Baso # (Auto) 0.1 Retic Count 9.2 H D Sodium 139 Potassium 4.1 Chloride 105 Carbon Dioxide 26 Anion Gap 12 BUN 11 Creatinine 0.4 L Est GFR ( Amer) > 60 Est GFR (Non-Af Amer) > 60 Random Glucose 117 H Calcium 9.3 Total Bilirubin 4.9 H AST 68 H ALT 62 H D Alkaline Phosphatase 108 Total Protein 8.5 H Albumin 4.4 Globulin 4.0 H Albumin/Globulin Ratio 1.1 Blood Type Antibody Screen BBK History Checked 05/18/18 18:39 WBC RBC Hgb Hct MCV MCH MCHC RDW Plt Count MPV Neut % (Auto) Lymph % (Auto) [place] % (Auto) Eos % (Auto) Baso % (Auto) Neut # (Auto) Lymph # (Auto) [place] # (Auto) Eos # (Auto) Baso # (Auto) Retic Count Sodium Potassium Chloride Carbon Dioxide Anion Gap BUN Creatinine Est GFR ( Amer) Est GFR (Non-Af Amer) Random Glucose Calcium Total Bilirubin AST ALT Alkaline Phosphatase Total Protein Albumin Globulin Albumin/Globulin Ratio Blood Type O POSITIVE Antibody Screen Negative BBK History Checked Patient has bt Assessment & Plan - Assessment and Plan (Free Text) Plan: 22 yo ,f, PMhx/o sickle cell disease, Asthma admitted in obs for sickle cell crisis. 1) Sickle pain crisis -with associated lower back pain -s/p toradol, morphine in ED -c/w Pain control toradol 15 mg IV mod, Morphine 4 mg IV sev pain -O2 NC as needed if O2 sat lower 95 _IV fluids NS 150 ml/h - c/w Folic Acid 1 mg daily - Hydroxyurea 1500 mg daily -Hem-onc Consult suggested 2) Anemia -chronic 2/2 sickle cell disease -hbg 9.2 -f/u CBC -MCV high. f/u folate, vit b 12 3) Asthma -controlled -not on medications 4) Leukocytosis -may be reactive sickle crisis -f/u cbc tomorrow morning. 5) DVT Prophylaxis Lovenox 40 mg sc daily
[2018-05-18] MEDS ORDERED: Morphine 4 MG/ML VIAL IVP PRN (22:26)
[2018-05-18] MEDS: Sodium Chloride 0.9% 1,000 ML IV SCH (23:23)
[2018-05-19] MEDS: Sodium Chloride 0.9% 1,000 ML IV SCH (05:09)
[2018-05-19 06:34] LABS: BILIRUBIN,DIRECT 0.4 mg/ml (0.0-0.4)
[2018-05-19] MEDS ORDERED: HYDROmorphone 1 mg/ml ISec IVP PRN (08:13)
--- NOTE | 2018-05-19 08:48 | CP.PCM.PN ---
Subjective - Date & Time of Evaluation Date of Evaluation: 05/19/18 Time of Evaluation: 08:39 - Subjective Subjective: This is a 22 yrs old female who has a h/o sickle cell disease and was admitted for a painful crisis. Every time she gets her period she gets a crisis with severe low back pain. It gets better after the period is over. I questioned her to see if this isnt just a menstrual pain and not crisis. She says she has had crisis before and this pain is exactly like that. Her hgb is stable, and she did show some sickled cells on the peripheral smear. Her retic count was higher and is now getting down. Pt claims she is compliant with all her medications, hydroxyurea and folic acid.` No other past medical problems except cholecystectomy a few yrs ago. Does not smoke or drink. Objective - Vital Signs/Intake and Output Vital Signs (last 24 hours): Temp Pulse Resp BP Pulse Ox 98.2 F 68 20 120/77 100 05/19/18 07:49 05/19/18 07:49 05/19/18 07:49 05/19/18 07:49 05/19/18 07:49 Intake and Output: 05/19/18 05/19/18 06:59 18:59 Intake Total 1300 Balance 1300 - Medications Medications: Current Medications Acetaminophen (Tylenol 325mg Tab) 650 mg PO Q6 PRN PRN Reason: Pain, Mild (1-3) Acetaminophen (Tylenol 325mg Tab) 650 mg PO Q6 PRN PRN Reason: Fever >100.4 F Enoxaparin Sodium (Lovenox) 40 mg SC DAILY [facility] PRN Reason: Protocol Folic Acid (Folic Acid) 1 mg PO DAILY [facility] Hydromorphone HCl (Dilaudid) 0.5 mg IVP Q4 PRN PRN Reason: Pain, moderate (4-7) Stop: 05/21/18 08:13 Hydromorphone HCl (Dilaudid) 1 mg IVP Q4 PRN PRN Reason: Pain, severe (8-10) Hydroxyurea (Hydrea) 1,500 mg PO DAILY [facility] Sodium Chloride (Sodium Chloride 0.9%) 1,000 mls @ 150 mls/hr IV .Q6H40M [facility] Stop: 05/19/18 22:29 Last Admin: 05/19/18 05:09 Dose: 150 mls/hr Ondansetron HCl (Zofran Inj) 4 mg IVP Q6 PRN PRN Reason: Nausea/Vomiting - Labs Labs: 05/18/18 18:39 05/18/18 18:39 - Additional Findings Additional findings: Physical exam : Alert,awake , in distress because of the back pain. Neck; supple, no adenopathy Chest: clear, no rales or rhonchi Heart; RSR,slight tachycardia,no murmur Abd soft, no mass, no h/s megaly Assessment and Plan - Assessment and Plan (Free Text) Assessment: Impression: sickle cell anemia -painful crisis Plan: Plan; Would continue the hydration , 0analgesic regimen,2 and the hydroxyurea. She seems to do well with the current
[2018-05-19] MEDS: HYDROmorphone 1 mg/ml ISec IVP PRN ×4 (09:02→22:32)
--- NOTE | 2018-05-19 09:34 | RAD ---
Date of service: 05/18/2018 HISTORY: sickle cell crisis COMPARISON: No prior. FINDINGS: LUNGS: No active pulmonary disease. PLEURA: No significant pleural effusion identified, no pneumothorax apparent. CARDIOVASCULAR: Normal. OSSEOUS STRUCTURES: No significant abnormalities. VISUALIZED UPPER ABDOMEN: Normal. OTHER FINDINGS: None. IMPRESSION: No active disease.
--- NOTE | 2018-05-19 09:42 | CP.PCM.PN ---
Subjective - Date & Time of Evaluation Date of Evaluation: 05/19/18 Time of Evaluation: 08:30 - Subjective Subjective: No acute overnight events. Pt endorsing a lot of pain in her low back and down her legs. Pain is persistent and uncontrolled, mild improvement with pain meds. Hx of similar pain in previous crisis. Objective - Vital Signs/Intake and Output Vital Signs (last 24 hours): Temp Pulse Resp BP Pulse Ox 98.2 F 68 20 120/77 100 05/19/18 07:49 05/19/18 07:49 05/19/18 07:49 05/19/18 07:49 05/19/18 07:49 Intake and Output: 05/19/18 05/19/18 06:59 18:59 Intake Total 1300 Balance 1300 - Medications Medications: Current Medications Acetaminophen (Tylenol 325mg Tab) 650 mg PO Q6 PRN PRN Reason: Pain, Mild (1-3) Acetaminophen (Tylenol 325mg Tab) 650 mg PO Q6 PRN PRN Reason: Fever >100.4 F Enoxaparin Sodium (Lovenox) 40 mg SC DAILY [facility] PRN Reason: Protocol Folic Acid (Folic Acid) 1 mg PO DAILY [facility] Hydromorphone HCl (Dilaudid) 0.5 mg IVP Q4 PRN PRN Reason: Pain, moderate (4-7) Stop: 05/21/18 08:13 Hydromorphone HCl (Dilaudid) 1 mg IVP Q4 PRN PRN Reason: Pain, severe (8-10) Last Admin: 05/19/18 09:02 Dose: 1 mg Hydroxyurea (Hydrea) 1,500 mg PO DAILY [facility] Sodium Chloride (Sodium Chloride 0.9%) 1,000 mls @ 150 mls/hr IV .Q6H40M [facility] Stop: 05/19/18 22:29 Last Admin: 05/19/18 05:09 Dose: 150 mls/hr Ondansetron HCl (Zofran Inj) 4 mg IVP Q6 PRN PRN Reason: Nausea/Vomiting - Labs Labs: 05/18/18 18:39 05/18/18 18:39 - Constitutional Appears: In Acute Distress (looks uncomfortable ) - Eye Exam Eye Exam: EOMI, Scleral icterus - ENT Exam ENT Exam: Mucous Membranes Moist - Respiratory Exam Respiratory Exam: Clear to Ausculation Bilateral, NORMAL BREATHING PATTERN. absent: Chest Wall Tenderness, Rales, Wheezes - Cardiovascular Exam Cardiovascular Exam: REGULAR RHYTHM, +S1, +S2, Murmur (systolic murmur ) - GI/Abdominal Exam GI & Abdominal Exam: Soft, Normal Bowel Sounds. absent: Tenderness - Extremities Exam Extremities Exam: Normal Inspection. absent: Calf Tenderness, Pedal Edema Additional comments: straight leg test neg b/l - Back Exam Back Exam: NORMAL INSPECTION - Neurological Exam Neurological Exam: Alert, Awake - Skin Skin Exam: Normal Color, Warm Assessment and Plan - Assessment and Plan (Free Text) Assessment: Assessment/Plan: 22 YO Female PMHx of sickle cell disease, hx of asthma as a child is admitted for sickle cell crisis. Sickle pain crisis -acute on chronic -heptoglobin low, retic high, LDH is high -Pain management: Dilaudid 1mg and 0.5mg -continue IVF -O2 via NC for O2 <95% -c/w Folic Acid 1 mg and Hydroxyurea 1500 mg daily -Hem/onc on board; cont current management Leukocytosis -afebrile, VS stable -likely 2/2 to reactive sickle crisis -CXR neg -UA and Ucx pending. Bcx if fever -Hem/onc on board -cont to monitor Macrocytic Anemia -likely acute on chronic -folate, and vit b 12 normal -cont to monitor Hx of childhood Asthma -controlled -not on medications DVT Prophylaxis Lovenox 40 mg sc daily
[2018-05-19] MEDS: Enoxaparin 40 mg Syringe SC SCH (11:05)
[2018-05-19 12:19] LABS: BASO # 0.3 K/uL (0.0-0.2); BASO % 1.5 % (0.0-2.0); EOS # 0.1 K/uL (0.0-0.7); EOS % 0.4 % (0.0-4.0); HEMOGLOBIN 8.7 g/dL (12.0-16.0); LYMPH # 2.8 K/uL (1.0-4.3); LYMPH % 16.4 % (20.0-40.0); MEAN CELL VOLUME 117.5 fl (81.0-99.0); MEAN CORPUSCULAR HEMOGLOBIN 41.1 pg (27.0-31.0); MEAN CORPUSCULAR HGB CONC 34.9 g/dL (33.0-37.0); MEAN PLATELET VOLUME 8.9 fl (7.2-11.7); MONO # 1.7 K/uL (0.0-0.8); MONO % 9.9 % (0.0-10.0); NEUT # 12.2 K/uL (1.8-7.0); NEUT % 71.8 % (50.0-75.0); NRBC % 6.8 % (0.0-0.0); RBC 2.12 Mil/uL (3.80-5.20); RED CELL DISTRIBUTION WIDTH 19.3 % (11.5-14.5); WHITE BLOOD COUNT 16.9 K/uL (4.8-10.8)
[2018-05-19 13:04] LABS: ALB/GLOB RATIO 1.1 (1.0-2.1); ALBUMIN 4.1 g/dL (3.5-5.0); ALT/SGPT 56 U/L (9-52); AST/SGOT 74 U/L (14-36); BLOOD UREA NITROGEN 5 mg/dl (7-17); CALCIUM 8.9 mg/dL (8.4-10.2); GFR NON-AFRICAN AMERICAN > 60
[2018-05-19 13:19] LABS: FOLATE > 20.0 ng/mL
[2018-05-19] MEDS: Lidocaine 5% Patch TD SCH (18:08)
[2018-05-20] MEDS: HYDROmorphone 1 mg/ml ISec IVP PRN ×5 (02:30→18:24)
[2018-05-20 06:57] LABS: SQUAMOUS EPITHIAL 3 /hpf (0-5); URINE BILIRUBIN NEGATIVE (NEGATIVE); URINE BLOOD NEGATIVE (NEGATIVE); URINE CLARITY CLEAR (Clear); URINE COLOR STRAW (YELLOW); URINE GLUCOSE (UA) NEG (Normal); URINE LEUKOCYTE ESTERASE NEG Leu/uL (Negative); URINE PROTEIN NEGATIVE (NEGATIVE); URINE UROBILINOGEN 0.2-1.0 mg/dL (0.2-1.0)
[2018-05-20 07:27] LABS: BASO # 0.1 K/uL (0.0-0.2); BASO % 0.6 % (0.0-2.0); HEMOGLOBIN 8.5 g/dL (12.0-16.0); LYMPH # 2.3 K/uL (1.0-4.3); LYMPH % 22.7 % (20.0-40.0); MEAN CORPUSCULAR HEMOGLOBIN 41.1 pg (27.0-31.0); MEAN CORPUSCULAR HGB CONC 35.2 g/dL (33.0-37.0); MEAN PLATELET VOLUME 8.6 fl (7.2-11.7); MONO # 1.6 K/uL (0.0-0.8); MONO % 15.5 % (0.0-10.0); NEUT # 6.3 K/uL (1.8-7.0); NEUT % 61.2 % (50.0-75.0); NRBC % 14.8 % (0.0-0.0); RBC 2.08 Mil/uL (3.80-5.20); RED CELL DISTRIBUTION WIDTH 19.5 % (11.5-14.5); WHITE BLOOD COUNT 10.3 K/uL (4.8-10.8)
[2018-05-20 07:47] LABS: ALB/GLOB RATIO 1.1 (1.0-2.1); ALBUMIN 4.1 g/dL (3.5-5.0); ALT/SGPT 43 U/L (9-52); AST/SGOT 73 U/L (14-36); BLOOD UREA NITROGEN 4 mg/dl (7-17); CALCIUM 8.9 mg/dL (8.4-10.2); GFR NON-AFRICAN AMERICAN > 60
[2018-05-20] MEDS ORDERED: Sodium Chloride 0.9% 1,000 ML IV SCH ×2 (08:45→17:30)
[2018-05-20] MEDS: Lidocaine 5% Patch TD SCH (08:50)
[2018-05-20] MEDS: Enoxaparin 40 mg Syringe SC SCH (08:52)
--- NOTE | 2018-05-20 09:21 | CP.PCM.PN ---
Subjective - Date & Time of Evaluation Date of Evaluation: 05/20/18 Time of Evaluation: :18 - Subjective Subjective: No acute overnight events. Pt still endorsing pain, but better controlled with pain meds. Back pain has improved, continues to have pain in her legs/thighs now. Denies chills/fever overnight. Objective - Vital Signs/Intake and Output Vital Signs (last 24 hours): Temp Pulse Resp BP Pulse Ox 98.3 F 92 H 20 115/76 93 L 05/20/18 08:25 05/20/18 08:25 05/20/18 08:25 05/20/18 08:25 05/20/18 08:25 - Medications Medications: Current Medications Acetaminophen (Tylenol 325mg Tab) 650 mg PO Q6 PRN PRN Reason: Pain, Mild (1-3) Last Admin: 05/20/18 08:55 Dose: 650 mg Acetaminophen (Tylenol 325mg Tab) 650 mg PO Q6 PRN PRN Reason: Fever >100.4 F Enoxaparin Sodium (Lovenox) 40 mg SC DAILY [facility] PRN Reason: Protocol Last Admin: 05/20/18 08:52 Dose: 40 mg Folic Acid (Folic Acid) 1 mg PO DAILY [facility] Last Admin: 05/20/18 08:52 Dose: 1 mg Hydromorphone HCl (Dilaudid) 1 mg IVP Q4 PRN PRN Reason: Pain, severe (8-10) Last Admin: 05/20/18 06:27 Dose: 1 mg Hydromorphone HCl (Dilaudid) 0.5 mg IVP Q4 PRN PRN Reason: Pain, moderate (4-7) Stop: 05/21/18 08:13 Last Admin: 05/19/18 11:30 Dose: 0.5 mg Hydroxyurea (Hydrea) 1,500 mg PO DAILY [facility] Last Admin: 05/20/18 08:52 Dose: 1,500 mg Sodium Chloride (Sodium Chloride 0.9%) 1,000 mls @ 250 mls/hr IV .Q4H [facility] Stop: 05/20/18 12:44 Last Admin: 05/20/18 08:48 Dose: 250 mls/hr Lidocaine (Lidoderm) 1 ea TD DAILY [facility] Last Admin: 05/20/18 08:50 Dose: 1 ea Ondansetron HCl (Zofran Inj) 4 mg IVP Q6 PRN PRN Reason: Nausea/Vomiting - Labs Labs: 05/20/18 05:30 05/20/18 05:30 - Constitutional Appears: No Acute Distress, Other (uncomfortable ) - Eye Exam Eye Exam: Scleral icterus - ENT Exam ENT Exam: Mucous Membranes Moist - Respiratory Exam Respiratory Exam: Clear to Ausculation Bilateral. absent: Wheezes - Cardiovascular Exam Cardiovascular Exam: REGULAR RHYTHM, +S1, +S2 - GI/Abdominal Exam GI & Abdominal Exam: Soft, Normal Bowel Sounds. absent: Tenderness - Extremities Exam Extremities Exam: absent: Calf Tenderness, Joint Swelling, Pedal Edema Additional comments: no erythema or edema noted in R thigh. +tenderness - Back Exam Back Exam: NORMAL INSPECTION - Neurological Exam Neurological Exam: Alert, Awake - Psychiatric Exam Psychiatric exam: Normal Mood Assessment and Plan - Assessment and Plan (Free Text) Assessment: Assessment/Plan: 22 YO Female PMHx of sickle cell disease, hx of asthma as a child is admitted for sickle cell crisis. Sickle pain crisis -acute on chronic -heptoglobin low, retic high, LDH is high -Pain management: Dilaudid 1mg and 0.5mg -continue IVF -O2 via NC for O2 <95% -c/w Folic Acid 1 mg and Hydroxyurea 1500 mg daily -Hem/onc on board; cont current management Leukocytosis -resolved -afebrile, VS stable -likely 2/2 to reactive sickle crisis -CXR neg -UA neg, Ucx pending. Bcx if fever -Hem/onc on board -cont to monitor Macrocytic Anemia -likely acute on chronic -folate, and vit b 12 normal -cont to monitor Hx of childhood Asthma -controlled -not on medications DVT Prophylaxis Lovenox 40 mg sc daily
[2018-05-20 10:41] LABS: MEAN CELL VOLUME 116.8 fl (81.0-99.0)
--- NOTE | 2018-05-20 10:45 | CP.PCM.PN ---
Subjective - Date & Time of Evaluation Date of Evaluation: 05/20/18 Time of Evaluation: 10:42 - Subjective Subjective: Today pt seems much better. Her retic is high , haptoglobin low ,and bilirubin a little elevated. Her periods are done and she claims she no longer has a lot of pain. . Will repeat cbc and cmp tomorrow. Objective - Vital Signs/Intake and Output Vital Signs (last 24 hours): Temp Pulse Resp BP Pulse Ox 98.3 F 92 H 20 115/76 93 L 05/20/18 08:25 05/20/18 08:25 05/20/18 08:25 05/20/18 08:25 05/20/18 08:25 - Medications Medications: Current Medications Acetaminophen (Tylenol 325mg Tab) 650 mg PO Q6 PRN PRN Reason: Pain, Mild (1-3) Last Admin: 05/20/18 08:55 Dose: 650 mg Acetaminophen (Tylenol 325mg Tab) 650 mg PO Q6 PRN PRN Reason: Fever >100.4 F Enoxaparin Sodium (Lovenox) 40 mg SC DAILY [facility] PRN Reason: Protocol Last Admin: 05/20/18 08:52 Dose: 40 mg Folic Acid (Folic Acid) 1 mg PO DAILY [facility] Last Admin: 05/20/18 08:52 Dose: 1 mg Hydromorphone HCl (Dilaudid) 1 mg IVP Q4 PRN PRN Reason: Pain, severe (8-10) Last Admin: 05/20/18 10:40 Dose: 1 mg Hydromorphone HCl (Dilaudid) 0.5 mg IVP Q4 PRN PRN Reason: Pain, moderate (4-7) Stop: 05/21/18 08:13 Last Admin: 05/19/18 11:30 Dose: 0.5 mg Hydroxyurea (Hydrea) 1,500 mg PO DAILY [facility] Last Admin: 05/20/18 08:52 Dose: 1,500 mg Sodium Chloride (Sodium Chloride 0.9%) 1,000 mls @ 250 mls/hr IV .Q4H [facility] Stop: 05/20/18 12:44 Last Admin: 05/20/18 08:48 Dose: 250 mls/hr Lidocaine (Lidoderm) 1 ea TD DAILY [facility] Last Admin: 05/20/18 08:50 Dose: 1 ea Ondansetron HCl (Zofran Inj) 4 mg IVP Q6 PRN PRN Reason: Nausea/Vomiting - Labs Labs: 05/20/18 05:30 05/20/18 05:30
[2018-05-20] MEDS: Sodium Chloride 0.9% 1,000 ML IV SCH (13:10)
[2018-05-20] MEDS ORDERED: HYDROmorphone 1 mg/ml ISec IVP ONE (21:00)
--- NOTE | 2018-05-20 21:10 | CP.PCM.PCO ---
Assessment/Plan - Assessment and Plan (Free Text) Assessment: Pt endorsing severe rt knee pain, pain is rated as a 8-9/10. Skin intact, no erythema or edema noted when compared to L knee. ROM of knee limited by pain. Moving feet, able to planter flex and dorsi flex the feet without mild pain. -XR of the knees -1x dose of Dilaudid given
[2018-05-21] MEDS: HYDROmorphone 1 mg/ml ISec IVP PRN ×3 (01:45→11:04)
[2018-05-21] MEDS: Sodium Chloride 0.9% 1,000 ML IV SCH ×3 (06:45→23:13)
[2018-05-21 07:49] LABS: BASO % 0.2 % (0.0-2.0); EOS % 0.1 % (0.0-4.0); HEMOGLOBIN 8.5 g/dL (12.0-16.0); LYMPH # 2.2 K/uL (1.0-4.3); LYMPH % 16.1 % (20.0-40.0); MEAN CELL VOLUME 116.5 fl (81.0-99.0); MEAN CORPUSCULAR HEMOGLOBIN 42.3 pg (27.0-31.0); MEAN CORPUSCULAR HGB CONC 36.3 g/dL (33.0-37.0); MEAN PLATELET VOLUME 8.1 fl (7.2-11.7); MONO # 1.7 K/uL (0.0-0.8); MONO % 12.5 % (0.0-10.0); NEUT # 9.7 K/uL (1.8-7.0); NEUT % 71.1 % (50.0-75.0); NRBC % 7.6 % (0.0-0.0); RBC 2.01 Mil/uL (3.80-5.20); RED CELL DISTRIBUTION WIDTH 19.3 % (11.5-14.5); WHITE BLOOD COUNT 13.7 K/uL (4.8-10.8)
[2018-05-21 08:00] LABS: ALBUMIN 3.9 g/dL (3.5-5.0); ALT/SGPT 33 U/L (9-52); AST/SGOT 59 U/L (14-36); BLOOD UREA NITROGEN 3 mg/dl (7-17); CALCIUM 8.8 mg/dL (8.4-10.2); GFR NON-AFRICAN AMERICAN > 60
[2018-05-21] MEDS ORDERED: HYDROmorphone 1 mg/ml ISec IVP PRN (08:17)
[2018-05-21] MEDS: Lidocaine 5% Patch TD SCH (09:19)
[2018-05-21] MEDS: Enoxaparin 40 mg Syringe SC SCH (09:20)
--- NOTE | 2018-05-21 09:25 | RAD ---
Date of service: 05/20/2018 PROCEDURE: Right Knee Radiographs. HISTORY: Sickle cell crisis, Rt knee pain COMPARISON: Comparison made with right knee radiographs 11/19/2016 FINDINGS: BONES: Normal. No fracture. JOINTS: Normal. No osteoarthritis. JOINT EFFUSION: None. OTHER FINDINGS: None. IMPRESSION: Normal radiographs of the right knee.
--- NOTE | 2018-05-21 13:49 | CP.PCM.PN ---
Subjective - Date & Time of Evaluation Date of Evaluation: 05/21/18 Time of Evaluation: 13:48 - Subjective Subjective: Patient seen and examined with attending. Overnight events: pain in right knee, XR done. This AM: Still having pain in right knee. XR unremarkable. Lidoderm patch on knee. Still has scleral icterus. She is tolerating diet, has not had BM. Pain control is better today. Able to ambulate. Her sister is bedside. Objective - Vital Signs/Intake and Output Vital Signs (last 24 hours): Temp Pulse Resp BP Pulse Ox 99.3 F 116 H 19 127/79 95 05/21/18 08:25 05/21/18 08:25 05/21/18 08:25 05/21/18 08:25 05/21/18 08:25 - Medications Medications: Current Medications Acetaminophen (Tylenol 325mg Tab) 650 mg PO Q6 PRN PRN Reason: Pain, Mild (1-3) Last Admin: 05/20/18 08:55 Dose: 650 mg Acetaminophen (Tylenol 325mg Tab) 650 mg PO Q6 PRN PRN Reason: Fever >100.4 F Enoxaparin Sodium (Lovenox) 40 mg SC DAILY [facility] PRN Reason: Protocol Last Admin: 05/21/18 09:20 Dose: 40 mg Folic Acid (Folic Acid) 1 mg PO DAILY [facility] Last Admin: 05/21/18 09:20 Dose: 1 mg Hydromorphone HCl (Dilaudid) 1 mg IVP Q4 PRN PRN Reason: Pain, severe (8-10) Last Admin: 05/21/18 11:04 Dose: 1 mg Hydromorphone HCl (Dilaudid) 0.5 mg IVP Q4 PRN PRN Reason: Pain, moderate (4-7) Stop: 05/23/18 08:17 Hydroxyurea (Hydrea) 1,500 mg PO DAILY [facility] Last Admin: 05/21/18 09:20 Dose: 1,500 mg Lidocaine (Lidoderm) 1 ea TD DAILY [facility] Last Admin: 05/21/18 09:19 Dose: 1 ea Ondansetron HCl (Zofran Inj) 4 mg IVP Q6 PRN PRN Reason: Nausea/Vomiting - Labs Labs: 05/21/18 07:20 05/21/18 07:20 - Constitutional Appears: In Acute Distress (secondary to pain) - Eye Exam Eye Exam: Scleral icterus - Respiratory Exam Respiratory Exam: NORMAL BREATHING PATTERN - Cardiovascular Exam Cardiovascular Exam: REGULAR RHYTHM, +S1, +S2 - GI/Abdominal Exam GI & Abdominal Exam: Soft. absent: Distended, Tenderness - Extremities Exam Extremities Exam: Full ROM, Normal Inspection. absent: Joint Swelling, Pedal Edema, Tenderness Additional comments: lidoderm patch on right knee Assessment and Plan - Assessment and Plan (Free Text) Assessment: 22 year old female with PMHx of sickle cell disease admitted for sickle cell crisis, now with knee pain, XR done and unremarkable. #Sickle cell crisis -acute on chronic -heptoglobin low, retic high, LDH remains elevated -Pain management: Dilaudid 1mg and 0.5mg -continue IVF -O2 via NC for O2 <95% -c/w Folic Acid 1 mg and Hydroxyurea 1500 mg daily -Hem/onc on board; cont current management #Leukocytosis -persists, likely 2/2 to reactive sickle crisis, blood culture ordered, urine culture neg -afebrile, VS stable -CXR neg -UA neg -Hem/onc on board -cont to monitor #Macrocytic Anemia -likely acute on chronic -folate, and vit b 12 normal, high retic count -cont to monitor #Hx of asthma in childhood -controlled -not on medications DVT Prophylaxis Lovenox 40 mg sc daily
[2018-05-21 16:06] VITALS: RESP 18
[2018-05-22] MEDS: Sodium Chloride 0.9% 1,000 ML IV SCH ×2 (01:11→09:41)
[2018-05-22 08:14] VITALS: BP 117/77; PULSE 78; TEMP 98.6; O2SAT 97
--- NOTE | 2018-05-22 08:58 | CP.PCM.PN ---
Subjective - Date & Time of Evaluation Date of Evaluation: 05/22/18 Time of Evaluation: 08:58 - Subjective Subjective: No acute overnight events. Pt endorsing R knee pain, improving. Good PO intake not yet ambulating due to pain. Objective - Vital Signs/Intake and Output Vital Signs (last 24 hours): Temp Pulse Resp BP Pulse Ox 98.6 F 78 18 117/77 97 05/22/18 08:13 05/22/18 08:13 05/22/18 08:13 05/22/18 08:13 05/22/18 08:13 - Medications Medications: Current Medications Acetaminophen (Tylenol 325mg Tab) 650 mg PO Q6 PRN PRN Reason: Pain, Mild (1-3) Last Admin: 05/20/18 08:55 Dose: 650 mg Acetaminophen (Tylenol 325mg Tab) 650 mg PO Q6 PRN PRN Reason: Fever >100.4 F Enoxaparin Sodium (Lovenox) 40 mg SC DAILY [facility] PRN Reason: Protocol Last Admin: 05/21/18 09:20 Dose: 40 mg Folic Acid (Folic Acid) 1 mg PO DAILY [facility] Last Admin: 05/21/18 09:20 Dose: 1 mg Hydromorphone HCl (Dilaudid) 0.5 mg IVP Q4 PRN PRN Reason: Pain, moderate (4-7) Stop: 05/23/18 08:17 Hydromorphone HCl (Dilaudid) 1 mg IVP Q4 PRN PRN Reason: Pain, severe (8-10) Last Admin: 05/22/18 05:09 Dose: 1 mg Hydroxyurea (Hydrea) 1,500 mg PO DAILY [facility] Last Admin: 05/21/18 09:20 Dose: 1,500 mg Sodium Chloride (Sodium Chloride 0.9%) 1,000 mls @ 100 mls/hr IV .Q10H [facility] Stop: 05/22/18 14:25 Last Admin: 05/22/18 01:11 Dose: Not Given Lidocaine (Lidoderm) 1 ea TD DAILY [facility] Last Admin: 05/21/18 09:19 Dose: 1 ea Ondansetron HCl (Zofran Inj) 4 mg IVP Q6 PRN PRN Reason: Nausea/Vomiting - Labs Labs: 05/21/18 07:20 05/21/18 07:20 - Constitutional Appears: No Acute Distress - Head Exam Head Exam: NORMAL INSPECTION - Eye Exam Eye Exam: EOMI, Scleral icterus - ENT Exam ENT Exam: Mucous Membranes Moist - Respiratory Exam Respiratory Exam: Clear to Ausculation Bilateral, NORMAL BREATHING PATTERN. absent: Wheezes - Cardiovascular Exam Cardiovascular Exam: REGULAR RHYTHM, +S1, +S2 - GI/Abdominal Exam GI & Abdominal Exam: Soft, Normal Bowel Sounds. absent: Tenderness - Extremities Exam Extremities Exam: absent: Calf Tenderness, Pedal Edema Additional comments: tenderness of R knee join, no erythem, no edema or joint pain. - Back Exam Back Exam: NORMAL INSPECTION. absent: CVA tenderness (L), CVA tenderness (R) - Neurological Exam Neurological Exam: Alert, Awake - Psychiatric Exam Psychiatric exam: Normal Mood - Skin Skin Exam: Normal Color. absent: Pallor Assessment and Plan - Assessment and Plan (Free Text) Assessment: Assessment/Plan: 22 YO Female PMHx of sickle cell disease, hx of asthma as a child is admitted for sickle cell crisis. Sickle pain crisis -acute on chronic -improving, requiring less pain meds -heptoglobin low, retic high, LDH is high -Pain management: requiring less IV meds, will change meds to Dilaudid 0.5 and Morphine 2mg -continue IVF -O2 via NC for O2 <95% -c/w Folic Acid 1 mg and Hydroxyurea 1500 mg daily -Hem/onc on board; cont current management Leukocytosis -improving, remains afebrile -likely 2/2 to reactive sickle crisis -CXR neg, Ucx neg, Bcx no growth 24 hrs -Hem/onc on board -cont to monitor Macrocytic Anemia -likely acute on chronic -folate, and vit b 12 normal -cont to monitor Elevated liver enzymes -improving -likely 2/2 to acute sickle cell crisis -high AST/ALT and T bili on admission -T bili maxed at 6.8, downtrending Hx of childhood Asthma -controlled -not on medications DVT Prophylaxis Lovenox 40 mg sc daily
[2018-05-22] MEDS: Enoxaparin 40 mg Syringe SC SCH (09:39)
[2018-05-22] MEDS: Lidocaine 5% Patch TD SCH (09:40)
--- NOTE | 2018-05-22 12:47 | CP.PCM.DIS ---
Provider - Provider Date of Admission: 05/19/18 13:27 Attending physician: Donnell Gavin MD Time Spent in preparation of Discharge (in minutes): 35 Diagnosis - Discharge Diagnosis (1) Sickle cell crisis Status: Acute (2) Leucocytosis Status: Acute (3) Abnormal liver enzymes Status: Acute (4) Knee pain Status: Acute Hospital Course - Lab Results Lab Results: Micro Results 05/21/18 09:00 Blood Blood Culture - Preliminary NO GROWTH AFTER 24 HOURS 05/19/18 08:40 Urine,Clean Catch Urine Culture - Final No Growth (<1,000 CFU/ML) Most Recent Lab Values WBC 13.7 K/uL (4.8-10.8) H 05/21/18 07:20 RBC 2.01 Mil/uL (3.80-5.20) L 05/21/18 07:20 Hgb 8.5 g/dL (12.0-16.0) L 05/21/18 07:20 Hct 23.4 % (34.0-47.0) L 05/21/18 07:20 MCV 116.5 fl (81.0-99.0) H 05/21/18 07:20 MCH 42.3 pg (27.0-31.0) H 05/21/18 07:20 MCHC 36.3 g/dL (33.0-37.0) 05/21/18 07:20 RDW 19.3 % (11.5-14.5) H 05/21/18 07:20 Plt Count 208 K/uL (130-400) 05/21/18 07:20 MPV 8.1 fl (7.2-11.7) 05/21/18 07:20 Neut % (Auto) 71.1 % (50.0-75.0) 05/21/18 07:20 Lymph % (Auto) 16.1 % (20.0-40.0) L 05/21/18 07:20 Harmon % (Auto) 12.5 % (0.0-10.0) H 05/21/18 07:20 Eos % (Auto) 0.1 % (0.0-4.0) 05/21/18 07:20 Baso % (Auto) 0.2 % (0.0-2.0) 05/21/18 07:20 Neut # (Auto) 9.7 K/uL (1.8-7.0) H 05/21/18 07:20 Lymph # (Auto) 2.2 K/uL (1.0-4.3) 05/21/18 07:20 Harmon # (Auto) 1.7 K/uL (0.0-0.8) H 05/21/18 07:20 Eos # (Auto) 0.0 K/uL (0.0-0.7) 05/21/18 07:20 Baso # (Auto) 0.0 K/uL (0.0-0.2) 05/21/18 07:20 Retic Count 9.2 % (0.5-1.5) H D 05/18/18 18:39 Haptoglobin < 20.0 mg/dL (30.0-200.0) L 05/19/18 07:41 Sodium 136 mmol/l (132-148) 05/21/18 07:20 Potassium 3.6 MMOL/L (3.6-5.0) 05/21/18 07:20 Chloride 106 mmol/L (98-107) 05/21/18 07:20 Carbon Dioxide 23 mmol/L (22-30) 05/21/18 07:20 Anion Gap 11 (10-20) 05/21/18 07:20 BUN 3 mg/dl (7-17) L 05/21/18 07:20 Creatinine 0.3 mg/dl (0.7-1.2) L 05/21/18 07:20 Est GFR ( Amer) > 60 05/21/18 07:20 Est GFR (Non-Af Amer) > 60 05/21/18 07:20 Random Glucose 146 mg/dL (65-105) H 05/21/18 07:20 Lactic Acid 1.0 MMOL/L (0.7-2.1) 05/19/18 08:36 Calcium 8.8 mg/dL (8.4-10.2) 05/21/18 07:20 Total Bilirubin 6.2 mg/dl (0.2-1.3) H 05/21/18 07:20 Direct Bilirubin 0.4 mg/ml (0.0-0.4) 05/19/18 05:40 AST 59 U/L (14-36) H 05/21/18 07:20 ALT 33 U/L (9-52) 05/21/18 07:20 Alkaline Phosphatase 106 U/L (38-126) 05/21/18 07:20 Lactate Dehydrogenase 1846 U/L (313-618) H 05/21/18 09:00 Total Protein 7.8 G/DL (6.3-8.2) 05/21/18 07:20 Albumin 3.9 g/dL (3.5-5.0) 05/21/18 07:20 Globulin 3.9 gm/dL (2.2-3.9) 05/21/18 07:20 Albumin/Globulin Ratio 1.0 (1.0-2.1) 05/21/18 07:20 Vitamin B12 357 pg/mL (239-931) 05/19/18 05:40 Folate > 20.0 ng/mL 05/19/18 05:40 Urine Color Straw (YELLOW) 05/20/18 06:42 Urine Clarity Clear (Clear) 05/20/18 06:42 Urine pH 6.0 (5.0-8.0) 05/20/18 06:42 Ur Specific [place] < 1.005 (1.003-1.030) 05/20/18 06:42 Urine Protein Negative mg/dL (NEGATIVE) 05/20/18 06:42 Urine Glucose (UA) Neg mg/dL (Normal) 05/20/18 06:42 Urine Ketones Negative mg/dL (NEGATIVE) 05/20/18 06:42 Urine Blood Negative (NEGATIVE) 05/20/18 06:42 Urine Nitrate Negative (NEGATIVE) 05/20/18 06:42 Urine Bilirubin Negative (NEGATIVE) 05/20/18 06:42 Urine Urobilinogen 0.2-1.0 mg/dL (0.2-1.0) 05/20/18 06:42 Ur Leukocyte Esterase Neg [place]/uL (Negative) 05/20/18 06:42 Urine RBC (Auto) 2 /hpf (0-3) 05/20/18 06:42 Urine Microscopic WBC 1 /hpf (0-5) 05/20/18 06:42 Ur Squamous Epith Cells 3 /hpf (0-5) 05/20/18 06:42 Blood Type O POSITIVE 05/18/18 18:39 Antibody Screen Negative 05/18/18 18:39 BBK History Checked Patient has bt 05/18/18 18:39 - Hospital Course Hospital Course: 22 YO Female PMHx of sickle cell disease, hx of asthma as a child is admitted for sickle cell crisis. Pt had significant pain on admission, pain mainly in lower back, b/l hip/thigh, knees. Pain improved over the subsequent days with IV meds, and IVF. Pt seen by Hem/onc as inpatient and work-up thus far sig for sickle cell anemia. Good PO intake, ambulating and remains without fever. Will d /c pt home with follow up in [facility] on 05/26/18 @ 3:[address] Jefferson. Cont Home meds Folic Acid (Folic Acid) 1 mg PO DAILY [facility] Hydroxyurea (Hydrea) 1,500 mg PO DAILY [facility] Med Percocet 5/325mg PO 1 tab PO Q6 x 3 days Discharge Exam - Head Exam Head Exam: ATRAUMATIC, NORMOCEPHALIC - Eye Exam Eye Exam: Normal appearance, Scleral icterus - ENT Exam ENT Exam: Mucous Membranes Moist - Respiratory Exam Respiratory Exam: Clear to PA & Lateral, NORMAL BREATHING PATTERN. absent: Chest Wall Tenderness, Wheezes - Cardiovascular Exam Cardiovascular Exam: REGULAR RHYTHM, +S1, +S2 - GI/Abdominal Exam GI & Abdominal Exam: Normal Bowel Sounds, Soft. absent: Distended, Tenderness - Extremities Exam Extremities exam: normal inspection, tenderness (mild R knee tenderness, no erythem, edema or effusions ) - Neurological Exam Neurological exam: Alert, Oriented x3 Discharge Plan - Discharge Medications Prescriptions: Folic Acid 1 mg PO DAILY 30 Days #30 tab Hydroxyurea [Hydrea] 1,500 mg PO DAILY 30 Days cap oxyCODONE/Acetaminophen [Percocet 5/325 mg Tab] 1 ea PO Q6 3 Days #12 tab - Follow Up Plan Condition: FAIR Disposition: HOME/ ROUTINE Patient education suggested?: Yes Instructions: Sickle Cell Disease (DC) Additional Instructions: Follow up in [facility] on 05/26/18 @ 3:[address] Jefferson ER precautions for fever over 100.4 with Tylenol, worsening pain, chest pain, dyspnea. Referrals: [facility] [place] [Outside]
[2018-05-22] MEDS ORDERED: HYDROmorphone 1 mg/ml ISec IVP SCH (13:00)
== END 2018-05-22 14:20 | disposition home or self-care (01) | DRG 395 ==
LOC: H.ER 18:07 → H.ERHOLD 21:20 → H.MEDSURG1 23:15 → OBSVTOIN 05-19 13:27
PROVIDERS: ADMIT Family Medicine; ATTEND Family Medicine
DX: D57.00 Hb-SS disease with crisis, unspecified (principal); D72.829 Elevated white blood cell count, unspecified; J45.909 Unspecified asthma, uncomplicated; Z83.2 Family history of diseases of the blood and blood-forming organs and certain disorders involving the immune mechanism; Z87.09 Personal history of other diseases of the respiratory system; Z90.49 Acquired absence of other specified parts of digestive tract; R74.8 Abnormal levels of other serum enzymes; D53.9 Nutritional anemia, unspecified

== ENCOUNTER 2018-07-09 20:40 | Emergency (ER) | payer MEDICAID, SELFPAY ==
[2018-07-09 20:40] VITALS: BMI 25.9
[2018-07-09 20:52] VITALS: BP 114/76; PULSE 78; RESP 17; TEMP 98.1; O2SAT 96
--- NOTE | 2018-07-09 20:56 | ED PDOC ---
Upper Extremity Pain/Injury Chief Complaint (Provider): arm pain History Per: Patient History/Exam Limitations: no limitations Onset/Duration Of Symptoms: Hrs Current Symptoms Are (Timing): Still Present Additional Complaint(s): 23 y/o right hand dominant female with a PMHx of Sickle Cell Disease presents to the ED for evaluation of left arm pain that started today. Patient thinks she slept on her arm causing the pain. Patient took 1 advil 2 hours ago but this did not help. Pain is worse with movement, better with rest. No recent trauma or injury. Patient denies any associated chest pain or pain anywhere else. She denies any fever or chills. PMD: none <Carol Isabel - Last Filed: 07/09/18 21:13> <Luisa Alicia - Last Filed: 07/10/18 00:06> Time Seen by Provider: 07/09/18 20:55 Chief Complaint (Nursing): Upper Extremity Problem/Injury Supervising Attending Note - Attestation: I have personally seen and examined this patient.: No I have reviewed all pertinent clinical information: Yes <Luisa Alicia - Last Filed: 07/10/18 00:06> Past Medical History Reviewed: Historical Data, Nursing Documentation, Vital Signs Vital Signs: Last Vital Signs Temp 98.1 F 07/09/18 20:49 Pulse 78 07/09/18 20:49 Resp 17 07/09/18 20:49 BP 114/76 07/09/18 20:49 Pulse Ox 96 07/09/18 20:49 - Medical History PMH: Asthma, Emphysema, HTN, Sickle Cell Disease, Sleep Apnea - Surgical History Surgical History: Cholecystectomy (At age 11), Tonsillectomy Denies: Pacemaker - Family History Family History: States: Unknown Family Hx - Social History Current smoker - smoking cessation education provided: No <Carol Isabel - Last Filed: 07/09/18 21:13> Vital Signs: Last Vital Signs Temp 98.1 F 07/09/18 20:49 Pulse 78 07/09/18 20:49 Resp 17 07/09/18 20:49 BP 114/76 07/09/18 20:49 Pulse Ox 96 07/09/18 22:26 <Luisa Alicia - Last Filed: 07/10/18 00:06> - Home Medications Home Medications: Ambulatory Orders Medication Instructions Recorded Azithromycin [Zithromax] 500 mg PO DAILY #7 tablet 06/03/18 RX: Docusate [Colace] 100 mg PO BID #20 cap 06/03/18 RX: Folic Acid 1 mg PO DAILY 30 Days #30 tab 06/03/18 RX: Hydroxyurea [Hydrea] 1,500 mg PO DAILY 30 Days cap 06/03/18 RX: oxyCODONE/Acetaminophen 1 tab PO Q6 PRN #30 tab 06/03/18 [Percocet 5/325 mg Tab] Cyclobenzaprine [Cyclobenzaprine 10 mg PO TID PRN #20 tab 07/09/18 HCl] Naproxen [Naprosyn] 500 mg PO BID #20 tab 07/09/18 - Allergies Allergies/Adverse Reactions: Allergies Allergy/AdvReac Type Severity Reaction Status Date / Time No Known Allergies Allergy Verified 07/09/18 20:53 Review of Systems ROS Statement: Except As Marked, All Systems Reviewed And Found Negative Musculoskeletal: Positive for: Arm Pain (Left) <Carol Isabel - Last Filed: 07/09/18 21:13> Physical Exam - Reviewed Nursing Documentation Reviewed: Yes Vital Signs Reviewed: Yes - Physical Exam Appears: Positive for: Well, Non-toxic, No Acute Distress Head Exam: Positive for: ATRAUMATIC Skin: Positive for: Normal Color. Negative for: Rash Eye Exam: Positive for: Normal appearance Neck: Positive for: Normal, Painless ROM Cardiovascular/Chest: Positive for: Regular Rate, Rhythm, Chest Non Tender Respiratory: Positive for: Normal Breath Sounds. Negative for: Wheezing, Respiratory Distress Back: Positive for: Normal Inspection. Negative for: Vertebral Tenderness Extremity: Negative for: Normal ROM (Pain elicited with movement of left arm ), Deformity (bony deformity), Swelling, Other (ecchymosis) Neurologic/Psych: Positive for: Alert, Oriented, Gait (steady) <Carol Isabel - Last Filed: 07/09/18 21:13> - Laboratory Results Urine POC: Negative - ECG O2 Sat by Pulse Oximetry: 96 (RA) Pulse Ox Interpretation: Normal <Carol Isabel - Last Filed: 07/09/18 21:13> Medical Decision Making Medical Decision Making: Time: 2100 Impression: Left Arm Muscle Strain Plan: -- ED Urine -- Toradol 30 mg IM Sling offered but patient declined. Patient states she feels better after Toradol injection. Patient to be discharged home with a prescription of Naprosyn and Flexeril. Advise clinic follow-up. Patient is aware she can return any time if acutely worse. _ Scribe Attestation: Documented by Silver York, acting as a scribe Dedra Isabel PA-C. Provider Scribe Attestation: All medical record entries made by the Scribe were at my direction and personally dictated by me. I have reviewed the chart and agree that the record accurately reflects my personal performance of the history, physical exam, medical decision making, and the department course for this patient. I have also personally directed, reviewed, and agree with the discharge instructions and disposition. <Carol Isabel - Last Filed: 07/09/18 21:13> Disposition - Patient ED Disposition Is Patient to be Admitted: No Counseled Patient/Family Regarding: Diagnosis, Need For Followup, Rx Given - Disposition Disposition: Routine/Home Disposition Time: 21:23 <Carol Isabel - Last Filed: 07/09/18 21:13> <Luisa Alicia - Last Filed: 07/10/18 00:06> - Clinical Impression Clinical Impression: Arm pain - Disposition Referrals: [facility] [Outside] Condition: STABLE Additional Instructions: Take rx meds as directed. Follow up with clinic or return any time if acutely worse. Prescriptions: Cyclobenzaprine [Cyclobenzaprine HCl] 10 mg PO TID PRN #20 tab PRN Reason: Muscle Spasm Naproxen [Naprosyn] 500 mg PO BID #20 tab Instructions: Muscle and Bone Pain (DC) Forms: [place]
== END 2018-07-09 21:34 | disposition home or self-care (01) ==
LOC: H.ER 20:40
DX: M79.602 Pain in left arm (principal)
CPT/HCPCS: 81025; 96372; 99283; J1885

== ENCOUNTER 2018-08-29 09:57 | Inpatient (IN) | payer MEDICAID, SELFPAY ==
[2018-08-29 09:57] VITALS: BMI 25.9
[2018-08-29] MEDS ORDERED: Sodium Chloride 0.9% 1,000 ML IV STA (10:59)
[2018-08-29] MEDS ORDERED: Lidocaine 5% Patch TD STA (11:01)
--- NOTE | 2018-08-29 11:06 | ED PDOC ---
HPI: Back Time Seen by Provider: 08/29/18 10:44 Chief Complaint (Nursing): Back Pain Chief Complaint (Provider): Back pain History Per: Patient History/Exam Limitations: no limitations Onset/Duration Of Symptoms: Days Additional Complaint(s): Pt. has sickle cell and is having lower back pain. Ongoing for 1 week. Pain goes down her legs. No numbness, tingles, weakness, abd pain, chest pain, dyspnea. No fever, cough, neck pain, headaches. No injury, incontinence, constipation. Past Medical History Reviewed: Nursing Documentation, Vital Signs Vital Signs: Last Vital Signs Temp 97.7 F 08/29/18 10:22 Pulse 81 08/29/18 10:22 Resp 15 08/29/18 10:22 BP 118/51 L 08/29/18 10:22 Pulse Ox 100 08/29/18 10:22 - Medical History PMH: Asthma, Sickle Cell Disease, Sleep Apnea Denies: Anemia, Atrial Fibrillation, Bronchitis, CAD, Cardia Arrhythmia, CHF, COPD, HIV, Hypercholesterolemia, Mitral Valve Prolapse, Peripheral Edema, Pneumonia, Pulmonary Embolism, Chronic Kidney Disease - Surgical History Surgical History: Cholecystectomy (At age 11), Tonsillectomy Denies: Pacemaker - Family History Family History: States: Unknown Family Hx - Home Medications Home Medications: Ambulatory Orders Medication Instructions Recorded Folic Acid 1 mg PO HS 08/29/18 Hydroxyurea [Hydrea] 1,500 mg PO HS 08/29/18 - Allergies Allergies/Adverse Reactions: Allergies Allergy/AdvReac Type Severity Reaction Status Date / Time No Known Allergies Allergy Verified 07/09/18 20:53 Review of Systems ROS Statement: Except As Marked, All Systems Reviewed And Found Negative Musculoskeletal: Positive for: Back Pain Physical Exam - Reviewed Nursing Documentation Reviewed: Yes Vital Signs Reviewed: Yes - Physical Exam Appears: Positive for: Non-toxic, No Acute Distress Head Exam: Positive for: ATRAUMATIC, NORMAL INSPECTION, NORMOCEPHALIC Skin: Positive for: Normal Color, Warm, DRY Eye Exam: Positive for: EOMI, Normal appearance, PERRL ENT: Positive for: Normal ENT Inspection Neck: Positive for: Normal, Painless ROM Cardiovascular/Chest: Positive for: Regular Rate, Rhythm Respiratory: Positive for: CNT, Normal Breath Sounds Gastrointestinal/Abdominal: Positive for: Normal Exam, Soft. Negative for: Tenderness Back: Positive for: Normal Inspection. Negative for: L CVA Tenderness, R CVA Tenderness Extremity: Positive for: Normal ROM. Negative for: Tenderness, Pedal Edema Neurologic/Psych: Positive for: Alert, grocery bagger II-XII, Oriented. Negative for: Motor/Sensory Deficits, Facial Droop - Laboratory Results Result Diagrams: 08/29/18 14:05 08/29/18 14:05 - ECG O2 Sat by Pulse Oximetry: 100 - Progress ED Course And Treament: 1536: Spoke with Dr. Bynum. Will admit obs. Pain control from crisis of sickle cell. AAOx3. Disposition - Clinical Impression Clinical Impression: Back pain - Patient ED Disposition Is Patient to be Admitted: Yes Counseled Patient/Family Regarding: Studies Performed, Diagnosis - Disposition Disposition Time: 15:00 Condition: FAIR - Pt Status Changed To: Hospital Disposition Of: Observation - POA Present On Arrival: None
[2018-08-29] MEDS ORDERED: Lidocaine 5% Patch TD ONE (11:40)
[2018-08-29] MEDS ORDERED: Morphine 4 MG/ML VIAL IM STA (11:46)
[2018-08-29] MEDS ORDERED: Morphine 4 MG/ML VIAL ONE ×2 (11:49→14:48)
[2018-08-29] MEDS ORDERED: Lidocaine 1% Inj (20ml) ONE (13:18)
--- NOTE | 2018-08-29 13:34 | PCM.SURG1 ---
Surgeon's Initial Post Op Note - Surgeon's Notes Surgeon: Riky Hernandez MD Rn Endocrinology: NONE Type of Anesthesia: Local Pre-Operative Diagnosis: Poor venous access Operative Findings: US showed patent right basilic vein. Post-Operative Diagnosis: Poor venous access Operation Performed: Single lumen picc placement right arm, 37 cm. Tip in SVC. Specimen/Specimens Removed: None Estimated Blood Loss: EBL {In ML}: 2 Blood Products Given: N/A Drains Used: No Drains Post-Op Condition: Fair Date of Surgery/Procedure: 08/29/18 Time of Surgery/Procedure: 13:30
--- NOTE | 2018-08-29 13:40 | VASCULAR ---
PROCEDURE: Date of procedure: 08/29/2018 Procedure: 1. Placement of a right arm PICC with ultrasound and fluoroscopic guidance, CPT 60733 2. PICC tip confirmation with spot radiograph and is in the superior vena cava Medications: 3CC 1 percent lidocaine Total Fluoro time: 2.5 Seconds Radiation: 0.24 MGy EBL: 2 cc HISTORY: Infection requiring long-term IV antibiotics TECHNIQUE: Following informed consent and procedure time-out, the patient was placed supine on the interventional table and the right arm prepped and draped in the usual sterile fashion. Ultrasound showed a patent and compressible right basilic vein. After the skin was anesthetized with lidocaine, the basilic vein was accessed with micro micropuncture technique using ultrasound guidance. A guidewire was then advanced under fluoroscopic guidance into the superior vena cava. An image documenting ultrasound guidance for vascular access was permanently saved. The length of the single-lumen 4 Japanese PICC was trimmed to 37 centimeters and advanced through a peel-away sheath. The PICC was position with tip of PICC confirm a spot radiograph the superior vena cava. The PICC was secured to the patient's skin. The PICC was flushed. A biopatch and sterile dressing was applied. IMPRESSION: Placement of a single-lumen 4 Japanese PICC trimmed to 37 centimeters via right basilic vein. The tip of the PICC is confirmed with spot radiograph and is in the superior vena cava.
[2018-08-29 14:21] LABS: BASO # 0.1 K/uL (0.0-0.2); BASO % 0.8 % (0.0-2.0); EOS % 0.2 % (0.0-4.0); HEMOGLOBIN 9.4 g/dL (12.0-16.0); LYMPH # 1.6 K/uL (1.0-4.3); LYMPH % 14.2 % (20.0-40.0); MEAN CORPUSCULAR HGB CONC 35.7 g/dL (33.0-37.0); MEAN PLATELET VOLUME 7.9 fl (7.2-11.7); MONO # 0.7 K/uL (0.0-0.8); NEUT # 9.2 K/uL (1.8-7.0); NEUT % 78.8 % (50.0-75.0); NRBC % 4.6 % (0.0-0.0); RBC 2.24 Mil/uL (3.80-5.20); WHITE BLOOD COUNT 11.6 K/uL (4.8-10.8)
[2018-08-29 14:25] LABS: INR 1.2; MEAN CELL VOLUME 117.7 fl (81.0-99.0); PROTHROMBIN TIME 13.5 Seconds (9.8-13.1)
[2018-08-29 14:27] LABS: PARTIAL THROMBOPLASTIN TIME 29.2 Seconds (25.6-37.1)
[2018-08-29 14:41] LABS: BLOOD UREA NITROGEN 9 mg/dl (7-17); CALCIUM 9.5 mg/dL (8.4-10.2); GFR NON-AFRICAN AMERICAN > 60
[2018-08-29 14:42] LABS: ALBUMIN 4.6 g/dL (3.5-5.0); ALT/SGPT 42 U/L (9-52); AST/SGOT 68 U/L (14-36)
[2018-08-29] MEDS ORDERED: Morphine 4 MG/ML VIAL IV ONE (15:00)
--- NOTE | 2018-08-29 15:44 | RAD ---
Date of service: 08/29/2018 PROCEDURE: Radiographs of the Lumbar Spine. HISTORY: back pain COMPARISON: No prior. FINDINGS: BONES: Vertebral bodies are maintained in height. Incidentally noted lumbarization of the S1 vertebra. Transverse processes and posterior elements are intact. No evidence of spondylolisthesis or spondylolysis. DISC SPACES: Unremarkable. OTHER FINDINGS: None. IMPRESSION: Incidental lumbarization of the S1 vertebra. Otherwise unremarkable examination.
--- NOTE | 2018-08-29 16:38 | CP.PCM.HP ---
<Juan David Saucedo - Last Filed: 08/29/18 16:33> History of Present Illness - History of Present Illness History of Present Illness: 23F with pmhx of sickle cell anemia and asthma presents to the ED with lower back pain and radiating pain down her legs. States that the symptoms started at 8 AM this morning. States that she does not know why the pain started. She states that she has not fallen or had any trauma to her back or legs. States that she was recently hospitalized for similar symptoms at the end of April of this year. Denies shortness of breath, nausea, vomiting, fever, and chills. States she takes medications hydroxyurea and folic acid for sickle cell regularly. Denies any abdominal pain, dysuria, urgency, focal motor weakness, and headaches. PMD: [facility] PMHx: sickle cell disease, asthma PSH: cholecystectomy, adenoidectomy SHx: denies smoking and alcohol use, no recreational drug use All: NKDA Meds: Hydroxyurea, folic acid Present on Admission - Present on Admission Any Indicators Present on Admission: No Review of Systems - Constitutional Constitutional: absent: Chills, Fever, Frequent Falls, Headache, Weight Loss, Weakness - EENT Eyes: absent: Irritation Ears: absent: Ear Pain Nose/Mouth/Throat: absent: Nasal Trauma, Dry Mouth - Cardiovascular Cardiovascular: absent: Chest Pain, Edema - Respiratory Respiratory: absent: Cough, Dyspnea, Wheezing - Gastrointestinal Gastrointestinal: absent: Abdominal Pain, Diarrhea, Nausea, Vomiting - Genitourinary Genitourinary: absent: Difficulty Urinating - Musculoskeletal Musculoskeletal: absent: Abnormal Gait, Joint Swelling - Integumentary Integumentary: absent: Photosensitivity - Neurological Neurological: absent: Syncope - Psychiatric Psychiatric: absent: Anxiety Past Patient History - Past Medical History & Family History Past Medical History?: Yes - Past Social History Smoking Status: Never Smoked - CARDIAC Hx Atrial Fibrillation: No Hx Cardia Arrhythmia: No Hx Congestive Heart Failure: No Hx Hypercholesterolemia: No Hx Mitral Valve Prolapse: No Hx Pacemaker: No Hx Peripheral Edema: No - PULMONARY Hx Asthma: Yes Hx Bronchitis: No Hx Chronic Obstructive Pulmonary Disease (COPD): No Hx Pneumonia: No Hx Pulmonary Embolism: No Hx Sleep Apnea: Yes - NEUROLOGICAL Hx Neurological Disorder: No - HEENT Hx HEENT Problems: No - RENAL Hx Chronic Kidney Disease: No - ENDOCRINE/METABOLIC Hx Endocrine Disorders: No - HEMATOLOGICAL/ONCOLOGICAL Hx Anemia: No Hx Human Immunodeficiency Virus (HIV): No Hx Sickle Cell Disease: Yes - INTEGUMENTARY Hx Dermatological Problems: No - MUSCULOSKELETAL/RHEUMATOLOGICAL Hx Falls: No - GASTROINTESTINAL Hx Gastrointestinal Disorders: No - GENITOURINARY/GYNECOLOGICAL Hx Genitourinary Disorders: No - PSYCHIATRIC Hx Psychophysiologic Disorder: No Hx Substance Use: No - SURGICAL HISTORY Hx Cholecystectomy: Yes (At age 11) Hx Tonsillectomy: Yes - ANESTHESIA Hx Anesthesia: Yes Hx Anesthesia Reactions: No Hx Malignant Hyperthermia: No Meds Allergies/Adverse Reactions: Allergies Allergy/AdvReac Type Severity Reaction Status Date / Time No Known Allergies Allergy Verified 07/09/18 20:53 Physical Exam - Constitutional Appears: Non-toxic, No Acute Distress - Head Exam Head Exam: ATRAUMATIC, NORMAL INSPECTION, NORMOCEPHALIC - Eye Exam Eye Exam: Scleral icterus - ENT Exam ENT Exam: Mucous Membranes Dry, Normal Exam - Neck Exam Neck exam: Positive for: Full Rom, Normal Inspection - Respiratory Exam Respiratory Exam: Clear to Auscultation Bilateral, NORMAL BREATHING PATTERN - Cardiovascular Exam Cardiovascular Exam: REGULAR RHYTHM, +S1, +S2 - GI/Abdominal Exam GI & Abdominal Exam: Normal Bowel Sounds, Soft. absent: Tenderness - Extremities Exam Extremities exam: Positive for: normal capillary refill, pedal pulses present. Negative for: pedal edema - Back Exam Additional comments: midline pain on palpation at the lumbosacral spine region - Neurological Exam Neurological exam: Alert, CN II-XII Intact, Oriented x3 - Psychiatric Exam Psychiatric exam: Normal Affect, Normal Mood - Skin Skin Exam: Dry Results - Vital Signs Recent Vital Signs: Last Vital Signs Temp 98.0 F 08/29/18 14:42 Pulse 78 08/29/18 14:42 Resp 20 08/29/18 14:42 BP 120/64 08/29/18 14:42 Pulse Ox 100 08/29/18 15:38 - Labs Result Diagrams: 08/29/18 14:05 08/29/18 14:05 Labs: Laboratory Results - last 24 hr 08/29/18 08/29/18 08/29/18 14:05 14:05 14:05 WBC 11.6 H RBC 2.24 L Hgb 9.4 L Hct 26.4 L MCV 117.7 H D MCH 42.0 H MCHC 35.7 RDW 20.0 H Plt Count 319 D MPV 7.9 Neut % (Auto) 78.8 H Lymph % (Auto) 14.2 L [place] % (Auto) 6.0 Eos % (Auto) 0.2 Baso % (Auto) 0.8 Neut # (Auto) 9.2 H Lymph # (Auto) 1.6 [place] # (Auto) 0.7 Eos # (Auto) 0.0 Baso # (Auto) 0.1 Retic Count 9.0 H D PT 13.5 H INR 1.2 APTT 29.2 Sodium 139 Potassium 4.3 Chloride 103 Carbon Dioxide 24 Anion Gap 16 BUN 9 Creatinine 0.3 L Est GFR ( Amer) > 60 Est GFR (Non-Af Amer) > 60 Random Glucose 108 H Calcium 9.5 Total Bilirubin 5.4 H AST 68 H D ALT 42 Alkaline Phosphatase 122 Total Protein 9.1 H Albumin 4.6 Globulin 4.5 H Albumin/Globulin Ratio 1.0 Assessment & Plan - Assessment and Plan (Free Text) Assessment: 23F with pmhx of sickle cell anemia and asthma seen and evaluated in the ED for sickle cell crisis and lower back pain that radiates to the legs Plan: 1. Sickle cell crisis - lumbar spine x-ray: no acute findings - O2 nasal cannula 2L - NS IV 125 mls/hr - pain management with morphine 4 mg IVP Q4 PRN for severe pain, 2 mg IVP Q4 for moderate pain, tramadol Q6 PRN for mild pain - monitor labs/vitals - continue hydroxyurea and folic acid per med rec - UA r/o UTI - f/u 2. Diet - regular diet 3. DVT prophylaxis - SCD, patient ambulating 4. Full code - Date & Time Date: 08/29/18 Time: 16:51 <Mihaela Bynum - Last Filed: 08/30/18 18:35> Results - Vital Signs Recent Vital Signs: Last Vital Signs Temp 99.5 F 08/30/18 16:15 Pulse 100 H 08/30/18 16:15 Resp 20 08/30/18 16:15 BP 123/77 08/30/18 16:15 Pulse Ox 95 08/30/18 16:15 - Labs Result Diagrams: 08/30/18 06:00 08/30/18 06:00 Labs: Laboratory Results - last 24 hr 08/30/18 08/30/18 08/30/18 06:00 06:00 10:58 WBC 12.1 H RBC 2.02 L Hgb 8.5 L Hct 23.5 L MCV 116.4 H MCH 42.0 H MCHC 36.1 RDW 20.3 H Plt Count 283 MPV 7.9 Neut % (Auto) 60.5 Lymph % (Auto) 25.7 [place] % (Auto) 12.5 H Eos % (Auto) 0.2 Baso % (Auto) 1.1 Neut # (Auto) 7.3 H Lymph # (Auto) 3.1 [place] # (Auto) 1.5 H Eos # (Auto) 0.0 Baso # (Auto) 0.1 Retic Count 8.4 H D Sodium 138 Potassium 4.5 Chloride 107 Carbon Dioxide 25 Anion Gap 11 BUN 5 L Creatinine 0.3 L Est GFR ( Amer) > 60 Est GFR (Non-Af Amer) > 60 Random Glucose 107 H Calcium 8.7 Total Bilirubin 4.5 H AST 93 H D ALT 43 Alkaline Phosphatase 104 Total Protein 7.9 Albumin 4.0 Globulin 3.9 Albumin/Globulin Ratio 1.0 Attending/Attestation - Attestation I have personally seen and examined this patient.: Yes I have fully participated in the care of the patient.: Yes I have reviewed all pertinent clinical information: Yes Notes (Text): 08/30/18 18:35 agree with findings and plan as above.
[2018-08-29] MEDS ORDERED: Sodium Chloride 0.9% 1,000 ML IV SCH (16:45)
[2018-08-29 17:32] LABS: URINE COLOR YELLOW (YELLOW)
[2018-08-29 17:33] LABS: URINE BILIRUBIN NEGATIVE (NEGATIVE); URINE BLOOD SMALL (NEGATIVE); URINE CLARITY SLIGHT-CLOUDY (Clear); URINE GLUCOSE (UA) NEGATIVE (Normal)
[2018-08-29 17:34] LABS: SQUAMOUS EPITHIAL 3 /hpf (0-5); URINE BACTERIA RARE (<OCC); URINE LEUKOCYTE ESTERASE NEGATIVE Leu/uL (Negative); URINE PROTEIN NEGATIVE (NEGATIVE)
[2018-08-29] MEDS: Sodium Chloride 0.9% 1,000 ML IV SCH (22:51)
[2018-08-30] MEDS: Morphine 4 MG/ML VIAL IVP PRN ×5 (03:17→21:59)
[2018-08-30] MEDS: Sodium Chloride 0.9% 1,000 ML IV SCH ×3 (05:30→22:02)
[2018-08-30 06:24] LABS: BASO # 0.1 K/uL (0.0-0.2); BASO % 1.1 % (0.0-2.0); EOS % 0.2 % (0.0-4.0); HEMOGLOBIN 8.5 g/dL (12.0-16.0); LYMPH # 3.1 K/uL (1.0-4.3); LYMPH % 25.7 % (20.0-40.0); MEAN CELL VOLUME 116.4 fl (81.0-99.0); MEAN CORPUSCULAR HGB CONC 36.1 g/dL (33.0-37.0); MEAN PLATELET VOLUME 7.9 fl (7.2-11.7); MONO # 1.5 K/uL (0.0-0.8); MONO % 12.5 % (0.0-10.0); NEUT # 7.3 K/uL (1.8-7.0); NEUT % 60.5 % (50.0-75.0); NRBC % 7.8 % (0.0-0.0); RBC 2.02 Mil/uL (3.80-5.20); RED CELL DISTRIBUTION WIDTH 20.3 % (11.5-14.5); WHITE BLOOD COUNT 12.1 K/uL (4.8-10.8)
[2018-08-30 06:52] LABS: BLOOD UREA NITROGEN 5 mg/dl (7-17); GFR NON-AFRICAN AMERICAN > 60
[2018-08-30 06:53] LABS: ALT/SGPT 43 U/L (9-52); AST/SGOT 93 U/L (14-36); CALCIUM 8.7 mg/dL (8.4-10.2)
--- NOTE | 2018-08-30 10:55 | CP.PCM.PN ---
<Garima Sneed Rosalind - Last Filed: 08/30/18 11:52> Subjective - Date & Time of Evaluation Date of Evaluation: 08/30/18 Time of Evaluation: 08:10 - Subjective Subjective: Patient was seen, and examined at bedside this morning. Still complaining of 10/10 lower back pain. Overnight Dilaudid was ordered for better pain control. Has been afebrile, but mild tachy. Going for CXR this morning to r/o pulmonary infection. Objective - Vital Signs/Intake and Output Vital Signs (last 24 hours): Temp Pulse Resp BP Pulse Ox 97.7 F 105 H 20 103/62 96 08/30/18 08:07 08/30/18 00:47 08/30/18 08:07 08/30/18 08:07 08/30/18 08:07 - Medications Medications: Current Medications Folic Acid (Folic Acid) 1 mg PO HS [facility] Last Admin: 08/29/18 22:42 Dose: 1 mg Hydroxyurea (Hydrea) 1,500 mg PO HS [facility] Last Admin: 08/29/18 22:41 Dose: 1,500 mg Sodium Chloride (Sodium Chloride 0.9%) 1,000 mls @ 125 mls/hr IV .Q8H [facility] Stop: 08/31/18 12:00 Morphine Sulfate (Morphine) 1 mg IVP Q6 PRN PRN Reason: Pain, moderate (4-7) Morphine Sulfate (Morphine) 2 mg IVP Q6 PRN PRN Reason: Pain, severe (8-10) Tramadol HCl (Ultram) 50 mg PO Q6 PRN PRN Reason: Pain, Mild (1-3) Last Admin: 08/30/18 10:21 Dose: 50 mg - Labs Labs: 08/30/18 06:00 08/30/18 06:00 PT 13.5 Seconds (9.8-13.1) H 08/29/18 14:05 INR 1.2 08/29/18 14:05 APTT 29.2 Seconds (25.6-37.1) 08/29/18 14:05 - Constitutional Appears: Non-toxic, No Acute Distress - Eye Exam Eye Exam: Scleral icterus - ENT Exam ENT Exam: Mucous Membranes Moist - Respiratory Exam Respiratory Exam: Clear to Ausculation Bilateral, NORMAL BREATHING PATTERN. ab sent: Chest Wall Tenderness, Rales, Rhonchi, Wheezes, Respiratory Distress - Cardiovascular Exam Cardiovascular Exam: REGULAR RHYTHM, +S1, +S2 - GI/Abdominal Exam GI & Abdominal Exam: Soft, Normal Bowel Sounds. absent: Distended, Guarding, Tenderness - Extremities Exam Extremities Exam: Normal Inspection. absent: Calf Tenderness, Pedal Edema - Back Exam Back Exam: NORMAL INSPECTION. absent: CVA tenderness (L), CVA tenderness (R) - Neurological Exam Neurological Exam: Alert, Awake, Oriented x3 - Psychiatric Exam Psychiatric exam: Normal Affect, Normal Mood - Skin Skin Exam: Dry, Intact, Pallor Assessment and Plan - Assessment and Plan (Free Text) Assessment: 23 F with pmhx of sickle cell diseases, and Asthma admitted with intractable lower back pain likely secondary to Sickle cell crisis. Plan: Intractable lower back pain likely secondary to Sickle cell crisis MedSurg unit afebrile Oxygen via NC at 2 LPM PRN 100 % oxygen sat in room air on admission c/w Hydration with NS 125 ml/hr Pain control with Morphine, and tramadol c/w home Hydroxyurea c/w home folic acid UA on admission with no evidence of infection Will do CXR, f/u results elevated retic count on admission elevated total bili on admission Lumbar spine x ray on admission reported as unremarkable test Sickle cell diseases crisis c/w hydration pain control elevated retic count on admission elevated total bili on admission, likely indirected bili c/w home Hydroxyurea c/w home folic acid PICC line on R upper arm for IV fluids, difficult to get, and keep a peripheral line, per nurse report c/w Hydration with NS 125 ml/hr Diet - regular diet - DVT prophylaxis - SCD, patient ambulating <Mihaela Bynum - Last Filed: 08/30/18 18:32> Objective - Vital Signs/Intake and Output Vital Signs (last 24 hours): Temp Pulse Resp BP Pulse Ox 99.5 F 100 H 20 123/77 95 08/30/18 16:15 08/30/18 16:15 08/30/18 16:15 08/30/18 16:15 08/30/18 16:15 - Medications Medications: Current Medications Docusate Sodium (Colace) 200 mg PO DAILY [facility] Folic Acid (Folic Acid) 1 mg PO HS [facility] Last Admin: 08/29/18 22:42 Dose: 1 mg Hydroxyurea (Hydrea) 1,500 mg PO HS [facility] Last Admin: 08/29/18 22:41 Dose: 1,500 mg Sodium Chloride (Sodium Chloride 0.9%) 1,000 mls @ 125 mls/hr IV .Q8H [facility]IC[facility] Stop: 08/31/18 12:00 Last Admin: 08/30/18 12:17 Dose: 125 mls/hr Morphine Sulfate (Morphine) 1 mg IVP Q6 PRN PRN Reason: Pain, moderate (4-7) Morphine Sulfate (Morphine) 2 mg IVP Q6 PRN PRN Reason: Pain, severe (8-10) Last Admin: 08/30/18 17:56 Dose: 2 mg Tramadol HCl (Ultram) 50 mg PO Q6 PRN PRN Reason: Pain, Mild (1-3) Last Admin: 08/30/18 15:31 Dose: 50 mg - Labs Labs: 08/30/18 06:00 08/30/18 06:00 PT 13.5 Seconds (9.8-13.1) H 08/29/18 14:05 INR 1.2 08/29/18 14:05 APTT 29.2 Seconds (25.6-37.1) 08/29/18 14:05 Attending/Attestation - Attestation I have personally seen and examined this patient.: Yes I have fully participated in the care of the patient.: Yes I have reviewed all pertinent clinical information, including history, physical exam and plan: Yes Notes (Text): 08/30/18 18:32 patient looks comfortable. complaining, but does not appear in distress. hd stable titrate down pain meds to motrin. discharge tomorrow?
--- NOTE | 2018-08-30 13:36 | RAD ---
Date of service: 08/30/2018 HISTORY: Sickle cell disease COMPARISON: 05/31/2018 TECHNIQUE: Chest PA and lateral FINDINGS: LINES AND TUBES: The right PICC line terminates in the SVC. LUNG AND PLEURA: The lungs are well inflated and clear. No pleural effusion or pneumothorax. HEART AND MEDIASTINUM: The heart is not enlarged. No aortic atherosclerotic calcification present. The hilar and mediastinal contours are within normal limits. SKELETAL STRUCTURES: The bony structures are within normal limits for the patient's age. VISUALIZED UPPER ABDOMEN: Normal. OTHER FINDINGS: None. IMPRESSION: No active pulmonary disease.
[2018-08-31] MEDS: Morphine 4 MG/ML VIAL IVP PRN ×6 (02:00→23:43)
[2018-08-31 06:13] LABS: BASO # 0.1 K/uL (0.0-0.2); BASO % 0.7 % (0.0-2.0); EOS # 0.1 K/uL (0.0-0.7); EOS % 0.8 % (0.0-4.0); HEMOGLOBIN 8.4 g/dL (12.0-16.0); LYMPH % 29.4 % (20.0-40.0); MEAN CELL VOLUME 116.6 fl (81.0-99.0); MEAN CORPUSCULAR HEMOGLOBIN 42.4 pg (27.0-31.0); MEAN CORPUSCULAR HGB CONC 36.4 g/dL (33.0-37.0); MEAN PLATELET VOLUME 7.6 fl (7.2-11.7); MONO # 1.4 K/uL (0.0-0.8); MONO % 13.3 % (0.0-10.0); NEUT # 5.7 K/uL (1.8-7.0); NEUT % 55.8 % (50.0-75.0); NRBC % 7.6 % (0.0-0.0); RBC 1.98 Mil/uL (3.80-5.20); RED CELL DISTRIBUTION WIDTH 19.7 % (11.5-14.5); WHITE BLOOD COUNT 10.3 K/uL (4.8-10.8)
[2018-08-31 06:44] LABS: BLOOD UREA NITROGEN 4 mg/dl (7-17)
[2018-08-31 06:45] LABS: ALB/GLOB RATIO 0.9 (1.0-2.1); ALBUMIN 3.6 g/dL (3.5-5.0); ALT/SGPT 47 U/L (9-52); AST/SGOT 65 U/L (14-36); CALCIUM 8.7 mg/dL (8.4-10.2); GFR NON-AFRICAN AMERICAN > 60
[2018-08-31] MEDS: Sodium Chloride 0.9% 1,000 ML IV SCH ×2 (13:08→21:12)
--- NOTE | 2018-08-31 13:38 | CP.PCM.PN ---
Subjective - Date & Time of Evaluation Date of Evaluation: 08/31/18 Time of Evaluation: 08:00 - Subjective Subjective: Patient was seen, and examined at bedside this morning. patient states that lower back pain is a "little bit" better than yesterday. Pain is now 8/10. Denies chest pain, SOB, cough, N/V, abdominal pain, diarrheas, urinary symptoms. Has been afebrile on admission. Objective - Vital Signs/Intake and Output Vital Signs (last 24 hours): Temp Pulse Resp BP Pulse Ox 99.2 F 102 H 19 107/63 95 08/31/18 08:10 08/31/18 08:13 08/31/18 08:10 08/31/18 08:10 08/31/18 08:10 - Medications Medications: Current Medications Docusate Sodium (Colace) 200 mg PO DAILY [facility] Last Admin: 08/31/18 10:24 Dose: 200 mg Folic Acid (Folic Acid) 1 mg PO [facility] Last Admin: 08/30/18 22:01 Dose: 1 mg Hydroxyurea (Hydrea) 1,500 mg PO [facility] Last Admin: 08/30/18 22:01 Dose: 1,500 mg Morphine Sulfate (Morphine) 1 mg IVP Q6 PRN PRN Reason: Pain, moderate (4-7) Last Admin: 08/31/18 10:24 Dose: 1 mg Morphine Sulfate (Morphine) 2 mg IVP Q6 PRN PRN Reason: Pain, severe (8-10) Last Admin: 08/31/18 08:11 Dose: 2 mg Tramadol HCl (Ultram) 50 mg PO Q6 PRN PRN Reason: Pain, Mild (1-3) Last Admin: 08/30/18 15:31 Dose: 50 mg - Labs Labs: 08/31/18 05:50 08/31/18 05:50 PT 13.5 Seconds (9.8-13.1) H 08/29/18 14:05 INR 1.2 08/29/18 14:05 APTT 29.2 Seconds (25.6-37.1) 08/29/18 14:05 - Skin Additional comments: Constitutional Appears: Non-toxic, No Acute Distress - Eye Exam Eye Exam: Scleral icterus( improving) - ENT Exam ENT Exam: Mucous Membranes Moist - Respiratory Exam Respiratory Exam: Clear to Ausculation Bilateral, NORMAL BREATHING PATTERN. absent: Chest Wall Tenderness, Rales, Rhonchi, Wheezes, Respiratory Distress - Cardiovascular Exam Cardiovascular Exam: REGULAR RHYTHM, +S1, +S2 - GI/Abdominal Exam GI & Abdominal Exam: Soft, Normal Bowel Sounds. absent: Distended, Guarding, Tenderness - Extremities Exam Extremities Exam: Normal Inspection. absent: Calf Tenderness, Pedal Edema - Back Exam Back Exam: NORMAL INSPECTION. absent: CVA tenderness (L), CVA tenderness (R) - Neurological Exam Neurological Exam: Alert, Awake, Oriented x3 - Psychiatric Exam Psychiatric exam: Normal Affect, Normal Mood - Skin Skin Exam: Dry, Intact, Pallor Assessment and Plan - Assessment and Plan (Free Text) Assessment: 23 F with pmhx of sickle cell diseases, and Asthma admitted with intractable lower back pain likely secondary to Sickle cell crisis. Patient has been managed with oxygen via NC, hydration, and pain control. Hgb stable since yesterday 8.4, and retic count trending down. Plan: Sickle cell crisis Intractable lower back pain MedSurg unit afebrile Oxygen via NC at 2 LPM PRN 100 % oxygen sat in room air on admission c/w Hydration with NS 125 ml/hr Pain control with Morphine, and tramadol c/w home Hydroxyurea. Will consider to increase dose to 1000 mg BID after Hemo eval c/w home folic acid on colace to prevent medication induced constipation Hemo/Onc consult, recommendations are appreciated Stable hgb: 8.4 Retic count decreasing f/u repeat CBC UA on admission with no evidence of infection CXR : reported as no active disease elevated retic count on admission elevated total bili on admission Lumbar spine x ray on admission reported as unremarkable test PICC line on R upper arm for IV fluids, difficult to get, and keep a peripheral line, per nurse report c/w Hydration with NS 125 ml/hr Diet - regular diet - DVT prophylaxis - SCD, patient ambulating
--- NOTE | 2018-08-31 13:40 | CP.PCM.PN ---
Subjective - Date & Time of Evaluation Date of Evaluation: 08/31/18 Time of Evaluation: 07:55 Objective - Vital Signs/Intake and Output Vital Signs (last 24 hours): Temp Pulse Resp BP Pulse Ox 99.2 F 102 H 19 107/63 95 08/31/18 08:10 08/31/18 08:13 08/31/18 08:10 08/31/18 08:10 08/31/18 08:10 - Medications Medications: Current Medications Docusate Sodium (Colace) 200 mg PO DAILY [facility] Last Admin: 08/31/18 10:24 Dose: 200 mg Folic Acid (Folic Acid) 1 mg PO HS [facility] Last Admin: 08/30/18 22:01 Dose: 1 mg Hydroxyurea (Hydrea) 1,500 mg PO HS [facility] Last Admin: 08/30/18 22:01 Dose: 1,500 mg Morphine Sulfate (Morphine) 1 mg IVP Q6 PRN PRN Reason: Pain, moderate (4-7) Last Admin: 08/31/18 10:24 Dose: 1 mg Morphine Sulfate (Morphine) 2 mg IVP Q6 PRN PRN Reason: Pain, severe (8-10) Last Admin: 08/31/18 08:11 Dose: 2 mg Tramadol HCl (Ultram) 50 mg PO Q6 PRN PRN Reason: Pain, Mild (1-3) Last Admin: 08/30/18 15:31 Dose: 50 mg - Labs Labs: 08/31/18 05:50 08/31/18 05:50 PT 13.5 Seconds (9.8-13.1) H 08/29/18 14:05 INR 1.2 08/29/18 14:05 APTT 29.2 Seconds (25.6-37.1) 08/29/18 14:05 - Skin Additional comments: Constitutional Appears: Non-toxic, No Acute Distress - Eye Exam Eye Exam: Scleral icterus - ENT Exam ENT Exam: Mucous Membranes Moist - Respiratory Exam Respiratory Exam: Clear to Ausculation Bilateral, NORMAL BREATHING PATTERN. absent: Chest Wall Tenderness, Rales, Rhonchi, Wheezes, Respiratory Distress - Cardiovascular Exam Cardiovascular Exam: REGULAR RHYTHM, +S1, +S2 - GI/Abdominal Exam GI & Abdominal Exam: Soft, Normal Bowel Sounds. absent: Distended, Guarding, Tenderness - Extremities Exam Extremities Exam: Normal Inspection. absent: Calf Tenderness, Pedal Edema - Back Exam Back Exam: NORMAL INSPECTION. absent: CVA tenderness (L), CVA tenderness (R) - Neurological Exam Neurological Exam: Alert, Awake, Oriented x3 - Psychiatric Exam Psychiatric exam: Normal Affect, Normal Mood - Skin Skin Exam: Dry, Intact, Pallor
[2018-09-01 06:18] LABS: BASO # 0.2 K/uL (0.0-0.2); BASO % 1.6 % (0.0-2.0); EOS # 0.1 K/uL (0.0-0.7); EOS % 1.4 % (0.0-4.0); HEMOGLOBIN 8.4 g/dL (12.0-16.0); LYMPH # 3.1 K/uL (1.0-4.3); LYMPH % 31.7 % (20.0-40.0); MEAN CELL VOLUME 116.2 fl (81.0-99.0); MEAN CORPUSCULAR HEMOGLOBIN 42.3 pg (27.0-31.0); MEAN CORPUSCULAR HGB CONC 36.4 g/dL (33.0-37.0); MEAN PLATELET VOLUME 7.8 fl (7.2-11.7); MONO # 1.1 K/uL (0.0-0.8); MONO % 11.7 % (0.0-10.0); NEUT # 5.3 K/uL (1.8-7.0); NEUT % 53.6 % (50.0-75.0); NRBC % 2.4 % (0.0-0.0); RBC 1.99 Mil/uL (3.80-5.20); RED CELL DISTRIBUTION WIDTH 19.7 % (11.5-14.5); WHITE BLOOD COUNT 9.9 K/uL (4.8-10.8)
[2018-09-01] MEDS: Morphine 4 MG/ML VIAL IVP PRN (06:23)
[2018-09-01 08:34] VITALS: BP 113/71; PULSE 98; RESP 20; TEMP 98.4; O2SAT 93
--- NOTE | 2018-09-01 08:58 | CP.PCM.CON ---
History of Present Illness - History of Present Illness History of Present Illness: This is a 23 yrs old female whom I have seen in the past. She has sickle cell disease and asthma. This time she was admitted with c/o low back pain. She was given iv hydration, O2 and was continued on the hydroxyurea which she takes 3 times a day. She has SS crisis every 3-4 months. She is feeling much better today. her CBC shows WBC of 9,9 with a normal differential.the hgb is 8,4, hgb is 8,4gms, Past Patient History - Past Medical History & Family History Past Medical History?: Yes - Past Social History Smoking Status: Never Smoked - CARDIAC Hx Cardiac Disorders: No - PULMONARY Hx Respiratory Disorders: Yes (asthma, sleep apnea) Hx Asthma: Yes - NEUROLOGICAL Hx Neurological Disorder: No - HEENT Hx HEENT Problems: No - RENAL Hx Chronic Kidney Disease: No - ENDOCRINE/METABOLIC Hx Endocrine Disorders: No - HEMATOLOGICAL/ONCOLOGICAL Hx Blood Disorders: Yes (sickle cell) Hx Sickle Cell Disease: Yes - INTEGUMENTARY Hx Dermatological Problems: No - MUSCULOSKELETAL/RHEUMATOLOGICAL Hx Musculoskeletal Disorders: No Hx Falls: No - GASTROINTESTINAL Hx Gastrointestinal Disorders: No - GENITOURINARY/GYNECOLOGICAL Hx Genitourinary Disorders: No - PSYCHIATRIC Hx Psychophysiologic Disorder: No Hx Substance Use: No - SURGICAL HISTORY Hx Surgeries: Yes Hx Cholecystectomy: Yes (At age 11) Hx Tonsillectomy: Yes Other/Comment: adenoidectomy - ANESTHESIA Hx Anesthesia: Yes Hx Anesthesia Reactions: No Hx Malignant Hyperthermia: No Meds Home Medications: Home Medication List Medication Instructions Recorded Confirmed Type Docusate [Colace] 200 mg PO DAILY #30 cap 09/01/18 Rx Folic Acid 1 mg PO HS #30 tab 09/01/18 Rx Hydroxyurea [Hydrea] 1,000 mg PO BID 30 Days #60 cap 09/01/18 Rx traMADol [Ultram] 50 mg PO Q6 PRN #15 tab 09/01/18 Rx Allergies/Adverse Reactions: Allergies Allergy/AdvReac Type Severity Reaction Status Date / Time No Known Allergies Allergy Verified 07/09/18 20:53 - Medications Medications: Current Medications Docusate Sodium (Colace) 200 mg PO DAILY [facility] Last Admin: 08/31/18 10:24 Dose: 200 mg Folic Acid (Folic Acid) 1 mg PO HS [facility] Last Admin: 08/31/18 21:12 Dose: 1 mg Hydroxyurea (Hydrea) 1,000 mg PO BID [facility] Morphine Sulfate (Morphine) 1 mg IVP Q6 PRN PRN Reason: Pain, moderate (4-7) Last Admin: 08/31/18 13:54 Dose: 1 mg Morphine Sulfate (Morphine) 2 mg IVP Q6 PRN PRN Reason: Pain, severe (8-10) Last Admin: 09/01/18 06:23 Dose: 2 mg Tramadol HCl (Ultram) 50 mg PO Q6 PRN PRN Reason: Pain, Mild (1-3) Last Admin: 08/31/18 14:41 Dose: 50 mg Physical Exam - Additional Findings Additional findings: physical rxam; alert,well oriented in no acute distress neck suppleno adenopathy Chest; Clear bilaterally, no rales or rhonchi heart; RSR,no murmur Adomen; soft, no mass no h/s megaly Results - Vital Signs Recent Vital Signs: Last Vital Signs Temp 98.4 F 09/01/18 08:33 Pulse 98 H 09/01/18 08:33 Resp 20 09/01/18 08:33 BP 113/71 09/01/18 08:33 Pulse Ox 93 L 09/01/18 08:33 - Labs Result Diagrams: 09/01/18 06:00 08/31/18 05:50 Labs: Laboratory Results - last 24 hr 09/01/18 06:00 WBC 9.9 RBC 1.99 L Hgb 8.4 L Hct 23.1 L MCV 116.2 H MCH 42.3 H MCHC 36.4 RDW 19.7 H Plt Count 316 MPV 7.8 Neut % (Auto) 53.6 Lymph % (Auto) 31.7 [place] % (Auto) 11.7 H Eos % (Auto) 1.4 Baso % (Auto) 1.6 Neut # (Auto) 5.3 Lymph # (Auto) 3.1 [place] # (Auto) 1.1 H Eos # (Auto) 0.1 Baso # (Auto) 0.2 Assessment & Plan - Assessment and Plan (Free Text) Assessment: impression; Sicklle cell crisis, Plan: plan; will increase the dose of hydrea to 500 mg qid, to reduce crisis occurances Monitor CBC q 2 weeks for a month to see if the Wbc and platelets go down as well, because then we will have to go back to [facility] - Date & Time Date: 09/01/18 Time: 09:17
--- NOTE | 2018-09-01 11:07 | CP.PCM.DIS ---
Provider - Provider Date of Admission: 09/01/18 01:26 Attending physician: Mihaela Bynum DO Consults: 08/31/18 13:36 Hematology Oncology Consult Routine Comment: Consulting Provider: Alethea Gallagher Consulting Physician: Alethea Gallagher Reason for Consult: sickle cell crisis Time Spent in preparation of Discharge (in minutes): 30 Diagnosis - Discharge Diagnosis (1) Sickle cell crisis Status: Acute Comment: Improved. Hydroxyurea was increased to 500 mg QID as per Hemo recs. Needs follow up as outpatient with Hematology. Monitor CBC q 2 weeks for a month to see if the Wbc and platelets go down as well, because then we will have to go back to [facility]. Hospital Course - Lab Results Lab Results: Most Recent Lab Values WBC 9.9 K/uL (4.8-10.8) 09/01/18 06:00 RBC 1.99 Mil/uL (3.80-5.20) L 09/01/18 06:00 Hgb 8.4 g/dL (12.0-16.0) L 09/01/18 06:00 Hct 23.1 % (34.0-47.0) L 09/01/18 06:00 MCV 116.2 fl (81.0-99.0) H 09/01/18 06:00 MCH 42.3 pg (27.0-31.0) H 09/01/18 06:00 MCHC 36.4 g/dL (33.0-37.0) 09/01/18 06:00 RDW 19.7 % (11.5-14.5) H 09/01/18 06:00 Plt Count 316 K/uL (130-400) 09/01/18 06:00 MPV 7.8 fl (7.2-11.7) 09/01/18 06:00 Neut % (Auto) 53.6 % (50.0-75.0) 09/01/18 06:00 Lymph % (Auto) 31.7 % (20.0-40.0) 09/01/18 06:00 [place] % (Auto) 11.7 % (0.0-10.0) H 09/01/18 06:00 Eos % (Auto) 1.4 % (0.0-4.0) 09/01/18 06:00 Baso % (Auto) 1.6 % (0.0-2.0) 09/01/18 06:00 Neut # (Auto) 5.3 K/uL (1.8-7.0) 09/01/18 06:00 Lymph # (Auto) 3.1 K/uL (1.0-4.3) 09/01/18 06:00 [place] # (Auto) 1.1 K/uL (0.0-0.8) H 09/01/18 06:00 Eos # (Auto) 0.1 K/uL (0.0-0.7) 09/01/18 06:00 Baso # (Auto) 0.2 K/uL (0.0-0.2) 09/01/18 06:00 Retic Count 8.0 % (0.5-1.5) H 08/31/18 05:50 PT 13.5 Seconds (9.8-13.1) H 08/29/18 14:05 INR 1.2 08/29/18 14:05 APTT 29.2 Seconds (25.6-37.1) 08/29/18 14:05 Sodium 137 mmol/l (132-148) 08/31/18 05:50 Potassium 4.0 MMOL/L (3.6-5.0) 08/31/18 05:50 Chloride 103 mmol/L (98-107) 08/31/18 05:50 Carbon Dioxide 25 mmol/L (22-30) 08/31/18 05:50 Anion Gap 13 (10-20) 08/31/18 05:50 BUN 4 mg/dl (7-17) L 08/31/18 05:50 Creatinine 0.3 mg/dl (0.7-1.2) L 08/31/18 05:50 Est GFR ( Amer) > 60 08/31/18 05:50 Est GFR (Non-Af Amer) > 60 08/31/18 05:50 Random Glucose 107 mg/dL (65-105) H 08/31/18 05:50 Calcium 8.7 mg/dL (8.4-10.2) 08/31/18 05:50 Total Bilirubin 5.4 mg/dl (0.2-1.3) H 08/31/18 05:50 AST 65 U/L (14-36) H D 12/06/18 05:50 ALT 47 U/L (9-52) 08/31/18 05:50 Alkaline Phosphatase 114 U/L (38-126) 08/31/18 05:50 Total Protein 7.8 G/DL (6.3-8.2) 08/31/18 05:50 Albumin 3.6 g/dL (3.5-5.0) 08/31/18 05:50 Globulin 4.1 gm/dL (2.2-3.9) H 08/31/18 05:50 Albumin/Globulin Ratio 0.9 (1.0-2.1) L 08/31/18 05:50 Urine Color Yellow (YELLOW) 08/29/18 17:00 Urine Clarity Slight-cloudy (Clear) 08/29/18 17:00 Urine pH 6.0 (5.0-8.0) 08/29/18 17:00 Ur Specific [place] 1.010 (1.003-1.030) 08/29/18 17:00 Urine Protein Negative mg/dL (NEGATIVE) 08/29/18 17:00 Urine Glucose (UA) Negative mg/dL (Normal) 08/29/18 17:00 Urine Ketones Negative mg/dL (NEGATIVE) 08/29/18 17:00 Urine Blood Small (NEGATIVE) 08/29/18 17:00 Urine Nitrate Negative (NEGATIVE) 08/29/18 17:00 Urine Bilirubin Negative (NEGATIVE) 08/29/18 17:00 Urine Urobilinogen 1.0 mg/dL (0.2-1.0) 08/29/18 17:00 Ur Leukocyte Esterase Negative [place]/uL (Negative) 08/29/18 17:00 Urine RBC (Auto) 6 /hpf (0-3) H 08/29/18 17:00 Urine Microscopic WBC 4 /hpf (0-5) 08/29/18 17:00 Ur Squamous Epith Cells 3 /hpf (0-5) 08/29/18 17:00 Urine Bacteria Rare (<OCC) 08/29/18 17:00 - Hospital Course Hospital Course: 23 F with pmhx of sickle cell diseases, and Asthma admitted with intractable lower back pain likely secondary to Sickle cell crisis. On admission urine was positive for small blood, but patient was on her menses. CXR no evidence of active disease. No evidence of infection. Afebrile. On admission patient was managed with oxygen via NC, hydration, and pain control. Hgb stable since yesterday 8.4, and Retic count trending down. Hemo/Onc was consulted. Dr. Candelario Gallagher recommended to increase hydroxyurea to 500 mg QID ( was in 1500 mg HS). Monitor CBC q 2 weeks for a month to see if the Wbc and platelets go down as well, because then we will have to go back to [facility]. Patient was seen, and examined at bedside this morning. Patient reported that she was feeling better, and pain free at the time of evaluation. Has been afebrile, and still without evidence of infection. Stable to be discharge home with recommended f/u by [employer]. F/U at [facility] on with Dr. Webster - Date & Time of H&P Date of H&P: 08/29/18 Time of H&P: 16:30 Discharge Exam - Head Exam Head Exam: ATRAUMATIC, NORMAL INSPECTION, NORMOCEPHALIC Discharge Plan - Discharge Medications Prescriptions: Docusate [Colace] 200 mg PO DAILY #30 cap Folic Acid 1 mg PO HS #30 tab Hydroxyurea [Hydrea] 500 mg PO QID 30 Days #120 cap Ibuprofen [Motrin Tab] 600 mg PO Q6 PRN #20 tab PRN Reason: Pain, Moderate (4-7) traMADol [Ultram] 50 mg PO Q6 PRN #15 tab PRN Reason: Pain, Severe (8-10) - Follow Up Plan Condition: IMPROVED Disposition: HOME/ ROUTINE Patient education suggested?: Yes Instructions: Sickle Cell Disease (DC) Additional Instructions: Melvina en la [facility] [place] sep 07 a las 11:20am con Dr. Webster favor de llegar media hora temprano para registrarse. tiene que regresar para sacar devorah dentro de 2 semanas Referrals: [facility] [place] [Outside] Alethea Gallagher MD [Staff Provider] -
== END 2018-09-01 13:09 | disposition home or self-care (01) | DRG 662 ==
LOC: H.ER 09:57 → H.ERHOLD 15:36 → H.MEDSURG1 21:34 → OBSVTOIN 09-01 01:26
PROVIDERS: ADMIT Student in an Organized Health Care Education/Training Program; ATTEND Student in an Organized Health Care Education/Training Program
PROC: 02HV33Z Insertion of Infusion Device into Superior Vena Cava, Percutaneous Approach (ICD-10-PCS; principal; 2018-08-29)
PROC: B518ZZA Fluoroscopy of Superior Vena Cava, Guidance (ICD-10-PCS; 2018-08-29)
PROC: B548ZZA Ultrasonography of Superior Vena Cava, Guidance (ICD-10-PCS; 2018-08-29)
PROC: 3E04329 Introduction of Other Anti-infective into Central Vein, Percutaneous Approach (ICD-10-PCS; 2018-08-29)
DX: D57.00 Hb-SS disease with crisis, unspecified (principal); M54.5 Low back pain; G47.30 Sleep apnea, unspecified; J45.909 Unspecified asthma, uncomplicated; Z90.49 Acquired absence of other specified parts of digestive tract